=== PATIENT | male | born 1975 | race Two or more races ===

== ENCOUNTER 2017-01-01 12:29 | Inpatient (IN) | payer BC ==
[2017-01-01 13:50] VITALS: BMI 27.2
--- NOTE | 2017-01-01 16:54 | HP ---
COWS - Scale Resting Pulse: 0= [place] 80 or Below Sweatin= Chills/Flushing Restless Observation: 3= Extraneous Movement Pupil Size: 0= Normal to Room Light Bone or Joint Aches: 2= Severe Diffuse Aches Runny Nose/ Eye Tearin= Runny Nose/Eyes GI Upset > 30mins: 2= Nausea/Diarrhea Tremor Observation: 2= Slight Tremor Visible Yawning Observation: 0= None Anxiety or Irritability: 2=Irritable/Anxious Goose Flesh Skin: 0=Smooth Skin COWS Score: 14 CIWA Score - CIWA Score Nausea/Vomitin-Mild Nausea/No Vomiting Muscle Tremors: 3 Anxiety: 4-Mod. Anxious/Guarded Agitation: 4-Moderately Restless Paroxysmal Sweats: 1-Minimal Palms Moist Orientation: 0-Oriented Tacttile Disturbances: 0-None Auditory Disturbances: 0-None Visual Disturbances: 0-None Headache: 1-Very Mild CIWA-Ar Total Score: 14 Admission ROS BHS - HPI Chief Complaint: withdrawal sx Allergies/Adverse Reactions: Allergies Allergy/AdvReac Type Severity Reaction Status Date / Time No Known Allergies Allergy Verified 01/01/17 13:34 History of Present Illness: 41 years old male with long history of opiate cocaine xanax nicotine dependence has hypertension diabetes ii and depression, abscess in both arms treated at [facility] discharged clindamycin 100 mg qid x 10 days + bactrim ds bid x 7 days Exam Limitations: No Limitations - Ebola screening Have you traveled outside of the country in the last 21 days: No Have you had contact with anyone from an Ebola affected area: No Have you been sick,other than usual withdrawal symptoms: No Do you have a fever: No - Review of Systems Constitutional: Changes in sleep, Weight Stable EENT: reports: No Symptoms Reported Respiratory: reports: No Symptoms reported Cardiac: reports: No Symptoms Reported GI: reports: Nausea, Poor Fluid Intake, Abdominal cramping : reports: No Symptoms Reported Musculoskeletal: reports: Back Pain, Joint Pain, Muscle Pain, Neck Pain Integumentary: reports: Change in Color (both arms iv heroin abscess) Neuro: reports: Tremors Endocrine: reports: No Symptoms Reported Hematology: reports: No Symptoms Reported Psychiatric: reports: Judgement Intact, Orientated x3, Anxious, Depressed Other Systems: Reviewed and Negative Patient History - Patient Medical History Hx Anemia: No Hx Asthma: No Hx Chronic Obstructive Pulmonary Disease (COPD): No Hx Cancer: No Hx Cardiac Disorders: No Hx Congestive Heart Failure: No Hx Hypertension: Yes Hx Hypercholesterolemia: No Hx Pacemaker: No HX Cerebrovascular Accident: No Hx Seizures: No Hx Dementia: No Hx Diabetes: Yes (IDDM) Hx Gastrointestinal Disorders: No Hx Liver Disease: No Hx Genitourinary Disorders: No Hx Sexually Transmitted Disorders: No Hx Renal Disease (ESRD): No Hx Thyroid Disease: No Hx Human Immunodeficiency Virus (HIV): No Hx Hepatitis C: No Hx Depression: Yes Hx Suicide Attempt: No Hx Bipolar Disorder: No Hx Schizophrenia: No - Patient Surgical History Past Surgical History: Yes Hx Neurologic Surgery: No Hx Cataract Extraction: No Hx Cardiac Surgery: No Hx Lung Surgery: No Hx Breast Surgery: No Hx Breast Biopsy: No Hx Abdominal Surgery: No Hx Appendectomy: Yes (in 2013) Hx Cholecystectomy: No Hx Genitourinary Surgery: No Hx Orthopedic Surgery: No Anesthesia Reaction: No - PPD History Previous Implant?: Yes Documented Results: Negative w/o proof Implanted On Prior [facility] Admission?: No PPD to be Administered?: Yes - Smoking Cessation Smoking history: Current every day smoker Have you smoked in the past 12 months: Yes Aproximately how many cigarettes per day: 20 Cigars Per Day: 0 Hx Chewing Tobacco Use: No Initiated information on smoking cessation: Yes 'Breaking Loose' booklet given: 01/01/17 - Substance & Tx. History Hx Alcohol Use: No Hx Substance Use: Yes Substance Use Type: Cocaine, Heroin, Opiates, Tranquilizers Hx Substance Use Treatment: No - Substances Abused Heroin Route: Injection Frequency: Daily Amount used: 20 bags Age of first use: 38 Date of Last Use: 12/30/16 Cocaine Route: Injection Frequency: Daily Amount used: $100 Age of first use: 27 Date of Last Use: 12/30/16 Xanax Route: Oral Frequency: Daily Amount used: 10-20 mg. Age of first use: 41 Date of Last Use: 12/30/16 Family Disease History - Family Disease History Family Disease History: Diabetes: Father, Mother, Heart Disease: Father, Mother Admission Physical Exam BHS - Vital Signs Vital Signs: Vital Signs - 24 hr 01/01/17 13:45 Temperature 97.9 F Pulse Rate 67 Respiratory 20 Rate Blood Pressure 134/76 - Physical General Appearance: Yes: Appropriately Dressed, Mild Distress, Tremorous, Irritable, Sweating, Anxious HEENTM: Yes: Hearing grossly Normal, Normal ENT Inspection, Normocephalic, Normal Voice Respiratory: Yes: Chest Non-Tender, Lungs Clear, Normal Breath Sounds, No Respiratory Distress, No Accessory Muscle Use Neck: Yes: Supple, Trachea in good position Breast: Yes: Breasts Symetrical Cardiology: Yes: Regular Rhythm, Regular Rate, S1, S2 Abdominal: Yes: Normal Bowel Sounds, Non Tender, Soft Genitourinary: Yes: Within Normal Limits Back: Yes: Normal Inspection Musculoskeletal: Yes: full range of Motion, Gait Steady, Back pain, Muscle Pain Extremities: Yes: Normal Range of Motion, Non-Tender, Tremors Neurological: Yes: Fully Oriented, Alert, Motor Strength 5/5, Normal Response, Depressed Affect Integumentary: Yes: Warm, Erythema (both arms abscess), Track [place] Lymphatic: Yes: Within Normal Limits - Diagnostic (1) Cocaine dependence, uncomplicated Current Visit: Yes Status: Chronic (2) Opioid dependence with withdrawal Current Visit: Yes Status: Acute (3) Sedative, hypnotic or anxiolytic dependence with withdrawal, uncomplicated Current Visit: Yes Status: Acute (4) Hypertension Current Visit: Yes Status: Chronic Qualifiers: Hypertension type: essential hypertension Qualified Code(s): I10 - Essential (primary) hypertension (5) Diabetes mellitus type II, controlled Current Visit: Yes Status: Chronic Qualifiers: Diabetes mellitus complication status: without complication Diabetes mellitus terminal worker insulin use: with penitentiary use Qualified Code(s): E11.9 - Type 2 diabetes mellitus without complications; Z79.4 - intermediate frame tender (current) use of insulin; Z79.4 - intermediate frame tender (current) use of insulin; Z79.4 - intermediate frame tender ( current) use of insulin; Z79.4 - intermediate frame tender (current) use of insulin (6) Nicotine dependence Current Visit: Yes Status: Acute Qualifiers: Nicotine product type: cigarettes Substance use status: in withdrawal Qualified Code(s): F17.213 - Nicotine dependence, cigarettes, with withdrawal (7) Depression (emotion) Current Visit: Yes Status: Suspected Qualifiers: Depression Type: dysthymia Qualified Code(s): F34.1 - Dysthymic disorder (8) Abscess Current Visit: Yes Status: Acute Comment: both arms Cleared for Admission BHS - Detox or Rehab [facility] Level of Care: Medically Managed Detox Regimen/Protocol: Methadone/Valium [facility] Breath Alcohol Content Breath Alcohol Content: 0 Urine Drug Screen - Results Drug Screen Negative: No Urine Drug Screen Results: EUNICE-Cocaine, OPI-Opiates, BZO-Benzodiazepines, MTD- Methadone
[2017-01-01] MEDS ORDERED: MAGNESIUM CITRATE 300 ML BOTTLE PO PRN (16:57)
[2017-01-01] MEDS ORDERED: ACETAMINOPHEN 325 MG TABLET (FP) PO PRN (16:57)
[2017-01-01] MEDS ORDERED: IBUPROFEN 400 MG TABLET (FP) PO PRN (16:57)
[2017-01-01] MEDS ORDERED: P-EPHED 60MG/TRIPROLIDI 2.5MG TABLET PO PRN (16:57)
[2017-01-01] MEDS ORDERED: MAG HYDROX/AL HYDROX/SIMETH 30 ML UNIT-DOSE CUP PO PRN (16:57)
[2017-01-01] MEDS ORDERED: MAGNESIUM HYDROX 2400MG/30ML ORAL SUSPENSION 30 ML CUP PO PRN (16:57)
[2017-01-01] MEDS ORDERED: guaiFENesin/D-METHORPHAN HB 10 ML UNIT-DOSE CUPS PO PRN (16:57)
[2017-01-01] MEDS ORDERED: MENTHOL/PHENOL 1 EACH UD MM PRN (16:57)
[2017-01-01] MEDS ORDERED: LOPERAMIDE HCL 2 MG CAPSULE PO PRN (16:57)
[2017-01-01] MEDS ORDERED: BACLOFEN 10 MG TABLET (FP) PO PRN (17:04)
[2017-01-01] MEDS ORDERED: diazePAM 5 MG TABLET PO ONE (17:30)
[2017-01-01] MEDS ORDERED: METHADONE HCL 10 MG TABLET (FOR DETOX USE ONLY) PO ONE ×2 (17:45→23:00)
[2017-01-01] MEDS: CLINDAMYCIN HCL 150 MG CAPSULE (FP) PO SCH ×2 (18:59→22:41)
[2017-01-01] MEDS: NICOTINE POLACRILEX 2 MG GUM BC PRN (21:01)
[2017-01-01] MEDS: INSULIN SLIDING SCALE (NOVOLOG) 1 VIAL SQ SCH (22:03)
[2017-01-01] MEDS: THIAMINE HCL 100 MG TABLET (FP) PO SCH (22:41)
[2017-01-01] MEDS: diazePAM 5 MG TABLET PO SCH (22:41)
[2017-01-01] MEDS: SULFAMETHOXAZOLE/TRIMETHOPRIM 800MG/160MG D.S. TABLET PO SCH (22:42)
[2017-01-01 22:55] LABS: URINE APPEARANCE CLEAR; URINE BILIRUBIN NEGATIVE (NEGATIVE); URINE BLOOD NEGATIVE (NEGATIVE); URINE COLOR YELLOW; URINE GLUCOSE (UA) NEGATIVE (NEGATIVE); URINE KETONE NEGATIVE (NEGATIVE); URINE NITRITE NEGATIVE (NEGATIVE); URINE PROTEIN NEGATIVE (NEGATIVE); URINE UROBILINOGEN NEGATIVE mg/dL (0.2-1.0)
[2017-01-02] MEDS: diazePAM 5 MG TABLET PO PRN ×3 (04:05→18:20)
[2017-01-02] MEDS: diazePAM 5 MG TABLET PO SCH ×3 (05:22→22:38)
[2017-01-02] MEDS: INSULIN SLIDING SCALE (NOVOLOG) 1 VIAL SQ SCH ×4 (07:35→22:41)
[2017-01-02 09:09] LABS: HIV 1 & 2 AB NEGATIVE; HIV 1 AGp24 NEGATIVE
[2017-01-02 09:50] LABS: MCH 26.8 pg (25.7-33.7); MCHC 32.2 g/dl (32.0-35.9); MEAN CELL VOLUME 83.3 fl (80-96); MEAN PLT VOLUME 9.3 fl (7.5-11.1); PLATELET COUNT 242 K/MM3 (134-434); RDW 13.4 % (11.9-15.9); WHITE BLOOD COUNT 6.5 K/mm3 (4.0-10.0)
[2017-01-02] MEDS ORDERED: METHADONE HCL 10 MG TABLET (FOR DETOX USE ONLY) PO SCH (10:00)
[2017-01-02 10:14] LABS: ALBUMIN 4.1 g/dl (3.4-5.0); ALK PHOS 62 U/L (45-117); ANION GAP 10 (8-16); BILIRUBIN,TOTAL 0.4 mg/dL (0.2-1.0); CALCIUM 9.4 mg/dL (8.5-10.1); CO2 23 mmol/L (21-32); GLUCOSE,RANDOM 134 mg/dL (74-106); SGOT/AST 8 U/L (15-37); SGPT/ALT 15 U/L (12-78); TOT PROT 8.3 g/dl (6.4-8.2)
--- NOTE | 2017-01-02 10:41 | PN ---
[facility] CIWA - CIWA Score Nausea/Vomitin Muscle Tremors: 3 Anxiety: 3 Agitation: 2 Paroxysmal Sweats: 1-Minimal Palms Moist Orientation: 0-Oriented Tacttile Disturbances: 1-Very Mild Itch/Numbness Auditory Disturbances: 1-Very Mild Visual Disturbances: 0-None Headache: 2-Mild CIWA-Ar Total Score: 16 BHS COWS - Scale Resting Pulse: 0= [place] 80 or Below Sweatin= Chills/Flushing Restless Observation: 3= Extraneous Movement Pupil Size: 1= Pupils >than Normal Bone or Joint Aches: 2= Severe Diffuse Aches Runny Nose/ Eye Tearin= Runny Nose/Eyes GI Upset > 30mins: 2= Nausea/Diarrhea Tremor Observation of Outstretched Hands: 2= Slight Tremor Visible Yawning Observation: 1= 1-2x During Session Anxiety or Irritability: 2=Irritable/Anxious Goose Flesh Skin: 0=Smooth Skin COWS Score: 16 [facility] Progress Note (SOAP) Subjective: alert,irritable,anxious,interrupted sleep,pain in the body and back Objective: 01/02/17 10:39 Vital Signs Temperature 98.0 F 01/02/17 10:17 Pulse Rate 60 01/02/17 10:17 Respiratory Rate 18 01/02/17 10:17 Blood Pressure 134/79 01/02/17 10:17 O2 Sat by Pulse Oximetry (%) ekg sinus bradycardia 59/min no chest pain,no sob,no dizziness Laboratory Last Values WBC 6.5 K/mm3 (4.0-10.0) 01/02/17 06:00 RBC 4.68 M/mm3 (4.00-5.60) 01/02/17 06:00 Hgb 12.5 GM/dL (11.7-16.9) 01/02/17 06:00 Hct 39.0 % (35.4-49) 01/02/17 06:00 MCV 83.3 fl (80-96) 01/02/17 06:00 MCH 26.8 pg (25.7-33.7) 01/02/17 06:00 MCHC 32.2 g/dl (32.0-35.9) 01/02/17 06:00 RDW 13.4 % (11.9-15.9) 01/02/17 06:00 Plt Count 242 K/MM3 (134-434) 01/02/17 06:00 MPV 9.3 fl (7.5-11.1) 01/02/17 06:00 Sodium 142 mmol/L (136-145) 01/02/17 06:00 Potassium 3.9 mmol/L (3.5-5.1) 01/02/17 06:00 Chloride 109 mmol/L (98-107) H 01/02/17 06:00 Carbon Dioxide 23 mmol/L (21-32) 01/02/17 06:00 Anion Gap 10 (8-16) 01/02/17 06:00 BUN 11 mg/dL (7-18) 01/02/17 06:00 Creatinine 1.0 mg/dL (0.7-1.3) 01/02/17 06:00 Creat Clearance w eGFR > 60 (>60) 01/02/17 06:00 POC Glucometer 87 UNITS (80-120) 01/02/17 05:21 Random Glucose 134 mg/dL (74-106) H 01/02/17 06:00 Calcium 9.4 mg/dL (8.5-10.1) 01/02/17 06:00 Total Bilirubin 0.4 mg/dL (0.2-1.0) 01/02/17 06:00 AST 8 U/L (15-37) L 01/02/17 06:00 ALT 15 U/L (12-78) 01/02/17 06:00 Alkaline Phosphatase 62 U/L (45-117) 01/02/17 06:00 Total Protein 8.3 g/dl (6.4-8.2) H 01/02/17 06:00 Albumin 4.1 g/dl (3.4-5.0) 01/02/17 06:00 Urine Color Yellow 01/01/17 22:00 Urine Appearance Clear 01/01/17 22:00 Urine pH 5.0 (5.0-8.0) 01/01/17 22:00 Ur Specific [place] 1.029 (1.001-1.035) 01/01/17 22:00 Urine Protein Negative (NEGATIVE) 01/01/17 22:00 Urine Glucose (UA) Negative (NEGATIVE) 01/01/17 22:00 Urine Ketones Negative (NEGATIVE) 01/01/17 22:00 Urine Blood Negative (NEGATIVE) 01/01/17 22:00 Urine Nitrite Negative (NEGATIVE) 01/01/17 22:00 Urine Bilirubin Negative (NEGATIVE) 01/01/17 22:00 Urine Urobilinogen Negative mg/dL (0.2-1.0) 01/01/17 22:00 HIV 1&2 Antibody Screen Negative 01/01/17 15:00 HIV P24 Antigen Negative 01/01/17 15:00 Assessment: 01/02/17 10:40 withdrawal symptom Plan: continue detox,bgm bid,initial glucose is 134
--- NOTE | 2017-01-02 10:50 | PN ---
BHS Progress Note Note: patient is iddm on coverage ,will do bgm achs with insulin coverage
[2017-01-02] MEDS ORDERED: CYCLOBENZAPRINE HCL 10 MG TABLET (FP) PO PRN (10:54)
[2017-01-02] MEDS: SULFAMETHOXAZOLE/TRIMETHOPRIM 800MG/160MG D.S. TABLET PO SCH ×2 (10:56→22:39)
[2017-01-02] MEDS: PRENATAL VITAMINS W/ FOLIC ACID TABLET (FP) PO SCH (10:56)
[2017-01-02] MEDS: CLINDAMYCIN HCL 150 MG CAPSULE (FP) PO SCH ×4 (10:56→22:38)
[2017-01-02] MEDS: ENALAPRIL MALEATE 10 MG TABLET (FP) PO SCH (10:56)
[2017-01-02] MEDS: NICOTINE 21 MG/24 HOURS TOPICAL PATCH TD SCH (10:57)
[2017-01-02] MEDS: NICOTINE POLACRILEX 2 MG GUM BC PRN ×2 (10:57→18:36)
[2017-01-02] MEDS ORDERED: cloNIDine HCL 0.1 MG TABLET PO ONE (11:13)
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
[2017-01-02 17:49] LABS: URINE LEUK ESTERASE Negative (NEGATIVE)
[2017-01-02] MEDS: THIAMINE HCL 100 MG TABLET (FP) PO SCH (22:38)
[2017-01-02] MEDS: ZOLPIDEM TARTRATE 10 MG TABLET (PARK CARE ONLY) PO PRN (22:40)
[2017-01-02] MEDS: cloNIDine HCL 0.1 MG TABLET PO SCH (22:41)
[2017-01-02] MEDS: busPIRone HCL 10 MG TABLET (FP) PO SCH (22:41)
[2017-01-03] MEDS: diazePAM 5 MG TABLET PO PRN ×3 (03:00→17:18)
[2017-01-03] MEDS: INSULIN SLIDING SCALE (NOVOLOG) 1 VIAL SQ SCH ×4 (06:38→21:58)
[2017-01-03] MEDS: diazePAM 5 MG TABLET PO SCH ×2 (08:59→22:40)
[2017-01-03] MEDS: PRENATAL VITAMINS W/ FOLIC ACID TABLET (FP) PO SCH (10:56)
[2017-01-03] MEDS: METHADONE HCL 5 MG TABLET (FOR DETOX USE ONLY) PO SCH (10:56)
[2017-01-03] MEDS: ENALAPRIL MALEATE 10 MG TABLET (FP) PO SCH (10:57)
[2017-01-03] MEDS: CLINDAMYCIN HCL 150 MG CAPSULE (FP) PO SCH ×4 (10:57→22:39)
[2017-01-03] MEDS: cloNIDine HCL 0.1 MG TABLET PO SCH ×2 (10:58→22:39)
[2017-01-03] MEDS: NICOTINE 21 MG/24 HOURS TOPICAL PATCH TD SCH (10:59)
[2017-01-03] MEDS: NICOTINE POLACRILEX 2 MG GUM BC PRN ×2 (10:59→16:43)
[2017-01-03] MEDS: SULFAMETHOXAZOLE/TRIMETHOPRIM 800MG/160MG D.S. TABLET PO SCH ×2 (10:59→22:40)
[2017-01-03] MEDS: busPIRone HCL 10 MG TABLET (FP) PO SCH ×2 (11:02→22:39)
--- NOTE | 2017-01-03 15:04 | PN ---
[facility] CIWA - CIWA Score Nausea/Vomitin-No Nausea/No Vomiting Muscle Tremors: 4-Moderate,w/Arms Extend Anxiety: 4-Mod. Anxious/Guarded Agitation: 4-Moderately Restless Paroxysmal Sweats: 3 Orientation: 0-Oriented Tacttile Disturbances: 0-None Auditory Disturbances: 0-None Visual Disturbances: 0-None Headache: 0-None Present CIWA-Ar Total Score: 15 BHS COWS - Scale Resting Pulse: 0= [place] 80 or Below Sweatin=Flushed/Facial Moisture Restless Observation: 1= Difficult to Sit Still Pupil Size: 0= Normal to Room Light Bone or Joint Aches: 2= Severe Diffuse Aches Runny Nose/ Eye Tearin= Runny Nose/Eyes GI Upset > 30mins: 2= Nausea/Diarrhea Tremor Observation of Outstretched Hands: 2= Slight Tremor Visible Yawning Observation: 1= 1-2x During Session Anxiety or Irritability: 2=Irritable/Anxious Goose Flesh Skin: 0=Smooth Skin COWS Score: 14 S Progress Note (SOAP) Subjective: anxiety,tremors,sweating,interrupted sleep,restless Objective: 01/03/17 15:02 Vital Signs - 8 hr 01/03/17 01/03/17 10:00 14:08 Temperature 97.9 F 98.1 F Pulse Rate 55 L 67 Respiratory 18 18 Rate Blood Pressure 117/67 112/70 Laboratory Tests 01/01/17 01/01/17 01/01/17 06:00 14:01 15:00 WBC RBC Hgb Hct MCV MCH MCHC RDW Plt Count MPV Sodium Potassium Chloride Carbon Dioxide Anion Gap BUN Creatinine Creat Clearance w eGFR POC Glucometer 101 Random Glucose Calcium Total Bilirubin AST ALT Alkaline Phosphatase Total Protein Albumin Urine Color Urine Appearance Urine pH Ur Specific [place] Urine Protein Urine Glucose (UA) Urine Ketones Urine Blood Urine Nitrite Urine Bilirubin Urine Urobilinogen Ur Leukocyte Esterase RPR Titer Hepatitis C Antibody >11.0 H HIV 1&2 Antibody Screen Negative HIV P24 Antigen Negative 01/01/17 01/01/17 01/02/17 21:55 22:00 05:21 WBC RBC Hgb Hct MCV MCH MCHC RDW Plt Count MPV Sodium Potassium Chloride Carbon Dioxide Anion Gap BUN Creatinine Creat Clearance w eGFR POC Glucometer 102 87 Random Glucose Calcium Total Bilirubin AST ALT Alkaline Phosphatase Total Protein Albumin Urine Color Yellow Urine Appearance Clear Urine pH 5.0 Ur Specific [place] 1.029 Urine Protein Negative Urine Glucose (UA) Negative Urine Ketones Negative Urine Blood Negative Urine Nitrite Negative Urine Bilirubin Negative Urine Urobilinogen Negative Ur Leukocyte Esterase Negative RPR Titer Hepatitis C Antibody HIV 1&2 Antibody Screen HIV P24 Antigen 01/02/17 01/02/17 01/02/17 06:00 06:00 06:00 WBC 6.5 RBC 4.68 Hgb 12.5 Hct 39.0 MCV 83.3 MCH 26.8 MCHC 32.2 RDW 13.4 Plt Count 242 MPV 9.3 Sodium 142 Potassium 3.9 Chloride 109 H Carbon Dioxide 23 Anion Gap 10 BUN 11 Creatinine 1.0 Creat Clearance w eGFR > 60 POC Glucometer Random Glucose 134 H Calcium 9.4 Total Bilirubin 0.4 AST 8 L ALT 15 Alkaline Phosphatase 62 Total Protein 8.3 H Albumin 4.1 Urine Color Urine Appearance Urine pH Ur Specific [place] Urine Protein Urine Glucose (UA) Urine Ketones Urine Blood Urine Nitrite Urine Bilirubin Urine Urobilinogen Ur Leukocyte Esterase RPR Titer Nonreactive Hepatitis C Antibody HIV 1&2 Antibody Screen HIV P24 Antigen 01/02/17 01/02/17 01/02/17 11:19 16:20 22:37 WBC RBC Hgb Hct MCV MCH MCHC RDW Plt Count MPV Sodium Potassium Chloride Carbon Dioxide Anion Gap BUN Creatinine Creat Clearance w eGFR POC Glucometer 119 118 149 Random Glucose Calcium Total Bilirubin AST ALT Alkaline Phosphatase Total Protein Albumin Urine Color Urine Appearance Urine pH Ur Specific [place] Urine Protein Urine Glucose (UA) Urine Ketones Urine Blood Urine Nitrite Urine Bilirubin Urine Urobilinogen Ur Leukocyte Esterase RPR Titer Hepatitis C Antibody HIV 1&2 Antibody Screen HIV P24 Antigen labs noted Assessment: 01/03/17 15:03 Withdrawal sx. Plan: Continue detox
[2017-01-03] MEDS: THIAMINE HCL 100 MG TABLET (FP) PO SCH (22:39)
[2017-01-04] MEDS: diazePAM 5 MG TABLET PO PRN ×2 (04:10→14:10)
[2017-01-04] MEDS: INSULIN SLIDING SCALE (NOVOLOG) 1 VIAL SQ SCH ×4 (06:49→22:23)
[2017-01-04] MEDS: NICOTINE 21 MG/24 HOURS TOPICAL PATCH TD SCH (10:24)
[2017-01-04] MEDS: SULFAMETHOXAZOLE/TRIMETHOPRIM 800MG/160MG D.S. TABLET PO SCH ×2 (10:24→22:22)
[2017-01-04] MEDS: diazePAM 5 MG TABLET PO SCH ×2 (10:24→22:22)
[2017-01-04] MEDS: CLINDAMYCIN HCL 150 MG CAPSULE (FP) PO SCH ×4 (10:24→22:22)
[2017-01-04] MEDS: PRENATAL VITAMINS W/ FOLIC ACID TABLET (FP) PO SCH (10:24)
[2017-01-04] MEDS: cloNIDine HCL 0.1 MG TABLET PO SCH ×2 (10:25→22:26)
[2017-01-04] MEDS: ENALAPRIL MALEATE 10 MG TABLET (FP) PO SCH (10:25)
[2017-01-04] MEDS: METHADONE HCL 5 MG TABLET (FOR DETOX USE ONLY) PO SCH (10:25)
[2017-01-04] MEDS: busPIRone HCL 10 MG TABLET (FP) PO SCH ×2 (10:26→22:22)
[2017-01-04] MEDS: NICOTINE POLACRILEX 2 MG GUM BC PRN (10:28)
[2017-01-04] MEDS ORDERED: ONDANSETRON *ODT* 4 MG TABLET SL PRN (11:02)
[2017-01-04] MEDS ORDERED: ONDANSETRON *ODT* 4 MG TABLET SL ONE (11:02)
[2017-01-04] MEDS ORDERED: IBUPROFEN 400 MG TABLET (FP) PO PRN (11:08)
--- NOTE | 2017-01-04 11:14 | PN ---
[facility]HS Progress Note (SOAP) Subjective: Nausea,sweating,muscle aches,anxiety. Objective: 01/04/17 11:12 Vital Signs - 8 hr 01/04/17 01/04/17 01/04/17 03:30 06:00 09:31 Temperature 97.7 F 97.5 F L Pulse Rate 49 L 55 L Respiratory 18 18 18 Rate Blood Pressure 95/49 98/61 Laboratory Tests 01/01/17 01/01/17 01/01/17 06:00 14:01 15:00 WBC RBC Hgb Hct MCV MCH MCHC RDW Plt Count MPV Sodium Potassium Chloride Carbon Dioxide Anion Gap BUN Creatinine Creat Clearance w eGFR POC Glucometer 101 Random Glucose Calcium Total Bilirubin AST ALT Alkaline Phosphatase Total Protein Albumin Urine Color Urine Appearance Urine pH Ur Specific [place] Urine Protein Urine Glucose (UA) Urine Ketones Urine Blood Urine Nitrite Urine Bilirubin Urine Urobilinogen Ur Leukocyte Esterase RPR Titer Hepatitis C Antibody >11.0 H HIV 1&2 Antibody Screen Negative HIV P24 Antigen Negative 01/01/17 01/01/17 01/02/17 21:55 22:00 05:21 WBC RBC Hgb Hct MCV MCH MCHC RDW Plt Count MPV Sodium Potassium Chloride Carbon Dioxide Anion Gap BUN Creatinine Creat Clearance w eGFR POC Glucometer 102 87 Random Glucose Calcium Total Bilirubin AST ALT Alkaline Phosphatase Total Protein Albumin Urine Color Yellow Urine Appearance Clear Urine pH 5.0 Ur Specific [place] 1.029 Urine Protein Negative Urine Glucose (UA) Negative Urine Ketones Negative Urine Blood Negative Urine Nitrite Negative Urine Bilirubin Negative Urine Urobilinogen Negative Ur Leukocyte Esterase Negative RPR Titer Hepatitis C Antibody HIV 1&2 Antibody Screen HIV P24 Antigen 01/02/17 01/02/17 01/02/17 06:00 06:00 06:00 WBC 6.5 RBC 4.68 Hgb 12.5 Hct 39.0 MCV 83.3 MCH 26.8 MCHC 32.2 RDW 13.4 Plt Count 242 MPV 9.3 Sodium 142 Potassium 3.9 Chloride 109 H Carbon Dioxide 23 Anion Gap 10 BUN 11 Creatinine 1.0 Creat Clearance w eGFR > 60 POC Glucometer Random Glucose 134 H Calcium 9.4 Total Bilirubin 0.4 AST 8 L ALT 15 Alkaline Phosphatase 62 Total Protein 8.3 H Albumin 4.1 Urine Color Urine Appearance Urine pH Ur Specific [place] Urine Protein Urine Glucose (UA) Urine Ketones Urine Blood Urine Nitrite Urine Bilirubin Urine Urobilinogen Ur Leukocyte Esterase RPR Titer Nonreactive Hepatitis C Antibody HIV 1&2 Antibody Screen HIV P24 Antigen 01/02/17 01/02/17 01/02/17 11:19 16:20 22:37 WBC RBC Hgb Hct MCV MCH MCHC RDW Plt Count MPV Sodium Potassium Chloride Carbon Dioxide Anion Gap BUN Creatinine Creat Clearance w eGFR POC Glucometer 119 118 149 Random Glucose Calcium Total Bilirubin AST ALT Alkaline Phosphatase Total Protein Albumin Urine Color Urine Appearance Urine pH Ur Specific [place] Urine Protein Urine Glucose (UA) Urine Ketones Urine Blood Urine Nitrite Urine Bilirubin Urine Urobilinogen Ur Leukocyte Esterase RPR Titer Hepatitis C Antibody HIV 1&2 Antibody Screen HIV P24 Antigen 01/03/17 01/04/17 21:41 06:08 WBC RBC Hgb Hct MCV MCH MCHC RDW Plt Count MPV Sodium Potassium Chloride Carbon Dioxide Anion Gap BUN Creatinine Creat Clearance w eGFR POC Glucometer 106 90 Random Glucose Calcium Total Bilirubin AST ALT Alkaline Phosphatase Total Protein Albumin Urine Color Urine Appearance Urine pH Ur Specific [place] Urine Protein Urine Glucose (UA) Urine Ketones Urine Blood Urine Nitrite Urine Bilirubin Urine Urobilinogen Ur Leukocyte Esterase RPR Titer Hepatitis C Antibody HIV 1&2 Antibody Screen HIV P24 Antigen labs noted Assessment: 01/04/17 11:13 Withdrawal sx. Plan: Continue detox
[2017-01-04] MEDS: CYCLOBENZAPRINE HCL 10 MG TABLET (FP) PO SCH ×2 (14:06→22:22)
[2017-01-04] MEDS: hydrOXYzine PAMOATE 50 MG CAPSULE (FP) PO PRN (18:18)
[2017-01-04] MEDS: THIAMINE HCL 100 MG TABLET (FP) PO SCH (22:22)
[2017-01-04] MEDS: ZOLPIDEM TARTRATE 10 MG TABLET (PARK CARE ONLY) PO PRN (22:22)
[2017-01-05] MEDS: hydrOXYzine PAMOATE 50 MG CAPSULE (FP) PO PRN (06:09)
[2017-01-05] MEDS: CYCLOBENZAPRINE HCL 10 MG TABLET (FP) PO SCH (06:10)
[2017-01-05] MEDS: INSULIN SLIDING SCALE (NOVOLOG) 1 VIAL SQ SCH (06:11)
--- NOTE | 2017-01-05 09:40 | EKG ---
Test Reason : Blood Pressure : / mmHG Vent. Rate : 059 BPM Atrial Rate : 059 BPM P-R Int : 154 ms QRS Dur : 094 ms QT Int : 398 ms P-R-T Axes : 031 026 015 degrees QTc Int : 394 ms SINUS BRADYCARDIA OTHERWISE NORMAL ECG NO PREVIOUS ECGS AVAILABLE Confirmed by OSIRIS RODRIGUEZ, BEN ([id number]) on 01/05/2017 9:39:34 AM Referred By: Confirmed By:BEN NEWELL MD
--- NOTE | 2017-01-05 09:50 | PN ---
S Progress Note (SOAP) Subjective: alert,no complaint Objective: 01/05/17 09:46 Vital Signs Temperature 98.3 F 01/05/17 06:04 Pulse Rate 50 L 01/05/17 06:04 Respiratory Rate 18 01/05/17 06:04 Blood Pressure 114/62 01/05/17 06:04 O2 Sat by Pulse Oximetry (%) 01/05/17 09:47 Laboratory Last Values WBC 6.5 K/mm3 (4.0-10.0) 01/02/17 06:00 RBC 4.68 M/mm3 (4.00-5.60) 01/02/17 06:00 Hgb 12.5 GM/dL (11.7-16.9) 01/02/17 06:00 Hct 39.0 % (35.4-49) 01/02/17 06:00 MCV 83.3 fl (80-96) 01/02/17 06:00 MCH 26.8 pg (25.7-33.7) 01/02/17 06:00 MCHC 32.2 g/dl (32.0-35.9) 01/02/17 06:00 RDW 13.4 % (11.9-15.9) 01/02/17 06:00 Plt Count 242 K/MM3 (134-434) 01/02/17 06:00 MPV 9.3 fl (7.5-11.1) 01/02/17 06:00 Sodium 142 mmol/L (136-145) 01/02/17 06:00 Potassium 3.9 mmol/L (3.5-5.1) 01/02/17 06:00 Chloride 109 mmol/L (98-107) H 01/02/17 06:00 Carbon Dioxide 23 mmol/L (21-32) 01/02/17 06:00 Anion Gap 10 (8-16) 01/02/17 06:00 BUN 11 mg/dL (7-18) 01/02/17 06:00 Creatinine 1.0 mg/dL (0.7-1.3) 01/02/17 06:00 Creat Clearance w eGFR > 60 (>60) 01/02/17 06:00 POC Glucometer 82 UNITS (80-120) 01/05/17 06:08 Random Glucose 134 mg/dL (74-106) H 01/02/17 06:00 Calcium 9.4 mg/dL (8.5-10.1) 01/02/17 06:00 Total Bilirubin 0.4 mg/dL (0.2-1.0) 01/02/17 06:00 AST 8 U/L (15-37) L 01/02/17 06:00 ALT 15 U/L (12-78) 01/02/17 06:00 Alkaline Phosphatase 62 U/L (45-117) 01/02/17 06:00 Total Protein 8.3 g/dl (6.4-8.2) H 01/02/17 06:00 Albumin 4.1 g/dl (3.4-5.0) 01/02/17 06:00 Urine Color Yellow 01/01/17 22:00 Urine Appearance Clear 01/01/17 22:00 Urine pH 5.0 (5.0-8.0) 01/01/17 22:00 Ur Specific [place] 1.029 (1.001-1.035) 01/01/17 22:00 Urine Protein Negative (NEGATIVE) 01/01/17 22:00 Urine Glucose (UA) Negative (NEGATIVE) 01/01/17 22:00 Urine Ketones Negative (NEGATIVE) 01/01/17 22:00 Urine Blood Negative (NEGATIVE) 01/01/17 22:00 Urine Nitrite Negative (NEGATIVE) 01/01/17 22:00 Urine Bilirubin Negative (NEGATIVE) 01/01/17 22:00 Urine Urobilinogen Negative mg/dL (0.2-1.0) 01/01/17 22:00 Ur Leukocyte Esterase Negative (NEGATIVE) 01/01/17 22:00 RPR Titer Nonreactive (NONREACTIVE) 01/02/17 06:00 Hepatitis C Antibody >11.0 s/co ratio (0.0-0.9) H 01/01/17 06:00 HIV 1&2 Antibody Screen Negative 01/01/17 15:00 HIV P24 Antigen Negative 01/01/17 15:00 patient will go to clinic at [facility] for evaluation and treatment of hepatitis c Assessment: 01/05/17 09:49 patient would like to leave,stable for discharge Plan: discharge today
--- NOTE | 2017-01-05 09:57 | DS ---
[facility] Detox Discharge Summary Admission Date: 01/01/17 Discharge Date: 01/05/17 - History Present History: Cocaine Dependence, Opioid Dependence, Sedative Dependence Additional Comments: patient will be followed up with clinic at [facility] for evaluation and treatment of hepatitis c and after care program as arrangement Pertinent Past History: hypertension type 2 dm nicotine dependence depression abscess of right forearm - Physical Exam Results Vital Signs: Vital Signs Temperature 98.3 F 01/05/17 06:04 Pulse Rate 50 L 01/05/17 06:04 Respiratory Rate 18 01/05/17 06:04 Blood Pressure 114/62 01/05/17 06:04 O2 Sat by Pulse Oximetry (%) Pertinent Admission Physical Exam Findings: withdrawal symptom - Treatment Hospital Course: Detox Protocol Followed, Detoxed Safely, Responded well, Discharged Condition Good Patient has Accepted a Rehab Referral to: declined - Medication Discharge Medications: Ambulatory Orders Clindamycin HCl 300 mg PO QID 01/01/17 Enalapril Maleate [Vasotec -] 10 mg PO DAILY 01/01/17 Insulin Regular [NOVOLIN R VIAL *IVPUSH / ER / ICU Only*] 0 units SQ BIDAC PRN 01/01/17 Sulfamethoxazole/Trimethoprim [Bactrim Ds -] 1 tab PO BID 01/01/17 Buspirone HCl [Buspar -] 10 mg PO BID #30 tablet 01/02/17 - Diagnosis (1) Abscess Current Visit: Yes Status: Acute (2) Nicotine dependence Current Visit: Yes Status: Acute Qualifiers: Nicotine product type: cigarettes Substance use status: in withdrawal Qualified Code(s): F17.213 - Nicotine dependence, cigarettes, with withdrawal (3) Opioid dependence with withdrawal Current Visit: Yes Status: Acute (4) Sedative, hypnotic or anxiolytic dependence with withdrawal, uncomplicated Current Visit: Yes Status: Acute (5) Cocaine dependence, uncomplicated Current Visit: Yes Status: Acute (6) Diabetes mellitus type II, controlled Current Visit: Yes Status: Chronic Qualifiers: Diabetes mellitus complication status: without complication Diabetes mellitus long term care social worker insulin use: with residential use Qualified Code(s): E11.9 - Type 2 diabetes mellitus without complications; Z79.4 - prison (current) use of insulin; Z79.4 - long term care social worker (current) use of insulin; Z79.4 - prison ( current) use of insulin; Z79.4 - prison (current) use of insulin (7) Hypertension Current Visit: Yes Status: Chronic Qualifiers: Hypertension type: essential hypertension Qualified Code(s): I10 - Essential (primary) hypertension (8) Depression (emotion) Current Visit: Yes Status: Suspected Qualifiers: Depression Type: dysthymia Qualified Code(s): F34.1 - Dysthymic disorder - AMA Did Patient Leave Against Medical Advice: No
[2017-01-05] MEDS ORDERED: diazePAM 5 MG TABLET PO SCH (10:00)
[2017-01-05] MEDS ORDERED: METHADONE HCL 10 MG TABLET (FOR DETOX USE ONLY) PO SCH (10:00)
[2017-01-05] MEDS: CLINDAMYCIN HCL 150 MG CAPSULE (FP) PO SCH (10:15)
[2017-01-05] MEDS: PRENATAL VITAMINS W/ FOLIC ACID TABLET (FP) PO SCH (10:19)
[2017-01-05] MEDS: SULFAMETHOXAZOLE/TRIMETHOPRIM 800MG/160MG D.S. TABLET PO SCH (10:20)
[2017-01-05] MEDS: cloNIDine HCL 0.1 MG TABLET PO SCH (10:20)
[2017-01-05] MEDS: ENALAPRIL MALEATE 10 MG TABLET (FP) PO SCH (10:20)
[2017-01-05] MEDS: busPIRone HCL 10 MG TABLET (FP) PO SCH (10:23)
[2017-01-05 10:56] VITALS: BP 115/65; PULSE 58; TEMP 97.9
[2017-01-06] MEDS ORDERED: METHADONE HCL 5 MG TABLET (FOR DETOX USE ONLY) PO SCH (06:00)
== END 2017-01-05 10:54 | disposition home or self-care (01) | DRG 773 ==
LOC: YASAS 12:29 → Y6N 14:54
PROVIDERS: ADMIT Internal Medicine; ATTEND Internal Medicine
PROC: HZ2ZZZZ Detoxification Services for Substance Abuse Treatment (ICD-10-PCS; principal; 2017-01-01)
DX: F11.23 Opioid dependence with withdrawal (principal); F13.230 Sedative, hypnotic or anxiolytic dependence with withdrawal, uncomplicated; F14.20 Cocaine dependence, uncomplicated; F17.210 Nicotine dependence, cigarettes, uncomplicated; F34.1 Dysthymic disorder; F19.24 Other psychoactive substance dependence with psychoactive substance-induced mood disorder; I10 Essential (primary) hypertension; G47.00 Insomnia, unspecified; E11.9 Type 2 diabetes mellitus without complications; Z79.4 Long term (current) use of insulin; B18.2 Chronic viral hepatitis C; L02.414 Cutaneous abscess of left upper limb; L02.413 Cutaneous abscess of right upper limb
CPT/HCPCS: 36415; 80053; 81003; 85027; 86593; 86803; 87389; 87522; 93005; 93010

== ENCOUNTER 2017-04-23 09:12 | Inpatient (IN) | payer OTHER ==
[2017-04-23 11:22] VITALS: BMI 24.3
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
[2017-04-23] MEDS ORDERED: ACETAMINOPHEN 325 MG TABLET (FP) PO PRN (14:49)
[2017-04-23] MEDS ORDERED: MAGNESIUM HYDROX 2400MG/30ML ORAL SUSPENSION 30 ML CUP PO PRN (14:49)
[2017-04-23] MEDS ORDERED: guaiFENesin/D-METHORPHAN HB 10 ML UNIT-DOSE CUPS PO PRN (14:49)
[2017-04-23] MEDS ORDERED: MAG HYDROX/AL HYDROX/SIMETH 30 ML UNIT-DOSE CUP PO PRN (14:49)
[2017-04-23] MEDS ORDERED: IBUPROFEN 400 MG TABLET (FP) PO PRN (14:49)
[2017-04-23] MEDS ORDERED: MAGNESIUM CITRATE 300 ML BOTTLE PO PRN (14:49)
[2017-04-23] MEDS ORDERED: MENTHOL/PHENOL 1 EACH UD MM PRN (14:49)
[2017-04-23] MEDS ORDERED: LOPERAMIDE HCL 2 MG CAPSULE PO PRN (14:49)
[2017-04-23] MEDS ORDERED: P-EPHED 60MG/TRIPROLIDI 2.5MG TABLET PO PRN (14:49)
[2017-04-23] MEDS ORDERED: NICOTINE POLACRILEX 2 MG GUM BUC PRN (14:49)
[2017-04-23] MEDS ORDERED: METHADONE HCL 10 MG TABLET (FOR DETOX USE ONLY) PO ONE ×2 (15:00→23:00)
[2017-04-23] MEDS ORDERED: diazePAM 5 MG TABLET PO ONE (15:00)
[2017-04-23] MEDS: NICOTINE 21 MG/24 HOURS TOPICAL PATCH TD SCH (16:00)
[2017-04-23] MEDS: CLINDAMYCIN HCL 150 MG CAPSULE (FP) PO SCH ×2 (16:00→22:30)
[2017-04-23] MEDS: INSULIN SLIDING SCALE (NOVOLOG) 1 VIAL SQ SCH ×2 (16:41→22:00)
[2017-04-23 17:05] LABS: HEMATOCRIT 32.7 % (35.4-49); MCH 27.6 pg (25.7-33.7); MCHC 33.5 g/dl (32.0-35.9); MEAN CELL VOLUME 82.3 fl (80-96); MEAN PLT VOLUME 8.7 fl (7.5-11.1); PLATELET COUNT 155 K/MM3 (134-434); RBC 3.97 M/mm3 (4.00-5.60); WHITE BLOOD COUNT 4.5 K/mm3 (4.0-10.0)
[2017-04-23 17:07] LABS: URINE APPEARANCE CLOUDY; URINE BILIRUBIN NEGATIVE (NEGATIVE); URINE BLOOD NEGATIVE (NEGATIVE); URINE COLOR AMBER; URINE GLUCOSE (UA) NEGATIVE (NEGATIVE); URINE KETONE NEGATIVE (NEGATIVE); URINE LEUK ESTERASE NEGATIVE (NEGATIVE); URINE NITRITE NEGATIVE (NEGATIVE); URINE UROBILINOGEN NEGATIVE mg/dL (0.2-1.0)
[2017-04-23 17:09] LABS: URINE PROTEIN 1+ (NEGATIVE)
[2017-04-23 17:27] LABS: CHLORIDE 104 mmol/L (98-107); POTASSIUM 3.9 mmol/L (3.5-5.1); SODIUM 136 mmol/L (136-145)
[2017-04-23 17:45] LABS: ALBUMIN 3.2 g/dl (3.4-5.0); ALK PHOS 202 U/L (45-117); ANION GAP 10 (8-16); BILIRUBIN,TOTAL 0.7 mg/dL (0.2-1.0); BLOOD UREA NITROGEN 18 mg/dL (7-18); CALCIUM 8.3 mg/dL (8.5-10.1); CO2 22 mmol/L (21-32); GLUCOSE,RANDOM 114 mg/dL (74-106); SGOT/AST 226 U/L (15-37); SGPT/ALT 730 U/L (12-78)
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
[2017-04-23 17:58] LABS: URINE MUCUS RARE
[2017-04-23] MEDS ORDERED: diphenhydrAMINE HCL 50 MG CAPSULE PO PRN (22:00)
[2017-04-23] MEDS: BACITRACIN 0.9 GM PACKET TP SCH (22:30)
[2017-04-23] MEDS: diazePAM 5 MG TABLET PO SCH (22:31)
[2017-04-23] MEDS: THIAMINE HCL 100 MG TABLET (FP) PO SCH (22:32)
[2017-04-24] MEDS: diazePAM 5 MG TABLET PO PRN ×2 (02:56→10:43)
[2017-04-24] MEDS: CYCLOBENZAPRINE HCL 10 MG TABLET (FP) PO PRN (02:56)
[2017-04-24] MEDS: CLINDAMYCIN HCL 150 MG CAPSULE (FP) PO SCH ×3 (05:54→21:43)
[2017-04-24] MEDS: diazePAM 5 MG TABLET PO SCH ×3 (05:54→21:43)
[2017-04-24] MEDS: INSULIN SLIDING SCALE (NOVOLOG) 1 VIAL SQ SCH ×4 (07:06→21:44)
--- NOTE | 2017-04-24 09:48 | EKG ---
Test Reason : Blood Pressure : / mmHG Vent. Rate : 070 BPM Atrial Rate : 070 BPM P-R Int : 148 ms QRS Dur : 096 ms QT Int : 404 ms P-R-T Axes : 052 037 023 degrees QTc Int : 436 ms NORMAL SINUS RHYTHM NORMAL ECG WHEN COMPARED WITH ECG OF 01-JAN-2017 19:05, NO SIGNIFICANT CHANGE WAS FOUND Confirmed by BEN NEWELL MD ([id number]) on 04/24/2017 9:48:02 AM Referred By: Confirmed By:BEN NEWELL MD
[2017-04-24] MEDS ORDERED: METHADONE HCL 10 MG TABLET (FOR DETOX USE ONLY) PO SCH (10:00)
[2017-04-24] MEDS: PRENATAL VITAMINS W/ FOLIC ACID TABLET (FP) PO SCH (10:41)
[2017-04-24] MEDS: NAPROXEN 375 MG TABLET (FP) PO SCH ×2 (10:41→21:44)
[2017-04-24] MEDS: ENALAPRIL MALEATE 10 MG TABLET (FP) PO SCH (10:41)
[2017-04-24] MEDS: BACITRACIN 0.9 GM PACKET TP SCH ×3 (10:41→21:43)
[2017-04-24] MEDS: NICOTINE 21 MG/24 HOURS TOPICAL PATCH TD SCH (10:42)
[2017-04-24] MEDS: POVIDONE-IODINE 10% SOLN 118 ML BOTTLE TP SCH (10:43)
--- NOTE | 2017-04-24 12:06 | PN ---
S CIWA - CIWA Score Nausea/Vomitin Muscle Tremors: 3 Anxiety: 5 Agitation: 3 Paroxysmal Sweats: 3 Orientation: 0-Oriented Tacttile Disturbances: 2-Mild Itch/Numbness/Burn Auditory Disturbances: 0-None Visual Disturbances: 0-None Headache: 0-None Present CIWA-Ar Total Score: 18 BHS COWS - Scale Resting Pulse: 0= [place] 80 or Below Sweatin=Flushed/Facial Moisture Restless Observation: 1= Difficult to Sit Still Pupil Size: 0= Normal to Room Light Bone or Joint Aches: 2= Severe Diffuse Aches Runny Nose/ Eye Tearin= None GI Upset > 30mins: 2= Nausea/Diarrhea Tremor Observation of Outstretched Hands: 2= Slight Tremor Visible Yawning Observation: 1= 1-2x During Session Anxiety or Irritability: 2=Irritable/Anxious Goose Flesh Skin: 3=Piloerection COWS Score: 15 BHS Progress Note (SOAP) Subjective: Nausea, Tremors, Anxious, Body Aches, Interrupted Sleep, Sweating. Patient reporting discomfort in Left foot since earlier this AM. Patient denies any history of recent injury to right foot. Objective: PATIENT A & O X 3, OBSERVED AMBULATING ON UNIT. NO ACUTE DISTRESS. SWELLING NOTED IN BILATERAL FEET. SMALL HEALING WOUND NOTED ON SOLE OF RIGHT FOOT, NEAR BASE OF TOES. SEVERAL PATCHES OF DRY SKIN NOTED ON BILATERAL FEET. 04/24/17 12:03 Vital Signs Temperature 96 F L 04/24/17 10:55 Pulse Rate 60 04/24/17 10:55 Respiratory Rate 18 04/24/17 10:55 Blood Pressure 101/61 04/24/17 10:55 O2 Sat by Pulse Oximetry (%) Laboratory Tests 04/23/17 04/23/17 04/23/17 12:10 12:15 16:00 WBC 4.5 D RBC 3.97 L Hgb 11.0 L D Hct 32.7 L D MCV 82.3 MCH 27.6 MCHC 33.5 RDW 16.0 H D Plt Count 155 D MPV 8.7 Sodium Potassium Chloride Carbon Dioxide Anion Gap BUN Creatinine Creat Clearance w eGFR POC Glucometer 108 Random Glucose Calcium Total Bilirubin AST ALT Alkaline Phosphatase Total Protein Albumin Urine Color Urine Appearance Urine pH Ur Specific [place] Urine Protein Urine Glucose (UA) Urine Ketones Urine Blood Urine Nitrite Urine Bilirubin Urine Urobilinogen Ur Leukocyte Esterase Urine WBC (Auto) Urine RBC (Auto) Urine Mucus RPR Titer HIV 1&2 Antibody Screen Negative HIV P24 Antigen Negative 04/23/17 04/23/17 04/23/17 16:00 16:00 16:00 WBC RBC Hgb Hct MCV MCH MCHC RDW Plt Count MPV Sodium 136 Potassium 3.9 Chloride 104 Carbon Dioxide 22 Anion Gap 10 BUN 18 D Creatinine 1.0 Creat Clearance w eGFR > 60 POC Glucometer Random Glucose 114 H Calcium 8.3 L Total Bilirubin 0.7 D AST 226 H D ALT 730 H D Alkaline Phosphatase 202 H D Total Protein 8.0 Albumin 3.2 L D Urine Color [place] Urine Appearance Cloudy Urine pH 5.0 Ur Specific [place] 1.025 Urine Protein 1+ H Urine Glucose (UA) Negative Urine Ketones Negative Urine Blood Negative Urine Nitrite Negative Urine Bilirubin Negative Urine Urobilinogen Negative Ur Leukocyte Esterase Negative Urine WBC (Auto) <1 Urine RBC (Auto) 1 Urine Mucus Rare RPR Titer Nonreactive HIV 1&2 Antibody Screen HIV P24 Antigen 04/23/17 04/23/17 04/24/17 16:22 21:00 05:57 WBC RBC Hgb Hct MCV MCH MCHC RDW Plt Count MPV Sodium Potassium Chloride Carbon Dioxide Anion Gap BUN Creatinine Creat Clearance w eGFR POC Glucometer 137 144 82 Random Glucose Calcium Total Bilirubin AST ALT Alkaline Phosphatase Total Protein Albumin Urine Color Urine Appearance Urine pH Ur Specific [place] Urine Protein Urine Glucose (UA) Urine Ketones Urine Blood Urine Nitrite Urine Bilirubin Urine Urobilinogen Ur Leukocyte Esterase Urine WBC (Auto) Urine RBC (Auto) Urine Mucus RPR Titer HIV 1&2 Antibody Screen HIV P24 Antigen LABS NOTED. 04/24/17 12:05 04/24/17 12:06 Assessment: 04/24/17 12:05 WITHDRAWAL SYMPTOMS. Plan: CONTINUE DETOX. BACITRACIN TO AFFECTED WOUND ON RIGHT FOOT BID. FOOT SOAK WITH WARM WATER AND BETADINE SOLUTION DAILY. PATIENT ALREADY ON CLINDAMYCIN FOR ABSCESS ON NECK AND LEFT ARM. NAPROXEN, 375 MG BID FOR FOT PAIN AND SWELLING. HEPATIC FUNCTION PANEL WITH PT/INR ON 04/25/2017 FOR ABNORMAL ADMISSION LIVER ENZYME VALUES. INCREASE DAILY PO FLUID INTAKE.
[2017-04-24] MEDS ORDERED: CEPHALEXIN MONOHYDRATE 500 MG CAPSULE (UD) PO SCH (14:00)
[2017-04-24] MEDS ORDERED: ACETAMINOPHEN 325 MG TABLET (FP) PO ONE (16:45)
[2017-04-24] MEDS: THIAMINE HCL 100 MG TABLET (FP) PO SCH (21:42)
[2017-04-24] MEDS: VITAMINS A AND D TOPICAL OINTMENT 60 GM TUBE TP SCH (23:22)
[2017-04-25] MEDS: CYCLOBENZAPRINE HCL 10 MG TABLET (FP) PO PRN ×2 (03:49→23:07)
[2017-04-25] MEDS: diazePAM 5 MG TABLET PO PRN ×2 (03:49→15:22)
[2017-04-25] MEDS: CLINDAMYCIN HCL 150 MG CAPSULE (FP) PO SCH ×3 (06:17→23:07)
[2017-04-25] MEDS: VITAMINS A AND D TOPICAL OINTMENT 60 GM TUBE TP SCH ×3 (06:17→18:30)
[2017-04-25] MEDS: INSULIN SLIDING SCALE (NOVOLOG) 1 VIAL SQ SCH ×4 (06:20→23:10)
[2017-04-25 10:37] LABS: INR 1.05 (0.82-1.09); PROTHROMBIN TIME (PATIENT) 11.9 SEC (9.98-11.88)
[2017-04-25 10:52] LABS: BILIRUBIN,DIRECT 0.2 mg/dL (0.0-0.2); BILIRUBIN,TOTAL 0.7 mg/dL (0.2-1.0); TOT PROT 7.4 g/dl (6.4-8.2)
[2017-04-25] MEDS: diazePAM 5 MG TABLET PO SCH ×2 (11:05→23:07)
[2017-04-25] MEDS: BACITRACIN 0.9 GM PACKET TP SCH ×2 (11:05→23:07)
[2017-04-25] MEDS: METHADONE HCL 5 MG TABLET (FOR DETOX USE ONLY) PO SCH (11:05)
[2017-04-25] MEDS: ENALAPRIL MALEATE 10 MG TABLET (FP) PO SCH (11:05)
[2017-04-25] MEDS: NAPROXEN 375 MG TABLET (FP) PO SCH ×2 (11:06→23:41)
[2017-04-25] MEDS: PRENATAL VITAMINS W/ FOLIC ACID TABLET (FP) PO SCH (11:14)
[2017-04-25] MEDS: NICOTINE 21 MG/24 HOURS TOPICAL PATCH TD SCH (11:15)
[2017-04-25] MEDS: POVIDONE-IODINE 10% SOLN 118 ML BOTTLE TP SCH (15:15)
--- NOTE | 2017-04-25 18:32 | PN ---
S CIWA - CIWA Score Nausea/Vomitin-No Nausea/No Vomiting Muscle Tremors: 3 Anxiety: 5 Agitation: 4-Moderately Restless Paroxysmal Sweats: 3 Orientation: 0-Oriented Tacttile Disturbances: 1-Very Mild Itch/Numbness Auditory Disturbances: 0-None Visual Disturbances: 0-None Headache: 0-None Present CIWA-Ar Total Score: 16 BHS COWS - Scale Resting Pulse: 0= [place] 80 or Below Sweatin= Chills/Flushing Restless Observation: 1= Difficult to Sit Still Pupil Size: 0= Normal to Room Light Bone or Joint Aches: 4=Acute Joint/Muscle Pain Runny Nose/ Eye Tearin= None GI Upset > 30mins: 0= None Tremor Observation of Outstretched Hands: 2= Slight Tremor Visible Yawning Observation: 1= 1-2x During Session Anxiety or Irritability: 4=Extreme Anxiety Goose Flesh Skin: 0=Smooth Skin COWS Score: 13 S Progress Note (SOAP) Subjective: Body Aches, Aches, Anxious, Interrupted Sleep, Sweating. Objective: PATIENT A & O X 3, OBSERVED AMBULATING ON UNIT. NO ACUTE DISTRESS. 04/25/17 18:30 Vital Signs Temperature 98.0 F 04/25/17 18:11 Pulse Rate 67 04/25/17 18:11 Respiratory Rate 19 04/25/17 18:11 Blood Pressure 102/55 04/25/17 18:11 O2 Sat by Pulse Oximetry (%) Laboratory Tests 04/23/17 04/23/17 04/23/17 12:10 12:15 16:00 WBC 4.5 D RBC 3.97 L Hgb 11.0 L D Hct 32.7 L D MCV 82.3 MCH 27.6 MCHC 33.5 RDW 16.0 H D Plt Count 155 D MPV 8.7 PT with INR INR Sodium Potassium Chloride Carbon Dioxide Anion Gap BUN Creatinine Creat Clearance w eGFR POC Glucometer 108 Random Glucose Calcium Total Bilirubin Direct Bilirubin AST ALT Alkaline Phosphatase Total Protein Albumin Urine Color Urine Appearance Urine pH Ur Specific [place] Urine Protein Urine Glucose (UA) Urine Ketones Urine Blood Urine Nitrite Urine Bilirubin Urine Urobilinogen Ur Leukocyte Esterase Urine WBC (Auto) Urine RBC (Auto) Urine Mucus RPR Titer HIV 1&2 Antibody Screen Negative HIV P24 Antigen Negative 04/23/17 04/23/17 04/23/17 16:00 16:00 16:00 WBC RBC Hgb Hct MCV MCH MCHC RDW Plt Count MPV PT with INR INR Sodium 136 Potassium 3.9 Chloride 104 Carbon Dioxide 22 Anion Gap 10 BUN 18 D Creatinine 1.0 Creat Clearance w eGFR > 60 POC Glucometer Random Glucose 114 H Calcium 8.3 L Total Bilirubin 0.7 D Direct Bilirubin AST 226 H D ALT 730 H D Alkaline Phosphatase 202 H D Total Protein 8.0 Albumin 3.2 L D Urine Color [place] Urine Appearance Cloudy Urine pH 5.0 Ur Specific [place] 1.025 Urine Protein 1+ H Urine Glucose (UA) Negative Urine Ketones Negative Urine Blood Negative Urine Nitrite Negative Urine Bilirubin Negative Urine Urobilinogen Negative Ur Leukocyte Esterase Negative Urine WBC (Auto) <1 Urine RBC (Auto) 1 Urine Mucus Rare RPR Titer Nonreactive HIV 1&2 Antibody Screen HIV P24 Antigen 04/23/17 04/23/17 04/24/17 16:22 21:00 05:57 WBC RBC Hgb Hct MCV MCH MCHC RDW Plt Count MPV PT with INR INR Sodium Potassium Chloride Carbon Dioxide Anion Gap BUN Creatinine Creat Clearance w eGFR POC Glucometer 137 144 82 Random Glucose Calcium Total Bilirubin Direct Bilirubin AST ALT Alkaline Phosphatase Total Protein Albumin Urine Color Urine Appearance Urine pH Ur Specific [place] Urine Protein Urine Glucose (UA) Urine Ketones Urine Blood Urine Nitrite Urine Bilirubin Urine Urobilinogen Ur Leukocyte Esterase Urine WBC (Auto) Urine RBC (Auto) Urine Mucus RPR Titer HIV 1&2 Antibody Screen HIV P24 Antigen 04/24/17 04/24/17 04/25/17 16:13 21:06 06:18 WBC RBC Hgb Hct MCV MCH MCHC RDW Plt Count MPV PT with INR INR Sodium Potassium Chloride Carbon Dioxide Anion Gap BUN Creatinine Creat Clearance w eGFR POC Glucometer 88 99 87 Random Glucose Calcium Total Bilirubin Direct Bilirubin AST ALT Alkaline Phosphatase Total Protein Albumin Urine Color Urine Appearance Urine pH Ur Specific [place] Urine Protein Urine Glucose (UA) Urine Ketones Urine Blood Urine Nitrite Urine Bilirubin Urine Urobilinogen Ur Leukocyte Esterase Urine WBC (Auto) Urine RBC (Auto) Urine Mucus RPR Titer HIV 1&2 Antibody Screen HIV P24 Antigen 04/25/17 04/25/17 04/25/17 08:00 08:00 11:43 WBC RBC Hgb Hct MCV MCH MCHC RDW Plt Count MPV PT with INR 11.90 H INR 1.05 Sodium Potassium Chloride Carbon Dioxide Anion Gap BUN Creatinine Creat Clearance w eGFR POC Glucometer 141 Random Glucose Calcium Total Bilirubin 0.7 Direct Bilirubin 0.2 AST 47 H D ALT 310 H D Alkaline Phosphatase 163 H Total Protein 7.4 Albumin 3.0 L Urine Color Urine Appearance Urine pH Ur Specific [place] Urine Protein Urine Glucose (UA) Urine Ketones Urine Blood Urine Nitrite Urine Bilirubin Urine Urobilinogen Ur Leukocyte Esterase Urine WBC (Auto) Urine RBC (Auto) Urine Mucus RPR Titer HIV 1&2 Antibody Screen HIV P24 Antigen 04/25/17 16:44 WBC RBC Hgb Hct MCV MCH MCHC RDW Plt Count MPV PT with INR INR Sodium Potassium Chloride Carbon Dioxide Anion Gap BUN Creatinine Creat Clearance w eGFR POC Glucometer 93 Random Glucose Calcium Total Bilirubin Direct Bilirubin AST ALT Alkaline Phosphatase Total Protein Albumin Urine Color Urine Appearance Urine pH Ur Specific [place] Urine Protein Urine Glucose (UA) Urine Ketones Urine Blood Urine Nitrite Urine Bilirubin Urine Urobilinogen Ur Leukocyte Esterase Urine WBC (Auto) Urine RBC (Auto) Urine Mucus RPR Titer HIV 1&2 Antibody Screen HIV P24 Antigen LABS NOTED. Assessment: 04/25/17 18:30 WITHDRAWAL SYMPTOMS. Plan: CONTINUE DETOX. INCREASE DAILY PO FLUID INTAKE.
--- NOTE | 2017-04-25 22:51 | PN ---
[facility] Progress Note Note: PT SEEN AT [facility] FOR C/O FEVER FOR SEVERAL DAY AND WANTS TO GO TO THE HOSPITAL. CLIENT C/O BODY ACHES, FEVER AND WANTS TO SIGN OUT AMA TO GO TO [facility]. DENIES SOB, C.P., DIZZINESS, COUGH OR SORE THROAT. VS 101.2 ORAL HR 76 R22 B/P 99/53 Vital Signs (72 hours) 04/23/17 04/23/17 04/23/17 11:20 15:58 18:01 Temperature 97 F L 98.3 F 97.8 F Pulse Rate 67 75 83 Respiratory 20 18 18 Rate Blood Pressure 121/69 108/66 117/72 04/23/17 04/24/17 04/24/17 22:13 01:06 06:37 Temperature 98.4 F 96.5 F L Pulse Rate 74 54 L Respiratory 18 18 18 Rate Blood Pressure 114/64 99/67 04/24/17 04/24/17 04/24/17 10:55 15:19 18:43 Temperature 96 F L 99.0 F 100.4 F H Pulse Rate 60 76 72 Respiratory 18 16 16 Rate Blood Pressure 101/61 110/69 114/68 04/24/17 04/25/17 04/25/17 22:34 00:30 06:57 Temperature 97.8 F 97.0 F L Pulse Rate 83 56 L Respiratory 18 17 18 Rate Blood Pressure 109/63 124/72 04/25/17 04/25/17 04/25/17 10:48 14:35 18:11 Temperature 97.3 F L 97.2 F L 98.0 F Pulse Rate 70 77 67 Respiratory 18 16 19 Rate Blood Pressure 113/65 116/72 102/55 Laboratory Last Values WBC 4.5 K/mm3 (4.0-10.0) D 04/23/17 16:00 RBC 3.97 M/mm3 (4.00-5.60) L 04/23/17 16:00 Hgb 11.0 GM/dL (11.7-16.9) L D 04/23/17 16:00 Hct 32.7 % (35.4-49) L D 04/23/17 16:00 MCV 82.3 fl (80-96) 04/23/17 16:00 MCH 27.6 pg (25.7-33.7) 04/23/17 16:00 MCHC 33.5 g/dl (32.0-35.9) 04/23/17 16:00 RDW 16.0 % (11.9-15.9) H D 04/23/17 16:00 Plt Count 155 K/MM3 (134-434) D 04/23/17 16:00 MPV 8.7 fl (7.5-11.1) 04/23/17 16:00 PT with INR 11.90 SEC (9.98-11.88) H 04/25/17 08:00 INR 1.05 (0.82-1.09) 04/25/17 08:00 Sodium 136 mmol/L (136-145) 04/23/17 16:00 Potassium 3.9 mmol/L (3.5-5.1) 04/23/17 16:00 Chloride 104 mmol/L (98-107) 04/23/17 16:00 Carbon Dioxide 22 mmol/L (21-32) 04/23/17 16:00 Anion Gap 10 (8-16) 04/23/17 16:00 BUN 18 mg/dL (7-18) D 04/23/17 16:00 Creatinine 1.0 mg/dL (0.7-1.3) 04/23/17 16:00 Creat Clearance w eGFR > 60 (>60) 04/23/17 16:00 POC Glucometer 81 UNITS (80-120) 04/25/17 21:39 Random Glucose 114 mg/dL (74-106) H 04/23/17 16:00 Calcium 8.3 mg/dL (8.5-10.1) L 04/23/17 16:00 Total Bilirubin 0.7 mg/dL (0.2-1.0) 04/25/17 08:00 Direct Bilirubin 0.2 mg/dL (0.0-0.2) 04/25/17 08:00 AST 47 U/L (15-37) H D 04/25/17 08:00 ALT 310 U/L (12-78) H D 04/25/17 08:00 Alkaline Phosphatase 163 U/L (45-117) H 04/25/17 08:00 Total Protein 7.4 g/dl (6.4-8.2) 04/25/17 08:00 Albumin 3.0 g/dl (3.4-5.0) L 04/25/17 08:00 Urine Color [place] 04/23/17 16:00 Urine Appearance Cloudy 04/23/17 16:00 Urine pH 5.0 (5.0-8.0) 04/23/17 16:00 Ur Specific [place] 1.025 (1.001-1.035) 04/23/17 16:00 Urine Protein 1+ (NEGATIVE) H 04/23/17 16:00 Urine Glucose (UA) Negative (NEGATIVE) 04/23/17 16:00 Urine Ketones Negative (NEGATIVE) 04/23/17 16:00 Urine Blood Negative (NEGATIVE) 04/23/17 16:00 Urine Nitrite Negative (NEGATIVE) 04/23/17 16:00 Urine Bilirubin Negative (NEGATIVE) 04/23/17 16:00 Urine Urobilinogen Negative mg/dL (0.2-1.0) 04/23/17 16:00 Ur Leukocyte Esterase Negative (NEGATIVE) 04/23/17 16:00 Urine WBC (Auto) <1 /hpf (3-5) 04/23/17 16:00 Urine RBC (Auto) 1 /hpf (0-3) 04/23/17 16:00 Urine Mucus Rare 04/23/17 16:00 RPR Titer Nonreactive (NONREACTIVE) 04/23/17 16:00 HIV 1&2 Antibody Screen Negative 04/23/17 12:15 HIV P24 Antigen Negative 04/23/17 12:15 LYING IN BED AWAKE ALERT MILD DISTRESS' SKIN HOT TO TOUCH, MOIST, FLUSHED, R WRIST WITH WHAT LOOKS LIKE A RESOLVING ABCESS FROM IVDA R FOOT WITH OPEN WOUND ON PLANTAR SIDE NO INFLAMMATION NOTED NECK- TRACK MUNOZ FROM IVDA NO REDNESS OR TENDERNESS CV RRR LUNGS CTAB ABD ACTIVE COLOSTOMY A- 41 Y.O. IVDA WITH DM NOW WITH FEVER X 48 HOURS, R/O DM WOUND INFECTION, R/O ENDOCARDITIS, SEPSIS P- WILL TRANSFER CLIENT TO [facility] FOR EVAL PLAN D/W CLIENT WHO NOW IS REFUSING TRANSFER FOR EVAL. HE NOW WANTS TO CONTINUE TYLENOL/ MOTRIN AND STATES WILL SIGN OUT AMA IN MORNING IF HE IS NOT FEELING BETTER. CLIENT INFORMED OF THE RISK DELAYING EMERGENCY EVAL/TXMENT TO INCLUDE . CLIENT VERBALIZED UNDERSTANDING . REFUSAL OF TXMENT SIGNED. CONT MOTRIN/ TYLENOL MONITOR VS Q 6 HOURS PITCHER FOR PO HYDRATION C/W ABT TXMENT
[2017-04-25] MEDS: THIAMINE HCL 100 MG TABLET (FP) PO SCH (23:09)
[2017-04-25] MEDS: IBUPROFEN 600 MG TABLET (FP) PO SCH (23:10)
[2017-04-26] MEDS: VITAMINS A AND D TOPICAL OINTMENT 60 GM TUBE TP SCH ×4 (00:27→20:20)
[2017-04-26] MEDS: CLINDAMYCIN HCL 150 MG CAPSULE (FP) PO SCH ×3 (06:50→22:33)
[2017-04-26] MEDS: IBUPROFEN 600 MG TABLET (FP) PO SCH ×3 (06:51→23:12)
[2017-04-26] MEDS: diazePAM 5 MG TABLET PO PRN ×2 (06:52→13:07)
[2017-04-26] MEDS: INSULIN SLIDING SCALE (NOVOLOG) 1 VIAL SQ SCH ×4 (07:32→23:06)
[2017-04-26] MEDS: BACITRACIN 0.9 GM PACKET TP SCH ×2 (10:42→22:33)
[2017-04-26] MEDS: NICOTINE 21 MG/24 HOURS TOPICAL PATCH TD SCH (10:42)
[2017-04-26] MEDS: METHADONE HCL 5 MG TABLET (FOR DETOX USE ONLY) PO SCH (10:42)
[2017-04-26] MEDS: PRENATAL VITAMINS W/ FOLIC ACID TABLET (FP) PO SCH (10:42)
[2017-04-26] MEDS: ENALAPRIL MALEATE 10 MG TABLET (FP) PO SCH (10:43)
[2017-04-26] MEDS: diazePAM 5 MG TABLET PO SCH ×2 (10:43→22:33)
[2017-04-26] MEDS: POVIDONE-IODINE 10% SOLN 118 ML BOTTLE TP SCH (10:43)
--- NOTE | 2017-04-26 17:22 | PN ---
[facility] Progress Note (SOAP) Subjective: Agitated, irritable, nausea, sweating; patient stated that he's planning to leave [place] and go to [facility] because it is closer to his family. Patient told staff he had toothache and was in the shower so he pulled out the tooth and green stuff came out of it. Patient is already on PO antibiotic. Patient encouraged to stay and complete his treatment. Patient was seen yesterday by medical provider regarding fever but he refused to go to the ER. Objective: 04/26/17 17:20 Last Vital Signs Temp Pulse Resp BP Pulse Ox 98 F 68 20 109/62 04/26/17 14:28 04/26/17 14:28 04/26/17 14:28 04/26/17 14:28 Laboratory Tests 04/23/17 04/23/17 04/23/17 12:10 12:15 16:00 WBC 4.5 D RBC 3.97 L Hgb 11.0 L D Hct 32.7 L D MCV 82.3 MCH 27.6 MCHC 33.5 RDW 16.0 H D Plt Count 155 D MPV 8.7 PT with INR INR Sodium Potassium Chloride Carbon Dioxide Anion Gap BUN Creatinine Creat Clearance w eGFR POC Glucometer 108 Random Glucose Calcium Total Bilirubin Direct Bilirubin AST ALT Alkaline Phosphatase Total Protein Albumin Urine Color Urine Appearance Urine pH Ur Specific [place] Urine Protein Urine Glucose (UA) Urine Ketones Urine Blood Urine Nitrite Urine Bilirubin Urine Urobilinogen Ur Leukocyte Esterase Urine WBC (Auto) Urine RBC (Auto) Urine Mucus RPR Titer HIV 1&2 Antibody Screen Negative HIV P24 Antigen Negative 04/23/17 04/23/17 04/23/17 16:00 16:00 16:00 WBC RBC Hgb Hct MCV MCH MCHC RDW Plt Count MPV PT with INR INR Sodium 136 Potassium 3.9 Chloride 104 Carbon Dioxide 22 Anion Gap 10 BUN 18 D Creatinine 1.0 Creat Clearance w eGFR > 60 POC Glucometer Random Glucose 114 H Calcium 8.3 L Total Bilirubin 0.7 D Direct Bilirubin AST 226 H D ALT 730 H D Alkaline Phosphatase 202 H D Total Protein 8.0 Albumin 3.2 L D Urine Color [place] Urine Appearance Cloudy Urine pH 5.0 Ur Specific [place] 1.025 Urine Protein 1+ H Urine Glucose (UA) Negative Urine Ketones Negative Urine Blood Negative Urine Nitrite Negative Urine Bilirubin Negative Urine Urobilinogen Negative Ur Leukocyte Esterase Negative Urine WBC (Auto) <1 Urine RBC (Auto) 1 Urine Mucus Rare RPR Titer Nonreactive HIV 1&2 Antibody Screen HIV P24 Antigen 04/23/17 04/23/17 04/24/17 16:22 21:00 05:57 WBC RBC Hgb Hct MCV MCH MCHC RDW Plt Count MPV PT with INR INR Sodium Potassium Chloride Carbon Dioxide Anion Gap BUN Creatinine Creat Clearance w eGFR POC Glucometer 137 144 82 Random Glucose Calcium Total Bilirubin Direct Bilirubin AST ALT Alkaline Phosphatase Total Protein Albumin Urine Color Urine Appearance Urine pH Ur Specific [place] Urine Protein Urine Glucose (UA) Urine Ketones Urine Blood Urine Nitrite Urine Bilirubin Urine Urobilinogen Ur Leukocyte Esterase Urine WBC (Auto) Urine RBC (Auto) Urine Mucus RPR Titer HIV 1&2 Antibody Screen HIV P24 Antigen 04/24/17 04/24/17 04/25/17 16:13 21:06 06:18 WBC RBC Hgb Hct MCV MCH MCHC RDW Plt Count MPV PT with INR INR Sodium Potassium Chloride Carbon Dioxide Anion Gap BUN Creatinine Creat Clearance w eGFR POC Glucometer 88 99 87 Random Glucose Calcium Total Bilirubin Direct Bilirubin AST ALT Alkaline Phosphatase Total Protein Albumin Urine Color Urine Appearance Urine pH Ur Specific [place] Urine Protein Urine Glucose (UA) Urine Ketones Urine Blood Urine Nitrite Urine Bilirubin Urine Urobilinogen Ur Leukocyte Esterase Urine WBC (Auto) Urine RBC (Auto) Urine Mucus RPR Titer HIV 1&2 Antibody Screen HIV P24 Antigen 04/25/17 04/25/17 04/25/17 08:00 08:00 11:43 WBC RBC Hgb Hct MCV MCH MCHC RDW Plt Count MPV PT with INR 11.90 H INR 1.05 Sodium Potassium Chloride Carbon Dioxide Anion Gap BUN Creatinine Creat Clearance w eGFR POC Glucometer 141 Random Glucose Calcium Total Bilirubin 0.7 Direct Bilirubin 0.2 AST 47 H D ALT 310 H D Alkaline Phosphatase 163 H Total Protein 7.4 Albumin 3.0 L Urine Color Urine Appearance Urine pH Ur Specific [place] Urine Protein Urine Glucose (UA) Urine Ketones Urine Blood Urine Nitrite Urine Bilirubin Urine Urobilinogen Ur Leukocyte Esterase Urine WBC (Auto) Urine RBC (Auto) Urine Mucus RPR Titer HIV 1&2 Antibody Screen HIV P24 Antigen 04/25/17 04/25/17 04/26/17 16:44 21:39 07:24 WBC RBC Hgb Hct MCV MCH MCHC RDW Plt Count MPV PT with INR INR Sodium Potassium Chloride Carbon Dioxide Anion Gap BUN Creatinine Creat Clearance w eGFR POC Glucometer 93 81 104 Random Glucose Calcium Total Bilirubin Direct Bilirubin AST ALT Alkaline Phosphatase Total Protein Albumin Urine Color Urine Appearance Urine pH Ur Specific [place] Urine Protein Urine Glucose (UA) Urine Ketones Urine Blood Urine Nitrite Urine Bilirubin Urine Urobilinogen Ur Leukocyte Esterase Urine WBC (Auto) Urine RBC (Auto) Urine Mucus RPR Titer HIV 1&2 Antibody Screen HIV P24 Antigen 04/26/17 04/26/17 10:45 16:56 WBC RBC Hgb Hct MCV MCH MCHC RDW Plt Count MPV PT with INR INR Sodium Potassium Chloride Carbon Dioxide Anion Gap BUN Creatinine Creat Clearance w eGFR POC Glucometer 118 99 Random Glucose Calcium Total Bilirubin Direct Bilirubin AST ALT Alkaline Phosphatase Total Protein Albumin Urine Color Urine Appearance Urine pH Ur Specific [place] Urine Protein Urine Glucose (UA) Urine Ketones Urine Blood Urine Nitrite Urine Bilirubin Urine Urobilinogen Ur Leukocyte Esterase Urine WBC (Auto) Urine RBC (Auto) Urine Mucus RPR Titer HIV 1&2 Antibody Screen HIV P24 Antigen Labs noted Assessment: 04/26/17 17:21 Withdrawal symptoms Plan: Continue detox Encouraged PO fluid (water) for hydration
[2017-04-26] MEDS: CYCLOBENZAPRINE HCL 10 MG TABLET (FP) PO PRN (22:34)
[2017-04-26] MEDS: THIAMINE HCL 100 MG TABLET (FP) PO SCH (23:06)
[2017-04-27] MEDS: VITAMINS A AND D TOPICAL OINTMENT 60 GM TUBE TP SCH ×2 (00:30→06:58)
[2017-04-27] MEDS: CYCLOBENZAPRINE HCL 10 MG TABLET (FP) PO PRN (05:24)
[2017-04-27] MEDS: CLINDAMYCIN HCL 150 MG CAPSULE (FP) PO SCH (05:24)
[2017-04-27 06:50] VITALS: BP 121/69; PULSE 65; TEMP 96.1
[2017-04-27] MEDS: IBUPROFEN 600 MG TABLET (FP) PO SCH (06:55)
[2017-04-27] MEDS: INSULIN SLIDING SCALE (NOVOLOG) 1 VIAL SQ SCH (06:57)
[2017-04-27] MEDS ORDERED: diazePAM 5 MG TABLET PO SCH (10:00)
[2017-04-27] MEDS ORDERED: METHADONE HCL 10 MG TABLET (FOR DETOX USE ONLY) PO SCH (10:00)
--- NOTE | 2017-04-27 10:26 | PN ---
[facility] Progress Note (SOAP) Subjective: PT DECLINED TO CONTINUE WITH DETOX STATING HE IS NOT ABLE TO MAKE A CALL TO P.R. PT WAS ENCOURAGED TO FOLLOW UP WITH COUNSELOR FOR SOLUTIONS BUT DECLINED.ALERT O X 3. PT UNABLE TO FURNISH INFORMATION ABOUT HIS PRIMARY CARE UPON LEAVING HERE AND STATED "MY FATHER IS A DOCTOR AND HE SENTS MY MEDICATION FROM [facility]". ALERT O X 3. NAD. Objective: 04/27/17 10:25 Vital Signs Temperature 96.1 F L 04/27/17 06:49 Pulse Rate 65 04/27/17 06:49 Respiratory Rate 18 04/27/17 06:49 Blood Pressure 121/69 04/27/17 06:49 O2 Sat by Pulse Oximetry (%) Laboratory Last Values WBC 4.5 K/mm3 (4.0-10.0) D 04/23/17 16:00 RBC 3.97 M/mm3 (4.00-5.60) L 04/23/17 16:00 Hgb 11.0 GM/dL (11.7-16.9) L D 04/23/17 16:00 Hct 32.7 % (35.4-49) L D 04/23/17 16:00 MCV 82.3 fl (80-96) 04/23/17 16:00 MCH 27.6 pg (25.7-33.7) 04/23/17 16:00 MCHC 33.5 g/dl (32.0-35.9) 04/23/17 16:00 RDW 16.0 % (11.9-15.9) H D 04/23/17 16:00 Plt Count 155 K/MM3 (134-434) D 04/23/17 16:00 MPV 8.7 fl (7.5-11.1) 04/23/17 16:00 PT with INR 11.90 SEC (9.98-11.88) H 04/25/17 08:00 INR 1.05 (0.82-1.09) 04/25/17 08:00 Sodium 136 mmol/L (136-145) 04/23/17 16:00 Potassium 3.9 mmol/L (3.5-5.1) 04/23/17 16:00 Chloride 104 mmol/L (98-107) 04/23/17 16:00 Carbon Dioxide 22 mmol/L (21-32) 04/23/17 16:00 Anion Gap 10 (8-16) 04/23/17 16:00 BUN 18 mg/dL (7-18) D 04/23/17 16:00 Creatinine 1.0 mg/dL (0.7-1.3) 04/23/17 16:00 Creat Clearance w eGFR > 60 (>60) 04/23/17 16:00 POC Glucometer 82 UNITS (80-120) 04/27/17 05:28 Random Glucose 114 mg/dL (74-106) H 04/23/17 16:00 Calcium 8.3 mg/dL (8.5-10.1) L 04/23/17 16:00 Total Bilirubin 0.7 mg/dL (0.2-1.0) 04/25/17 08:00 Direct Bilirubin 0.2 mg/dL (0.0-0.2) 04/25/17 08:00 AST 47 U/L (15-37) H D 04/25/17 08:00 ALT 310 U/L (12-78) H D 04/25/17 08:00 Alkaline Phosphatase 163 U/L (45-117) H 04/25/17 08:00 Total Protein 7.4 g/dl (6.4-8.2) 04/25/17 08:00 Albumin 3.0 g/dl (3.4-5.0) L 04/25/17 08:00 Urine Color [place] 04/23/17 16:00 Urine Appearance Cloudy 04/23/17 16:00 Urine pH 5.0 (5.0-8.0) 04/23/17 16:00 Ur Specific [place] 1.025 (1.001-1.035) 04/23/17 16:00 Urine Protein 1+ (NEGATIVE) H 04/23/17 16:00 Urine Glucose (UA) Negative (NEGATIVE) 04/23/17 16:00 Urine Ketones Negative (NEGATIVE) 04/23/17 16:00 Urine Blood Negative (NEGATIVE) 04/23/17 16:00 Urine Nitrite Negative (NEGATIVE) 04/23/17 16:00 Urine Bilirubin Negative (NEGATIVE) 04/23/17 16:00 Urine Urobilinogen Negative mg/dL (0.2-1.0) 04/23/17 16:00 Ur Leukocyte Esterase Negative (NEGATIVE) 04/23/17 16:00 Urine WBC (Auto) <1 /hpf (3-5) 04/23/17 16:00 Urine RBC (Auto) 1 /hpf (0-3) 04/23/17 16:00 Urine Mucus Rare 04/23/17 16:00 RPR Titer Nonreactive (NONREACTIVE) 04/23/17 16:00 HIV 1&2 Antibody Screen Negative 04/23/17 12:15 HIV P24 Antigen Negative 04/23/17 12:15 Assessment: 04/27/17 10:26 NAD Plan: PT SIGNED OUT AMA
--- NOTE | 2017-04-27 10:38 | DS ---
[facility] Detox Discharge Summary Admission Date: 04/23/17 Discharge Date: 04/27/17 - History Present History: Cocaine Dependence, Opioid Dependence, Sedative Dependence Additional Comments: PT DECLINED TO COMPLETE DETOX. SIGNED OUT AMA. ALERT O X 3. NAD. UNABLE TO FURNISH INFORMATION ABOUT HIS PRIMARY CARE PT REPORTS HE HAS OWN MEDS. Pertinent Past History: SEE DX NAD. - Physical Exam Results Vital Signs: Vital Signs Temperature 96.1 F L 04/27/17 06:49 Pulse Rate 65 04/27/17 06:49 Respiratory Rate 18 04/27/17 06:49 Blood Pressure 121/69 04/27/17 06:49 O2 Sat by Pulse Oximetry (%) Pertinent Admission Physical Exam Findings: WITHDRAWAL SX Laboratory Last Values WBC 4.5 K/mm3 (4.0-10.0) D 04/23/17 16:00 RBC 3.97 M/mm3 (4.00-5.60) L 04/23/17 16:00 Hgb 11.0 GM/dL (11.7-16.9) L D 04/23/17 16:00 Hct 32.7 % (35.4-49) L D 04/23/17 16:00 MCV 82.3 fl (80-96) 04/23/17 16:00 MCH 27.6 pg (25.7-33.7) 04/23/17 16:00 MCHC 33.5 g/dl (32.0-35.9) 04/23/17 16:00 RDW 16.0 % (11.9-15.9) H D 04/23/17 16:00 Plt Count 155 K/MM3 (134-434) D 04/23/17 16:00 MPV 8.7 fl (7.5-11.1) 04/23/17 16:00 PT with INR 11.90 SEC (9.98-11.88) H 04/25/17 08:00 INR 1.05 (0.82-1.09) 04/25/17 08:00 Sodium 136 mmol/L (136-145) 04/23/17 16:00 Potassium 3.9 mmol/L (3.5-5.1) 04/23/17 16:00 Chloride 104 mmol/L (98-107) 04/23/17 16:00 Carbon Dioxide 22 mmol/L (21-32) 04/23/17 16:00 Anion Gap 10 (8-16) 04/23/17 16:00 BUN 18 mg/dL (7-18) D 04/23/17 16:00 Creatinine 1.0 mg/dL (0.7-1.3) 04/23/17 16:00 Creat Clearance w eGFR > 60 (>60) 04/23/17 16:00 POC Glucometer 82 UNITS (80-120) 04/27/17 05:28 Random Glucose 114 mg/dL (74-106) H 04/23/17 16:00 Calcium 8.3 mg/dL (8.5-10.1) L 04/23/17 16:00 Total Bilirubin 0.7 mg/dL (0.2-1.0) 04/25/17 08:00 Direct Bilirubin 0.2 mg/dL (0.0-0.2) 04/25/17 08:00 AST 47 U/L (15-37) H D 04/25/17 08:00 ALT 310 U/L (12-78) H D 04/25/17 08:00 Alkaline Phosphatase 163 U/L (45-117) H 04/25/17 08:00 Total Protein 7.4 g/dl (6.4-8.2) 04/25/17 08:00 Albumin 3.0 g/dl (3.4-5.0) L 04/25/17 08:00 Urine Color [place] 04/23/17 16:00 Urine Appearance Cloudy 04/23/17 16:00 Urine pH 5.0 (5.0-8.0) 04/23/17 16:00 Ur Specific [place] 1.025 (1.001-1.035) 04/23/17 16:00 Urine Protein 1+ (NEGATIVE) H 04/23/17 16:00 Urine Glucose (UA) Negative (NEGATIVE) 04/23/17 16:00 Urine Ketones Negative (NEGATIVE) 04/23/17 16:00 Urine Blood Negative (NEGATIVE) 04/23/17 16:00 Urine Nitrite Negative (NEGATIVE) 04/23/17 16:00 Urine Bilirubin Negative (NEGATIVE) 04/23/17 16:00 Urine Urobilinogen Negative mg/dL (0.2-1.0) 04/23/17 16:00 Ur Leukocyte Esterase Negative (NEGATIVE) 04/23/17 16:00 Urine WBC (Auto) <1 /hpf (3-5) 04/23/17 16:00 Urine RBC (Auto) 1 /hpf (0-3) 04/23/17 16:00 Urine Mucus Rare 04/23/17 16:00 RPR Titer Nonreactive (NONREACTIVE) 04/23/17 16:00 HIV 1&2 Antibody Screen Negative 04/23/17 12:15 HIV P24 Antigen Negative 04/23/17 12:15 - Treatment Hospital Course: Discharged Condition Good - Medication Discharge Medications: Ambulatory Orders Insulin Regular [NOVOLIN R VIAL *IVPUSH / ER / ICU Only*] 0 units SQ BIDAC PRN 01/01/17 Buspirone HCl [Buspar -] 10 mg PO BID #30 tablet 01/02/17 Enalapril Maleate [Vasotec -] 10 mg PO DAILY #30 tablet 01/05/17 - Diagnosis (1) Opioid dependence with withdrawal Status: Acute (2) Sedative, hypnotic or anxiolytic dependence with withdrawal, uncomplicated Status: Acute (3) Cocaine dependence, uncomplicated Status: Acute (4) Diabetes mellitus type II, controlled Status: Chronic Qualifiers: Diabetes mellitus penitentiary insulin use: with penitentiary use Diabetes mellitus complication status: without complication Qualified Code(s): E11.9 - Type 2 diabetes mellitus without complications; Z79.4 - senior living (current) use of insulin; Z79.4 - senior living (current) use of insulin; 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; Z79.4 - senior living (current) use of insulin (5) Hepatitis C Status: Chronic Qualifiers: Viral hepatitis chronicity: chronic Hepatic coma status: without hepatic coma Qualified Code(s): B18.2 - Chronic viral hepatitis C (6) Hypertension Status: Chronic Qualifiers: Hypertension type: essential hypertension Qualified Code(s): I10 - Essential (primary) hypertension (7) Nicotine dependence Status: Acute Qualifiers: Nicotine product type: cigarettes Substance use status: in withdrawal Qualified Code(s): F17.213 - Nicotine dependence, cigarettes, with withdrawal (8) History of appendectomy Status: Resolved - AMA Did Patient Leave Against Medical Advice: Yes (AMA)
[2017-04-28] MEDS ORDERED: METHADONE HCL 5 MG TABLET (FOR DETOX USE ONLY) PO SCH (06:00)
== END 2017-04-27 10:21 | disposition left against medical advice (07) | DRG 770 ==
LOC: YASAS 09:12 → Y3N 12:21
PROVIDERS: ADMIT Internal Medicine; ATTEND Internal Medicine
PROC: HZ2ZZZZ Detoxification Services for Substance Abuse Treatment (ICD-10-PCS; principal; 2017-04-23)
DX: F11.23 Opioid dependence with withdrawal (principal); F13.230 Sedative, hypnotic or anxiolytic dependence with withdrawal, uncomplicated; F14.20 Cocaine dependence, uncomplicated; F17.213 Nicotine dependence, cigarettes, with withdrawal; F32.9 Major depressive disorder, single episode, unspecified; F19.24 Other psychoactive substance dependence with psychoactive substance-induced mood disorder; F19.282 Other psychoactive substance dependence with psychoactive substance-induced sleep disorder; I10 Essential (primary) hypertension; E10.9 Type 1 diabetes mellitus without complications; B18.2 Chronic viral hepatitis C; L02.413 Cutaneous abscess of right upper limb; R50.9 Fever, unspecified; D50.9 Iron deficiency anemia, unspecified; S91.301D Unspecified open wound, right foot, subsequent encounter; X58.XXXD Exposure to other specified factors, subsequent encounter; Z93.3 Colostomy status; Z98.890 Other specified postprocedural states; Z90.89 Acquired absence of other organs; Z91.5 Personal history of self-harm
CPT/HCPCS: 36415; 80053; 80076; 81003; 81015; 82962; 85027; 85610; 86593; 87389; 93005; 93010

== ENCOUNTER 2017-06-28 14:45 | Inpatient (IN) | payer OTHER ==
[2017-06-28 15:11] VITALS: BMI 24.5
--- NOTE | 2017-06-28 15:36 | HP ---
COWS - Scale Resting Pulse: 0= [place] 80 or Below Sweatin=Flushed/Facial Moisture Restless Observation: 3= Extraneous Movement Pupil Size: 1= Pupils >than Normal Bone or Joint Aches: 2= Severe Diffuse Aches Runny Nose/ Eye Tearin= Runny Nose/Eyes GI Upset > 30mins: 3= Vomiting/Diarrhea Tremor Observation: 2= Slight Tremor Visible Yawning Observation: 2= >3x During Session Anxiety or Irritability: 2=Irritable/Anxious Goose Flesh Skin: 0=Smooth Skin COWS Score: 19 CIWA Score - CIWA Score Nausea/Vomitin Muscle Tremors: 3 Anxiety: 3 Agitation: 3 Paroxysmal Sweats: 1-Minimal Palms Moist Orientation: 0-Oriented Tacttile Disturbances: 2-Mild Itch/Numbness/Burn Auditory Disturbances: 2-Mild Harshness/Frighten Visual Disturbances: 1-Very Mild Sensitivity Headache: 2-Mild CIWA-Ar Total Score: 20 Admission ROS BHS - HPI Chief Complaint: i need help to stop using heroin,cocaine,xanax Allergies/Adverse Reactions: Allergies Allergy/AdvReac Type Severity Reaction Status Date / Time No Known Allergies Allergy Verified 06/28/17 15:25 History of Present Illness: this 42 years old male with heroin,cocaine and xanax dependence,seeking detox, withdrawal symptom,last detox [facility] -04/23/17 to 04/27/17 history of hypertension, colostomy s/p perforated appendicitis in 2014,follow up at [facility] anxiety,depression longest period of sobriety 15 years nicotine dependence weight loss Exam Limitations: No Limitations - Ebola screening Have you traveled outside of the country in the last 21 days: No (N) Have you had contact with anyone from an Ebola affected area: No Have you been sick,other than usual withdrawal symptoms: No Do you have a fever: No - Review of Systems Constitutional: Chills, Loss of Appetite, Malaise, Night Sweats, Changes in sleep, Weakness, Unintentional Wgt. Loss EENT: reports: Tearing, Nose Congestion Respiratory: reports: No Symptoms reported Cardiac: reports: No Symptoms Reported GI: reports: Diarrhea, Nausea, Vomiting, Abdominal cramping : reports: No Symptoms Reported Musculoskeletal: reports: Joint Pain, Muscle Pain, Joint Stiffness Integumentary: reports: Dryness Neuro: reports: Headache, Tremors Endocrine: reports: No Symptoms Reported Hematology: reports: No Symptoms Reported Psychiatric: reports: No Sypmtoms Reported, Mood/Affect Appropiate, Anxious, Depressed Other Systems: Reviewed and Negative Patient History - Patient Medical History Hx Anemia: Yes (Iron-deficiency tpye. No current meds.) Hx Asthma: No Hx Chronic Obstructive Pulmonary Disease (COPD): No Hx Cancer: No Hx Cardiac Disorders: No Hx Congestive Heart Failure: No Hx Hypertension: Yes (On med.) Hx Hypercholesterolemia: No Hx Pacemaker: No HX Cerebrovascular Accident: No Hx Seizures: No Hx Dementia: No Hx Diabetes: No Hx Gastrointestinal Disorders: No Hx Liver Disease: No Hx Genitourinary Disorders: No Hx Sexually Transmitted Disorders: No Hx Renal Disease (ESRD): No Hx Thyroid Disease: No Hx Human Immunodeficiency Virus (HIV): No (Last tested: approx. 3 months ago: NEGATIVE.) Hx Hepatitis C: Yes (Diagnosed in 2013.) Hx Depression: Yes (Meds. in past; none currently.) Hx Suicide Attempt: Yes (pill overdose at age 21; PATIENT DENIES CURRENT SI / HI.) Hx Bipolar Disorder: No Hx Schizophrenia: No Other Medical History: no suicidal,no homicidal - Patient Surgical History Past Surgical History: Yes Hx Neurologic Surgery: No Hx Cataract Extraction: No Hx Cardiac Surgery: No Hx Lung Surgery: No Hx Breast Surgery: No Hx Breast Biopsy: No Hx Abdominal Surgery: Yes (colostomy bag in place since 2013 (6 surgeries)) Hx Appendectomy: Yes (in 2013) Hx Cholecystectomy: No Hx Genitourinary Surgery: No Hx Section: No Hx Orthopedic Surgery: No Other Surgical History: DENIES. Anesthesia Reaction: No - PPD History Previous Implant?: Yes Documented Results: Negative w/o proof Implanted On Prior [facility] Admission?: Yes Date: 01/03/17 Results: 0 mm PPD to be Administered?: No - Smoking Cessation Smoking history: Current every day smoker Have you smoked in the past 12 months: Yes Aproximately how many cigarettes per day: 20 Cigars Per Day: 1 (Occasional.) Hx Chewing Tobacco Use: Yes (1 Time / Week.) Initiated information on smoking cessation: Yes 'Breaking Loose' booklet given: 06/28/17 - Substance & Tx. History Hx Alcohol Use: No Hx Substance Use: Yes Substance Use Type: Cocaine, Heroin, Tranquilizers Hx Substance Use Treatment: Yes ([facility] 04/23/17 to 04/27/17) - Substances Abused Heroin Route: Injection Frequency: Daily Amount used: 20-25 BAGS DAILY Age of first use: 41 Date of Last Use: 06/27/17 Cocaine Route: Injection Frequency: Daily Amount used: 15-20 BAGS DAILY ($150) Age of first use: 27 Date of Last Use: 06/27/17 Alprazolam (Xanax) Route: Oral Frequency: Daily Amount used: 6 MG DAILY Age of first use: 18 Date of Last Use: 06/25/17 Family Disease History - Family Disease History Family Disease History: Diabetes: Father, Mother, Heart Disease: Father, Mother , Other: Grandparent (Alzheimer's Disease.) Admission Physical Exam S - Vital Signs Vital Signs: Vital Signs - 24 hr 06/28/17 15:09 Temperature 99.1 F Pulse Rate 76 Respiratory 17 Rate Blood Pressure 118/58 - Physical General Appearance: Yes: Moderate Distress, Tremorous, Irritable, Sweating, Anxious HEENTM: Yes: Normal ENT Inspection, RICARDO, Pharynx Normal Respiratory: Yes: Lungs Clear, Normal Breath Sounds, No Respiratory Distress Neck: Yes: Within Normal Limits, Supple, Trachea in good position Breast: Yes: Within Normal Limits Cardiology: Yes: Within Normal Limits, Regular Rhythm, Regular Rate, S1, S2 Abdominal: Yes: Normal Bowel Sounds, Non Tender, Soft, Other (colostomy left) Genitourinary: Yes: Within Normal Limits Back: Yes: Normal Inspection, Decreased Range of Motion, Muscle Spasm Musculoskeletal: Yes: full range of Motion, Back pain, Muscle Pain Extremities: Yes: Within Normal Limits, Normal Range of Motion, Tremors Neurological: Yes: alcohol law enforcement agent II-XII NML intact, Alert, Motor Strength 5/5 Integumentary: Yes: Dry, Track Santacruz Lymphatic: Yes: Within Normal Limits - Diagnostic (1) Opioid dependence with withdrawal Current Visit: No Status: Acute (2) Cocaine dependence, uncomplicated Current Visit: No Status: Acute (3) Insomnia Current Visit: No Status: Acute (4) Nicotine dependence Current Visit: No Status: Acute Qualifiers: Nicotine product type: cigarettes Substance use status: in withdrawal Qualified Code(s): F17.213 - Nicotine dependence, cigarettes, with withdrawal (5) Sedative, hypnotic or anxiolytic dependence with withdrawal, uncomplicated Current Visit: No Status: Acute (6) Colostomy in place Current Visit: No Status: Chronic (7) Diabetes mellitus type II, controlled Current Visit: No Status: Chronic Qualifiers: Diabetes mellitus termite exterminator helper insulin use: with termite exterminator helper use Diabetes mellitus complication status: without complication Qualified Code(s): E11.9 - Type 2 diabetes mellitus without complications; Z79.4 - [facility] (current) use of insulin; Z79.4 - intermediate school teacher (current) use of insulin; Z79.4 - intermediate school teacher ( current) use of insulin; Z79.4 - [facility] (current) use of insulin (8) Hepatitis C Current Visit: No Status: Chronic Qualifiers: Viral hepatitis chronicity: chronic Hepatic coma status: without hepatic coma Qualified Code(s): B18.2 - Chronic viral hepatitis C (9) Hypertension Current Visit: No Status: Chronic Qualifiers: Hypertension type: essential hypertension Qualified Code(s): I10 - Essential (primary) hypertension (10) History of abdominal surgery Current Visit: No Status: Resolved (11) History of appendectomy Current Visit: No Status: Resolved (12) Intravenous drug user Current Visit: Yes Status: Acute (13) S/P colostomy Current Visit: Yes Status: Acute Cleared for Admission S - Detox or Rehab [facility] Level of Care: Medically Managed Detox Regimen/Protocol: Methadone/Valium S Breath Alcohol Content Breath Alcohol Content: 0 Urine Drug Screen - Results Drug Screen Negative: No Urine Drug Screen Results: EUNICE-Cocaine, OPI-Opiates, BZO-Benzodiazepines, MTD- Methadone
[2017-06-28] MEDS ORDERED: MENTHOL/PHENOL 1 EACH UD MM PRN (16:27)
[2017-06-28] MEDS ORDERED: ACETAMINOPHEN 325 MG TABLET (FP) PO PRN (16:27)
[2017-06-28] MEDS ORDERED: hydrOXYzine PAMOATE 25 MG CAPSULE (FP) PO PRN (16:27)
[2017-06-28] MEDS ORDERED: guaiFENesin/D-METHORPHAN HB 10 ML UNIT-DOSE CUPS PO PRN (16:27)
[2017-06-28] MEDS ORDERED: MAGNESIUM HYDROX 2400MG/30ML ORAL SUSPENSION 30 ML CUP PO PRN (16:27)
[2017-06-28] MEDS ORDERED: NICOTINE POLACRILEX 2 MG GUM BC PRN (16:27)
[2017-06-28] MEDS ORDERED: diazePAM 5 MG TABLET PO ONE (16:27)
[2017-06-28] MEDS ORDERED: LOPERAMIDE HCL 2 MG CAPSULE PO PRN (16:27)
[2017-06-28] MEDS ORDERED: METHADONE HCL 10 MG TABLET (FOR DETOX USE ONLY) PO ONE ×2 (16:27→23:00)
[2017-06-28] MEDS ORDERED: P-EPHED 60MG/TRIPROLIDI 2.5MG TABLET PO PRN (16:27)
[2017-06-28] MEDS ORDERED: MAG HYDROX/AL HYDROX/SIMETH 30 ML UNIT-DOSE CUP PO PRN (16:27)
[2017-06-28] MEDS ORDERED: MAGNESIUM CITRATE 300 ML BOTTLE PO PRN (16:27)
[2017-06-28] MEDS ORDERED: IBUPROFEN 400 MG TABLET (FP) PO PRN (16:27)
[2017-06-28] MEDS: NICOTINE 21 MG/24 HOURS TOPICAL PATCH TD SCH (17:08)
[2017-06-28 18:19] LABS: URINE APPEARANCE SLCLOUDY; URINE BILIRUBIN NEGATIVE (<2.0 mg/dL); URINE COLOR YELLOW; URINE GLUCOSE (UA) NEGATIVE (NEGATIVE); URINE KETONE NEGATIVE (NEGATIVE); URINE NITRITE NEGATIVE (NEGATIVE); URINE PROTEIN NEGATIVE (NEGATIVE); URINE UROBILINOGEN NEGATIVE mg/dL (0.2-1.0)
[2017-06-28 18:30] LABS: URINE LEUK ESTERASE 1+ (NEGATIVE)
[2017-06-28 18:32] LABS: EPI CELLS RARE /HPF (FEW); URINE HYALINE CAST 1 /lpf; URINE MUCUS RARE
[2017-06-28] MEDS ORDERED: MELATONIN 5 MG TABLETS PO PRN (22:00)
[2017-06-28] MEDS: THIAMINE HCL 100 MG TABLET (FP) PO SCH (22:22)
[2017-06-28] MEDS: diazePAM 5 MG TABLET PO SCH (22:22)
[2017-06-29] MEDS: diazePAM 5 MG TABLET PO SCH ×3 (05:33→22:11)
[2017-06-29] MEDS ORDERED: METHADONE HCL 10 MG TABLET (FOR DETOX USE ONLY) PO SCH (10:00)
[2017-06-29 10:01] LABS: HEMATOCRIT 29.3 % (35.4-49); HEMOGLOBIN 9.8 GM/dL (11.7-16.9); MCH 27.8 pg (25.7-33.7); MCHC 33.6 g/dl (32.0-35.9); MEAN CELL VOLUME 82.7 fl (80-96); MEAN PLT VOLUME 7.6 fl (7.5-11.1); PLATELET COUNT 198 K/MM3 (134-434); RBC 3.54 M/mm3 (4.00-5.60); RDW 15.6 % (11.9-15.9)
[2017-06-29 10:10] LABS: ANION GAP 6 (8-16); BLOOD UREA NITROGEN 13 mg/dL (7-18); CALCIUM 8.3 mg/dL (8.5-10.1); CHLORIDE 106 mmol/L (98-107); CO2 26 mmol/L (21-32); GLUCOSE,RANDOM 94 mg/dL (74-106); POTASSIUM 4.2 mmol/L (3.5-5.1); SGOT/AST 222 U/L (15-37); SGPT/ALT 136 U/L (12-78); SODIUM 138 mmol/L (136-145)
[2017-06-29 10:12] LABS: ALK PHOS 94 U/L (45-117); BILIRUBIN,TOTAL 0.2 mg/dL (0.2-1.0); CREATININE 0.9 mg/dL (0.7-1.3); TOT PROT 7.1 g/dl (6.4-8.2)
[2017-06-29] MEDS: ENALAPRIL MALEATE 10 MG TABLET (FP) PO SCH (10:16)
[2017-06-29] MEDS: PRENATAL VITAMINS W/ FOLIC ACID TABLET (FP) PO SCH (10:16)
[2017-06-29] MEDS: diazePAM 5 MG TABLET PO PRN ×2 (10:17→17:43)
--- NOTE | 2017-06-29 11:10 | EKG ---
Test Reason : Blood Pressure : / mmHG Vent. Rate : 073 BPM Atrial Rate : 073 BPM P-R Int : 152 ms QRS Dur : 084 ms QT Int : 374 ms P-R-T Axes : 050 037 -01 degrees QTc Int : 412 ms NORMAL SINUS RHYTHM NORMAL ECG WHEN COMPARED WITH ECG OF 23-APR-2017 17:45, NO SIGNIFICANT CHANGE WAS FOUND Confirmed by BRITTANY NEUMANN MD ([id number]) on 06/29/2017 11:09:50 AM Referred By: Confirmed By:BRITTANY NEUMANN MD
[2017-06-29] MEDS: NICOTINE 21 MG/24 HOURS TOPICAL PATCH TD SCH (11:46)
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
--- NOTE | 2017-06-29 14:42 | PN ---
[facility] CIWA - CIWA Score Nausea/Vomitin Muscle Tremors: 3 Anxiety: 4-Mod. Anxious/Guarded Agitation: 4-Moderately Restless Paroxysmal Sweats: 2 Orientation: 0-Oriented Tacttile Disturbances: 0-None Auditory Disturbances: 0-None Visual Disturbances: 0-None Headache: 0-None Present CIWA-Ar Total Score: 16 S COWS - Scale Resting Pulse: 0= [place] 80 or Below Sweatin=Flushed/Facial Moisture Restless Observation: 1= Difficult to Sit Still Pupil Size: 0= Normal to Room Light Bone or Joint Aches: 1= Mild Discomfort Runny Nose/ Eye Tearin= Nasal Congestion GI Upset > 30mins: 2= Nausea/Diarrhea Tremor Observation of Outstretched Hands: 2= Slight Tremor Visible Yawning Observation: 0= None Anxiety or Irritability: 2=Irritable/Anxious Goose Flesh Skin: 0=Smooth Skin COWS Score: 11 S Progress Note (SOAP) Subjective: Sweats shakes sleep disturbance Objective: 06/29/17 14:38 A & O x 3 Irritable Vital Signs Temperature 97.1 F L 06/29/17 14:28 Pulse Rate 76 06/29/17 14:28 Respiratory Rate 18 06/29/17 14:28 Blood Pressure 120/72 06/29/17 14:28 O2 Sat by Pulse Oximetry (%) Laboratory Last Values WBC 3.0 K/mm3 (4.0-10.0) L D 06/29/17 07:00 RBC 3.54 M/mm3 (4.00-5.60) L 06/29/17 07:00 Hgb 9.8 GM/dL (11.7-16.9) L D 06/29/17 07:00 Hct 29.3 % (35.4-49) L 06/29/17 07:00 MCV 82.7 fl (80-96) 06/29/17 07:00 MCH 27.8 pg (25.7-33.7) 06/29/17 07:00 MCHC 33.6 g/dl (32.0-35.9) 06/29/17 07:00 RDW 15.6 % (11.9-15.9) 06/29/17 07:00 Plt Count 198 K/MM3 (134-434) D 06/29/17 07:00 MPV 7.6 fl (7.5-11.1) D 06/29/17 07:00 Sodium 138 mmol/L (136-145) 06/29/17 07:00 Potassium 4.2 mmol/L (3.5-5.1) 06/29/17 07:00 Chloride 106 mmol/L (98-107) 06/29/17 07:00 Carbon Dioxide 26 mmol/L (21-32) 06/29/17 07:00 Anion Gap 6 (8-16) L 06/29/17 07:00 BUN 13 mg/dL (7-18) D 06/29/17 07:00 Creatinine 0.9 mg/dL (0.7-1.3) 06/29/17 07:00 Creat Clearance w eGFR > 60 (>60) 06/29/17 07:00 POC Glucometer 134 UNITS (80-120) 06/29/17 05:33 Random Glucose 94 mg/dL (74-106) 06/29/17 07:00 Calcium 8.3 mg/dL (8.5-10.1) L 06/29/17 07:00 Total Bilirubin 0.2 mg/dL (0.2-1.0) D 06/29/17 07:00 AST 222 U/L (15-37) H D 06/29/17 07:00 ALT 136 U/L (12-78) H D 06/29/17 07:00 Alkaline Phosphatase 94 U/L (45-117) D 06/29/17 07:00 Total Protein 7.1 g/dl (6.4-8.2) 06/29/17 07:00 Albumin 3.0 g/dl (3.4-5.0) L 06/29/17 07:00 Urine Color Yellow 06/28/17 14:00 Urine Appearance Slcloudy 06/28/17 14:00 Urine pH 5.0 (5.0-8.0) 06/28/17 14:00 Ur Specific [place] 1.019 (1.001-1.035) 06/28/17 14:00 Urine Protein Negative (NEGATIVE) 06/28/17 14:00 Urine Glucose (UA) Negative (NEGATIVE) 06/28/17 14:00 Urine Ketones Negative (NEGATIVE) 06/28/17 14:00 Urine Blood Negative (NEGATIVE) 06/28/17 14:00 Urine Nitrite Negative (NEGATIVE) 06/28/17 14:00 Urine Bilirubin Negative (<2.0 mg/dL) 06/28/17 14:00 Urine Urobilinogen Negative mg/dL (0.2-1.0) 06/28/17 14:00 Ur Leukocyte Esterase 1+ (NEGATIVE) H 06/28/17 14:00 Urine WBC (Auto) 18 /hpf (3-5) 06/28/17 14:00 Urine RBC (Auto) 5 /hpf (0-3) 06/28/17 14:00 Ur Epithelial Cells Rare /HPF (FEW) 06/28/17 14:00 Hyaline Casts 1 /lpf 06/28/17 14:00 Urine Mucus Rare 06/28/17 14:00 labs noted, +urine leukocyte esterase Assessment: 06/29/17 14:42 Withdrawal sx UTI Plan: Continue detox Urine culture Increase hydration
[2017-06-29] MEDS ORDERED: ZOLPIDEM TARTRATE 5 MG TABLET PO PRN (22:00)
[2017-06-29] MEDS: OLANZapine 5 MG TABLET PO SCH (22:11)
[2017-06-29] MEDS: THIAMINE HCL 100 MG TABLET (FP) PO SCH (22:11)
[2017-06-29] MEDS: busPIRone HCL 10 MG TABLET (FP) PO SCH (22:11)
[2017-06-30] MEDS: diazePAM 5 MG TABLET PO PRN ×2 (06:10→14:00)
[2017-06-30] MEDS: METHADONE HCL 5 MG TABLET (FOR DETOX USE ONLY) PO SCH (10:18)
[2017-06-30] MEDS: busPIRone HCL 10 MG TABLET (FP) PO SCH ×2 (10:18→22:31)
[2017-06-30] MEDS: ENALAPRIL MALEATE 10 MG TABLET (FP) PO SCH (10:18)
[2017-06-30] MEDS: diazePAM 5 MG TABLET PO SCH ×2 (10:18→22:35)
[2017-06-30] MEDS: NICOTINE 21 MG/24 HOURS TOPICAL PATCH TD SCH (10:19)
[2017-06-30] MEDS: PRENATAL VITAMINS W/ FOLIC ACID TABLET (FP) PO SCH (10:19)
[2017-06-30] MEDS: OLANZapine 5 MG TABLET PO SCH ×2 (10:20→22:31)
--- NOTE | 2017-06-30 13:09 | PN ---
S CIWA - CIWA Score Nausea/Vomitin Muscle Tremors: None Anxiety: 5 Agitation: 3 Paroxysmal Sweats: No Perspiration Orientation: 0-Oriented Tacttile Disturbances: 3-Moderate Itch/Numb/Burn Auditory Disturbances: 2-Mild Harshness/Frighten Visual Disturbances: 2-Mild Sensitivity Headache: 0-None Present CIWA-Ar Total Score: 17 BHS COWS - Scale Resting Pulse: 0= [place] 80 or Below Sweatin= Chills/Flushing Restless Observation: 0= Sits Still Pupil Size: 0= Normal to Room Light Bone or Joint Aches: 4=Acute Joint/Muscle Pain Runny Nose/ Eye Tearin= None GI Upset > 30mins: 1= Stomach Cramp Tremor Observation of Outstretched Hands: 0= None Yawning Observation: 2= >3x During Session Anxiety or Irritability: 4=Extreme Anxiety Goose Flesh Skin: 3=[place] COWS Score: 15 BHS Progress Note (SOAP) Subjective: Body Aches, Diarrhea, Anxious, Fatigue, Stomach Cramping. Objective: PATIENT A & O X 3. NO ACUTE DISTRESS. 06/30/17 13:07 Vital Signs Temperature 97.4 F L 06/30/17 09:16 Pulse Rate 71 06/30/17 09:16 Respiratory Rate 16 06/30/17 09:16 Blood Pressure 114/74 06/30/17 09:16 O2 Sat by Pulse Oximetry (%) Laboratory Tests 06/28/17 06/28/17 06/29/17 14:00 16:03 05:33 WBC RBC Hgb Hct MCV MCH MCHC RDW Plt Count MPV Sodium Potassium Chloride Carbon Dioxide Anion Gap BUN Creatinine Creat Clearance w eGFR POC Glucometer 106 134 Random Glucose Calcium Total Bilirubin AST ALT Alkaline Phosphatase Total Protein Albumin Urine Color Yellow Urine Appearance Slcloudy Urine pH 5.0 Ur Specific [place] 1.019 Urine Protein Negative Urine Glucose (UA) Negative Urine Ketones Negative Urine Blood Negative Urine Nitrite Negative Urine Bilirubin Negative Urine Urobilinogen Negative Ur Leukocyte Esterase 1+ H Urine WBC (Auto) 18 Urine RBC (Auto) 5 Ur Epithelial Cells Rare Hyaline Casts 1 Urine Mucus Rare RPR Titer HIV 1&2 Antibody Screen HIV P24 Antigen 06/29/17 06/29/17 06/29/17 07:00 07:00 07:00 WBC 3.0 L D RBC 3.54 L Hgb 9.8 L D Hct 29.3 L MCV 82.7 MCH 27.8 MCHC 33.6 RDW 15.6 Plt Count 198 D MPV 7.6 D Sodium 138 Potassium 4.2 Chloride 106 Carbon Dioxide 26 Anion Gap 6 L BUN 13 D Creatinine 0.9 Creat Clearance w eGFR > 60 POC Glucometer Random Glucose 94 Calcium 8.3 L Total Bilirubin 0.2 D AST 222 H D ALT 136 H D Alkaline Phosphatase 94 D Total Protein 7.1 Albumin 3.0 L Urine Color Urine Appearance Urine pH Ur Specific [place] Urine Protein Urine Glucose (UA) Urine Ketones Urine Blood Urine Nitrite Urine Bilirubin Urine Urobilinogen Ur Leukocyte Esterase Urine WBC (Auto) Urine RBC (Auto) Ur Epithelial Cells Hyaline Casts Urine Mucus RPR Titer HIV 1&2 Antibody Screen Negative HIV P24 Antigen Negative 06/29/17 06/29/17 06/30/17 07:00 16:19 05:57 WBC RBC Hgb Hct MCV MCH MCHC RDW Plt Count MPV Sodium Potassium Chloride Carbon Dioxide Anion Gap BUN Creatinine Creat Clearance w eGFR POC Glucometer 154 92 Random Glucose Calcium Total Bilirubin AST ALT Alkaline Phosphatase Total Protein Albumin Urine Color Urine Appearance Urine pH Ur Specific [place] Urine Protein Urine Glucose (UA) Urine Ketones Urine Blood Urine Nitrite Urine Bilirubin Urine Urobilinogen Ur Leukocyte Esterase Urine WBC (Auto) Urine RBC (Auto) Ur Epithelial Cells Hyaline Casts Urine Mucus RPR Titer Nonreactive HIV 1&2 Antibody Screen HIV P24 Antigen LABS NOTED. 06/30/17 13:09 Assessment: 06/30/17 13:07 WITHDRAWAL SYMPTOMS. ANEMIA. 06/30/17 13:08 Plan: CONTINUE DETOX. INCREASE DAILY PO FLUID INTAKE. ENCOURAGE AMBULATION. REPEAT AST, ALT TOMORROW AM FOR ELEVATED ADMISSION LEVELS.
--- NOTE | 2017-06-30 18:22 | PN ---
[facility] Progress Note Note: NURSE KAY CALLED TO SEE PT C/O WEAKNESS, DIARRHEA,STOMACH CRAMPS, LOW BP 80/ 42 PT IS S/P COLOSTOMY ON SEEING PT WHO WAS COMING OUT OF THE BATHROOM PT C/O MID ABDOMINAL CRAMPS AROUND COLOSTOMY SITE. PT WAS OFFERED TO BE TAKEN TO [facility] ER FOR FURTHER EVALUATION BUT PT REFUSED STATING HE WILL SIGN OUT FROM HERE IF WE MAKE HIM GO TO THE ER. PT SIGNED REFUSAL PAPER. PT IS ALERT O X 3. AMBULATING WITH STEADY GAIT CARDIAC: S1 S1, NO MURMUR ABDOMEN: SOFT. BS+ . LUNGS: CLEAR TO AUSCULTATE PULSE OX 95% BP 88/57 PULSE 75 RR 18 TEMP 97.0 BGM 157 AT 6:30 PM. (88MG/DL EARLIER READING) INCREASE PO FLUIDS ENCOURAGED AND PROVIDED AT BEDSIDE. MONITOR PT STATUS PT WILL BE TRANSFERED TO [facility] ER IF NECESSARY.
[2017-06-30] MEDS: THIAMINE HCL 100 MG TABLET (FP) PO SCH (22:30)
[2017-07-01] MEDS ORDERED: TRIMETHOBENZAMIDE HCL 200MG/2ML INJ IM PRN (02:30)
--- NOTE | 2017-07-01 02:32 | PN ---
[facility] Progress Note Note: ASKED TO SEE CLIENT FOR C/O N/V ABD PAIN. CLIENT C/O N/V, WEAKNESS, ABD PAIN. "THEY DONT GIVE ME ANYTHING FOR THE FUCKING NAUSEA". DENIES C.P., SOB CLIENT NOTED LYING IN BED AWAKE, ALERT, LETHARGIC, LABORED, TACHYPNEIC, ARGUMENTIVE CV RRR ABD NL BS WITH ACTIVE COLOSTOMY SKIN- MOIST, SWEATS Vital Signs Temperature 95.3 F L 07/01/17 02:18 Pulse Rate 66 07/01/17 02:18 Respiratory Rate 36 H 07/01/17 02:18 Blood Pressure 79/53 07/01/17 02:18 O2 Sat by Pulse Oximetry (%) Laboratory Last Values WBC 3.0 K/mm3 (4.0-10.0) L D 06/29/17 07:00 RBC 3.54 M/mm3 (4.00-5.60) L 06/29/17 07:00 Hgb 9.8 GM/dL (11.7-16.9) L D 06/29/17 07:00 Hct 29.3 % (35.4-49) L 06/29/17 07:00 MCV 82.7 fl (80-96) 06/29/17 07:00 MCH 27.8 pg (25.7-33.7) 06/29/17 07:00 MCHC 33.6 g/dl (32.0-35.9) 06/29/17 07:00 RDW 15.6 % (11.9-15.9) 06/29/17 07:00 Plt Count 198 K/MM3 (134-434) D 06/29/17 07:00 MPV 7.6 fl (7.5-11.1) D 06/29/17 07:00 Sodium 138 mmol/L (136-145) 06/29/17 07:00 Potassium 4.2 mmol/L (3.5-5.1) 06/29/17 07:00 Chloride 106 mmol/L (98-107) 06/29/17 07:00 Carbon Dioxide 26 mmol/L (21-32) 06/29/17 07:00 Anion Gap 6 (8-16) L 06/29/17 07:00 BUN 13 mg/dL (7-18) D 06/29/17 07:00 Creatinine 0.9 mg/dL (0.7-1.3) 06/29/17 07:00 Creat Clearance w eGFR > 60 (>60) 06/29/17 07:00 POC Glucometer 152 UNITS (80-120) 06/30/17 18:24 Random Glucose 94 mg/dL (74-106) 06/29/17 07:00 Calcium 8.3 mg/dL (8.5-10.1) L 06/29/17 07:00 Total Bilirubin 0.2 mg/dL (0.2-1.0) D 06/29/17 07:00 AST 222 U/L (15-37) H D 06/29/17 07:00 ALT 136 U/L (12-78) H D 06/29/17 07:00 Alkaline Phosphatase 94 U/L (45-117) D 06/29/17 07:00 Total Protein 7.1 g/dl (6.4-8.2) 06/29/17 07:00 Albumin 3.0 g/dl (3.4-5.0) L 06/29/17 07:00 Urine Color Yellow 06/28/17 14:00 Urine Appearance Slcloudy 06/28/17 14:00 Urine pH 5.0 (5.0-8.0) 06/28/17 14:00 Ur Specific [place] 1.019 (1.001-1.035) 06/28/17 14:00 Urine Protein Negative (NEGATIVE) 06/28/17 14:00 Urine Glucose (UA) Negative (NEGATIVE) 06/28/17 14:00 Urine Ketones Negative (NEGATIVE) 06/28/17 14:00 Urine Blood Negative (NEGATIVE) 06/28/17 14:00 Urine Nitrite Negative (NEGATIVE) 06/28/17 14:00 Urine Bilirubin Negative (<2.0 mg/dL) 06/28/17 14:00 Urine Urobilinogen Negative mg/dL (0.2-1.0) 06/28/17 14:00 Ur Leukocyte Esterase 1+ (NEGATIVE) H 06/28/17 14:00 Urine WBC (Auto) 18 /hpf (3-5) 06/28/17 14:00 Urine RBC (Auto) 5 /hpf (0-3) 06/28/17 14:00 Ur Epithelial Cells Rare /HPF (FEW) 06/28/17 14:00 Hyaline Casts 1 /lpf 06/28/17 14:00 Urine Mucus Rare 06/28/17 14:00 RPR Titer Nonreactive (NONREACTIVE) 06/29/17 07:00 HIV 1&2 Antibody Screen Negative 06/29/17 07:00 HIV P24 Antigen Negative 06/29/17 07:00 BGM 106 WITHDRAWAL SX'S, HYPOTENSION OFFERED TO TRANSFER CLIENT TO [facility] REPORTS GIVEN TO DR. CEE CLIENT REFUSING TO GO TO ER STATES "THEY ARE NOT GIVING ME THE MEDICATION I NEED " MEDICATIONS REVIEWED TIGAN 200MG IM Q 6 H PRN BOLUS 1 L IV NS. CONT TO MONITOR FOR WORSENING SX'S BMP IN AM
[2017-07-01] MEDS ORDERED: SODIUM CHLORIDE 0.9% 500 ML INFUS.BAG IV ONE (04:13)
[2017-07-01] MEDS: diazePAM 5 MG TABLET PO PRN (06:46)
[2017-07-01] MEDS ORDERED: RANITIDINE HCL 150 MG TABLET (FP) PO ONE (07:05)
[2017-07-01] MEDS ORDERED: BACLOFEN 10 MG TABLET (FP) PO ONE (07:09)
--- NOTE | 2017-07-01 07:37 | PN ---
[facility] Progress Note Note: PT REEVAL THIS MORNING REPORTS FEELING BETTER C/O ON GOING ABD CRAMPS. DENIES SOB, C.P., N/V Vital Signs 07/01/17 07/01/17 07/01/17 00:30 01:59 02:18 Temperature 96.6 F L 95.3 F L Pulse Rate 76 66 Respiratory 18 22 36 H Rate Blood Pressure 86/62 79/53 07/01/17 07/01/17 07/01/17 03:11 03:30 05:00 Temperature 96.5 F L 97.5 F L Pulse Rate 67 63 Respiratory 27 H 18 24 Rate Blood Pressure 89/59 99/61 ZANTAC 150 MG PO NOW THEN START BID BACLOFEN 10 MG PO NOW CONT PO HYDRATION F/U REPEAT BMP
[2017-07-01 09:30] VITALS: BP 124/78; PULSE 55; TEMP 95.6
--- NOTE | 2017-07-01 10:16 | PN ---
[facility] Progress Note (SOAP) Subjective: Stomach Cramping, Vomiting, Diarrhea, Anxious, Body Aches. Objective: 07/01/17 10:32 PATIENT A & O X 3. PATIENT REPORTING ABDOMINAL PAIN (PRIMARILY LOWER ABDOMINAL) SINCE LAST NIGHT. SEE FOLLOWING PROGRESS NOTE. Vital Signs Temperature 95.6 F L 07/01/17 09:28 Pulse Rate 55 L 07/01/17 09:28 Respiratory Rate 16 07/01/17 09:28 Blood Pressure 124/78 07/01/17 09:28 O2 Sat by Pulse Oximetry (%) Laboratory Tests 06/28/17 06/28/17 06/29/17 14:00 16:03 05:33 WBC RBC Hgb Hct MCV MCH MCHC RDW Plt Count MPV Sodium Potassium Chloride Carbon Dioxide Anion Gap BUN Creatinine Creat Clearance w eGFR POC Glucometer 106 134 Random Glucose Calcium Total Bilirubin AST ALT Alkaline Phosphatase Total Protein Albumin Urine Color Yellow Urine Appearance Slcloudy Urine pH 5.0 Ur Specific Blodgett 1.019 Urine Protein Negative Urine Glucose (UA) Negative Urine Ketones Negative Urine Blood Negative Urine Nitrite Negative Urine Bilirubin Negative Urine Urobilinogen Negative Ur Leukocyte Esterase 1+ H Urine WBC (Auto) 18 Urine RBC (Auto) 5 Ur Epithelial Cells Rare Hyaline Casts 1 Urine Mucus Rare RPR Titer HIV 1&2 Antibody Screen HIV P24 Antigen 06/29/17 06/29/17 06/29/17 07:00 07:00 07:00 WBC 3.0 L D RBC 3.54 L Hgb 9.8 L D Hct 29.3 L MCV 82.7 MCH 27.8 MCHC 33.6 RDW 15.6 Plt Count 198 D MPV 7.6 D Sodium 138 Potassium 4.2 Chloride 106 Carbon Dioxide 26 Anion Gap 6 L BUN 13 D Creatinine 0.9 Creat Clearance w eGFR > 60 POC Glucometer Random Glucose 94 Calcium 8.3 L Total Bilirubin 0.2 D AST 222 H D ALT 136 H D Alkaline Phosphatase 94 D Total Protein 7.1 Albumin 3.0 L Urine Color Urine Appearance Urine pH Ur Specific Blodgett Urine Protein Urine Glucose (UA) Urine Ketones Urine Blood Urine Nitrite Urine Bilirubin Urine Urobilinogen Ur Leukocyte Esterase Urine WBC (Auto) Urine RBC (Auto) Ur Epithelial Cells Hyaline Casts Urine Mucus RPR Titer HIV 1&2 Antibody Screen Negative HIV P24 Antigen Negative 06/29/17 06/29/17 06/30/17 07:00 16:19 05:57 WBC RBC Hgb Hct MCV MCH MCHC RDW Plt Count MPV Sodium Potassium Chloride Carbon Dioxide Anion Gap BUN Creatinine Creat Clearance w eGFR POC Glucometer 154 92 Random Glucose Calcium Total Bilirubin AST ALT Alkaline Phosphatase Total Protein Albumin Urine Color Urine Appearance Urine pH Ur Specific Blodgett Urine Protein Urine Glucose (UA) Urine Ketones Urine Blood Urine Nitrite Urine Bilirubin Urine Urobilinogen Ur Leukocyte Esterase Urine WBC (Auto) Urine RBC (Auto) Ur Epithelial Cells Hyaline Casts Urine Mucus RPR Titer Nonreactive HIV 1&2 Antibody Screen HIV P24 Antigen 06/30/17 06/30/17 07/01/17 16:36 18:24 02:20 WBC RBC Hgb Hct MCV MCH MCHC RDW Plt Count MPV Sodium Potassium Chloride Carbon Dioxide Anion Gap BUN Creatinine Creat Clearance w eGFR POC Glucometer 88 152 106 Random Glucose Calcium Total Bilirubin AST ALT Alkaline Phosphatase Total Protein Albumin Urine Color Urine Appearance Urine pH Ur Specific Bl[place]gett Urine Protein Urine Glucose (UA) Urine Ketones Urine Blood Urine Nitrite Urine Bilirubin Urine Urobilinogen Ur Leukocyte Esterase Urine WBC (Auto) Urine RBC (Auto) Ur Epithelial Cells Hyaline Casts Urine Mucus RPR Titer HIV 1&2 Antibody Screen HIV P24 Antigen 07/01/17 06:11 WBC RBC Hgb Hct MCV MCH MCHC RDW Plt Count MPV Sodium Potassium Chloride Carbon Dioxide Anion Gap BUN Creatinine Creat Clearance w eGFR POC Glucometer 110 Random Glucose Calcium Total Bilirubin AST ALT Alkaline Phosphatase Total Protein Albumin Urine Color Urine Appearance Urine pH Ur Specific Blodgett Urine Protein Urine Glucose (UA) Urine Ketones Urine Blood Urine Nitrite Urine Bilirubin Urine Urobilinogen Ur Leukocyte Esterase Urine WBC (Auto) Urine RBC (Auto) Ur Epithelial Cells Hyaline Casts Urine Mucus RPR Titer HIV 1&2 Antibody Screen HIV P24 Antigen LABS NOTED. 07/01/17 10:34 Assessment: 07/01/17 10:32 WITHDRAWAL SYMPTOMS. ABDOMINAL PAIN. Plan: CONTINUE DETOX. PATIENT TO BE SENT TO [facility] [place] [facility] VIA AMBULANCE FOR FURTHER MEDICAL EVALUATION. SEE FOLLOWING PROGRESS NOTE.
--- NOTE | 2017-07-01 10:43 | PN ---
[facility] Progress Note Note: PATIENT REPORTING ABDOMINAL PAIN (SHARP, CONSTANT, PRIMARILY LOWER ABDOMINAL) SINCE LAST NIGHT. PATIENT ALSO REPORTING VOMITING, POOR APPETITE, AND "LOOSE LIQUID" DRAINAGE IN COLOSTOMY. NO ERYTHEMA, DISTENSION, BLEEDING, OR UNUSUAL DISCHARGE NOTED IN ABDOMINAL AREA OR AROUND SITE OF COLOSTOMY. VS STABLE AT THIS TIME, PATIENT AFEBRILE. HOWEVER, PATIENT HAD LOW BP ON SEVERAL PREVIOUS BP READINGS BEFORE THIS AM. PATIENT APPEARS GUARDED AND IN CONSIDERABLE DISCOMFORT. PATIENT ALSO HAVING DIFFICULTY GETTING OUT OF BED TO AMBULATE. 1L NS IV GIVEN TO PATIENT LAST NIGHT. PATIENT NOTED TO HAVE ANEMIA AND LEUKOPENIA PER [facility] ADMISSION CBC. PATIENT HAS HISTORY OF MULTIPLE ABDOMINAL SURGERIES AND COLOSTOMY PLACEMENT SECONDARY TO RUPTURED APPENDIX. REPORT GIVEN TO DR. DOUGIE PENALOZA AT [facility] ER. PATIENT TO BE TAKEN VIA AMBULANCE TO [facility] FOR FURTHER MEDICAL EVALUATION. Benito BACK NP
[2017-07-01] MEDS: diazePAM 5 MG TABLET PO SCH ×2 (10:59→23:15)
[2017-07-01] MEDS: NICOTINE 21 MG/24 HOURS TOPICAL PATCH TD SCH (10:59)
[2017-07-01] MEDS: busPIRone HCL 10 MG TABLET (FP) PO SCH ×2 (10:59→23:15)
[2017-07-01] MEDS: METHADONE HCL 5 MG TABLET (FOR DETOX USE ONLY) PO SCH (10:59)
[2017-07-01] MEDS: PRENATAL VITAMINS W/ FOLIC ACID TABLET (FP) PO SCH (10:59)
[2017-07-01 16:34] LABS: CHLORIDE 101 mmol/L (98-107); SODIUM 129 mmol/L (136-145)
[2017-07-01 16:50] LABS: ANION GAP 12 (8-16); BLOOD UREA NITROGEN 41 mg/dL (7-18); CALCIUM 9.4 mg/dL (8.5-10.1); CO2 16 mmol/L (21-32); CREATININE 2.8 mg/dL (0.7-1.3); GLUCOSE,RANDOM 107 mg/dL (74-106); SGOT/AST 24 U/L (15-37); SGPT/ALT 72 U/L (12-78)
[2017-07-01 16:57] LABS: POTASSIUM 7.8 mmol/L (3.5-5.1)
--- NOTE | 2017-07-01 17:46 | PN ---
[facility] Progress Note Note: Notified by Emily LEGGETT that lab called with K+ result of 7.4. Patient was transferred to [facility] ER earlier today by XIOMARA Hebert for abdominal pain and is currently being evaluated in emergency room.
[2017-07-01] MEDS ORDERED: OLANZapine 5 MG TABLET PO SCH (22:00)
[2017-07-01] MEDS ORDERED: RANITIDINE HCL 150 MG TABLET (FP) PO SCH (22:00)
[2017-07-01] MEDS: THIAMINE HCL 100 MG TABLET (FP) PO SCH (23:16)
[2017-07-02] MEDS ORDERED: diazePAM 5 MG TABLET PO SCH (10:00)
[2017-07-02] MEDS ORDERED: METHADONE HCL 10 MG TABLET (FOR DETOX USE ONLY) PO SCH (10:00)
[2017-07-03] MEDS ORDERED: METHADONE HCL 5 MG TABLET (FOR DETOX USE ONLY) PO SCH (06:00)
== END 2017-07-01 23:24 | disposition short-term general hospital (02) | DRG 773 ==
LOC: YASAS 14:45 → Y3N 15:42
PROVIDERS: ADMIT Internal Medicine; ATTEND Internal Medicine
PROC: HZ2ZZZZ Detoxification Services for Substance Abuse Treatment (ICD-10-PCS; principal; 2017-06-28)
DX: F11.23 Opioid dependence with withdrawal (principal); F13.230 Sedative, hypnotic or anxiolytic dependence with withdrawal, uncomplicated; F14.20 Cocaine dependence, uncomplicated; F17.213 Nicotine dependence, cigarettes, with withdrawal; F19.24 Other psychoactive substance dependence with psychoactive substance-induced mood disorder; D50.9 Iron deficiency anemia, unspecified; I10 Essential (primary) hypertension; I95.9 Hypotension, unspecified; G47.00 Insomnia, unspecified; E11.9 Type 2 diabetes mellitus without complications; N39.0 Urinary tract infection, site not specified; B18.2 Chronic viral hepatitis C; R10.9 Unspecified abdominal pain; R11.0 Nausea; Z93.3 Colostomy status; Z79.4 Long term (current) use of insulin; Z91.5 Personal history of self-harm
CPT/HCPCS: 36415; 80048; 80053; 81003; 81015; 82962; 84450; 84460; 85027; 86593; 87389; 93005; 93010; J0475

== ENCOUNTER 2017-07-01 11:41 | Inpatient (IN) | payer OTHER ==
--- NOTE | 2017-07-01 12:08 | PDOC ---
Attending Attestation - Resident Resident Name: Ernesto Ramirez - ED Attending Attestation I have performed the following: I have examined & evaluated the patient, The case was reviewed & discussed with the resident, I agree w/resident's findings & plan, Exceptions are as noted - HPI HPI: 07/01/17 13:53 Mr Hernandez is a 42 yo M with a h/o HTN, anemia, IVDA, opioid dependence on methadone maintenance, cocaine dependence, xanax dependence, nicotine dependence , Hep C, h/o perforated appendix rupture s/p multiple abdominal procedures colostomy (2014) who presents from [facility] due to diffuse abdominal pain, nausea and vomiting Pt noted to be hypotensive at [facility] since yesterday afternoon In the ER, normotensive No fevers or chills - Physicial Exam PE: 07/01/17 13:54 GENERAL: The patient is in no acute distress. LUNGS: Breath sounds equal, clear to auscultation bilaterally. No wheezes, and no crackles. HEART:Regular rate and rhythm, normal S1 and S2 without murmur, rub or gallop. ABDOMEN: Soft, non distended, ostomy pink and patent EXTREMITIES: Normal range of motion NEUROLOGICAL: Cranial nerves II through XII grossly intact. Normal speech. No focal neurological deficits. MUSCULOSKELETAL: Back non-tender to palpation, no CVA tenderness SKIN: Warm, Dry, normal turgor, no rashes or lesions noted. 07/01/17 13:58 - Medical Decision Making 07/01/17 13:59 42 yo M with a complaint of abdominal pain, complicated abdominal surgery history DD broad and includes SBO, colitis, intra-abdominal abscess Will do : Labs CT with oral contrast (pt is very difficult access) 07/01/17 15:03 Difficult to obtain labs Laboratory Tests 06/29/17 06/29/17 07/01/17 07:00 07:00 13:05 WBC 3.0 L D 9.7 D Hgb 9.8 L D 12.9 D Hct 29.3 L 38.1 D Plt Count 198 D 345 D Sodium 138 Potassium 4.2 Chloride 106 Carbon Dioxide 26 BUN 13 D Creatinine 0.9 Random Glucose 94 Troponin I Total Protein 07/01/17 13:40 WBC Hgb Hct Plt Count Sodium 127 L Potassium 7.7 H* D Chloride 103 Carbon Dioxide 15 L D BUN 44 H D Creatinine 2.3 H D Random Glucose 110 H Troponin I < 0.02 Total Protein 9.5 H D Will aggressively hydrate given new renal insufficiency and hyponatremia Pt also given Insulin, Dextrose, Calcium Continued IV hydration CT with oral contrast only, no IV CT very limited examination No obstruction Will plan to admit Repeat BMP prior to transfer to the floor Potassium is now 5.6 Clinical impression: Acute renal insufficiency, initial presentation Hyperkalemia, initial presentation Abdominal pain, initial presentation
--- NOTE | 2017-07-01 12:26 | PDOC ---
History of Present Illness - General Chief Complaint: Pain Stated Complaint: PAIN Time Seen by Provider: 07/01/17 11:43 - History of Present Illness Initial Comments: 07/01/17 12:21 42 yo M with h/o HTN, anemia, leukopenia, IVDA, opioid dependence on methadone maintenance, cocaine dependence, xanax dependence, nicotine dependence, Hep C, h /o perforated appendix rupture s/p multiple abdominal procedures colostomy (2014 ) BIBA from [facility] for abdominal pain. Patient with 1 day of unremitting, sharp, lower-mid predominant abdominal pain and hypotension with multiple low BP readings. No identifable triggers or alleviators. Beginning yesterday evening. Also endorses vomiting with bilious, non bloody emesis ( unknown amount of times), decreased appetite and loose liquid drainage per colostomy. No blood visualized. Last detox ( 04/23-04/27/17) Denies F/C, CP, SOB, abdominal pain, diarrhea, constipation, urinary complaints , weakness, lightheadedness, sensory changes PMHx: as noted above. Denies recent travel/hiking/camping. ROS: as noted above SHx: as noted above. Past History - Past Medical History Allergies/Adverse Reactions: Allergies Allergy/AdvReac Type Severity Reaction Status Date / Time No Known Allergies Allergy Verified 06/28/17 15:25 Home Medications: Ambulatory Orders Buspirone HCl [Buspar -] 10 mg PO BID #30 tablet 01/02/17 Enalapril Maleate [Vasotec -] 10 mg PO DAILY #30 tablet 01/05/17 Olanzapine [Zyprexa -] 5 mg PO BID 06/28/17 Anemia: Yes (Iron-deficiency tpye. No current meds.) Asthma: No Cancer: No Cardiac Disorders: No CVA: No COPD: No CHF: No Dementia: No Diabetes: No GI Disorders: No Disorders: No HTN: Yes (On med.) Hypercholesterolemia: No Kidney Stones: No Liver Disease: No Seizures: No Thyroid Disease: No - Surgical History Abdominal Surgery: Yes (colostomy bag in place since 2013 (6 surgeries)) Appendectomy: Yes (in 2013) Cardiac Surgery: No Cholecystectomy: No Lung Surgery: No Neurologic Surgery: No Orthopedic Surgery: No - Reproductive History Testicular Surgery: No - Suicide/Smoking/Psychosocial Hx Smoking History: Current every day smoker Have you smoked in the past 12 months: Yes Number of Cigarettes Smoked Daily: 20 Cigars Per Day: 1 Information on smoking cessation initiated: No 'Breaking Loose' booklet given: 06/28/17 Hx Alcohol Use: No Drug/Substance Use Hx: No Substance Use Type: Cocaine, Heroin, Tranquilizers Hx Substance Use Treatment: Yes ([facility] 04/23/17 to 04/27/17) Review of Systems - Review of Systems Comments:: 07/01/17 12:21 GENERAL/CONSTITUTIONAL: No fever or chills. No weakness. HEAD, EYES, EARS, NOSE AND THROAT: No change in vision. No ear pain or discharge. No sore throat. CARDIOVASCULAR: No chest pain or shortness of breath RESPIRATORY: No cough, wheezing, or hemoptysis. GASTROINTESTINAL: + Abdominal pain, nausea, and vomiting. No diarrhea or constipation. GENITOURINARY: No dysuria, frequency, or change in urination. MUSCULOSKELETAL: No joint or muscle swelling or pain. No neck or back pain. SKIN: No rash NEUROLOGIC: No headache, vertigo, loss of consciousness, or change in strength/ sensation. ENDOCRINE: No increased thirst. No abnormal weight change HEMATOLOGIC/LYMPHATIC: No anemia, easy bleeding, or history of blood clots. ALLERGIC/IMMUNOLOGIC: No hives or skin allergy. *Physical Exam - Vital Signs Last Vital Signs Temp Pulse Resp BP Pulse Ox 98.0 F 73 16 136/85 98 07/01/17 11:41 07/01/17 11:41 07/01/17 11:41 07/01/17 11:41 07/01/17 11:41 - Physical Exam Comments: 07/01/17 12:21 GENERAL: Awake, alert, and fully oriented, in no acute distress HEAD: No signs of trauma, normocephalic, atraumatic EYES: PERRLA, EOMI, sclera anicteric, conjunctiva clear ENT: Hearing grossly normal, nares patent, oropharynx clear without exudates. Moist mucosa NECK: Normal ROM, supple, no lymphadenopathy, JVD, or masses LUNGS: No distress, speaks full sentences, clear to auscultation bilaterally HEART: Regular rate and rhythm, normal S1 and S2, no murmurs, rubs or gallops, peripheral pulses normal and equal bilaterally. ABDOMEN:Midabodminal ttp.Old surgical scarring present left sided abdomen. nontender, normoactive bowel sounds. No guarding, no rebound. No masses EXTREMITIES : Normal inspection, Normal range of motion, no edema. No clubbing or cyanosis. SKIN: Warm, Dry, normal turgor, no rashes or lesions noted ED Treatment Course - LABORATORY CBC & Chemistry Diagram: 07/02/17 06:15 07/02/17 06:15 Medical Decision Making - Medical Decision Making 07/01/17 12:51 42 yo M with h/o HTN, anemia, leukopenia, IVDA, opioid dependence on methadone maintenance, cocaine dependence, xanax dependence, nicotine dependence, Hep C, h /o perforated appendix rupture s/p multiple abdominal procedures colostomy (2014 ) BIBA from [facility] for abdominal pain, N/V, and hypotension ( SBP 70's-90's). VSS, A&Ox3. In setting of hypotension and abdominal pain will assess for colitis, mesenteric ischemia, AAA, Ao dissection, Aortoenteric fistula ( multiple abdominal procedures) C-dif. ED Course: CBC,CMP, Cardiac, C-dif Ag.,Cardiac Pr NS 1 L, Zofran UA EKG 07/01/17 13:57 EKG: Sinus bradycardia with nml MD interval. Nml axis. Absent JENNIFER, STD, or abnml TWI. 07/01/17 14:46 BUN/Cr: 44/2.3 K+ 7.7 Na 127 10 U insulin, 25 gm D50 D5 1/2 NS, 10 ml 10 % Calcium gluconate Patient admitted to inpatient medicine. *DC/Admit/Observation/Transfer Diagnosis at time of Disposition: Abdominal pain, Hyperkalemia - Discharge Dispostion Decision to Admit order: Yes - Referrals - Patient Instructions - Post Discharge Activity - Attestations Physician Attestion: 07/01/17 12:22 I attest to the information provided in this note.
[2017-07-01] MEDS ORDERED: SODIUM CHLORIDE 1,000 ML IV STA ×2 (12:47→15:03)
[2017-07-01] MEDS ORDERED: ONDANSETRON 4 MG/2 ML VIAL IVPUSH ONE (12:47)
[2017-07-01] MEDS ORDERED: ONDANSETRON 4 MG/2 ML VIAL ONE (13:01)
[2017-07-01 13:46] LABS: BASO % 0.4 % (0-2.0); EOS % 0.2 % (0-4.5); HEMATOCRIT 38.1 % (35.4-49); HEMOGLOBIN 12.9 GM/dL (11.7-16.9); MCH 27.5 pg (25.7-33.7); MCHC 33.7 g/dl (32.0-35.9); MEAN CELL VOLUME 81.7 fl (80-96); MEAN PLT VOLUME 7.7 fl (7.5-11.1); MONO % 4.3 % (3.8-10.2); NEUT % 82.1 % (42.8-82.8); PLATELET COUNT 345 K/MM3 (134-434); RBC 4.67 M/mm3 (4.00-5.60); RDW 16.4 % (11.9-15.9); WHITE BLOOD COUNT 9.7 K/mm3 (4.0-10.0)
[2017-07-01 14:12] LABS: ALBUMIN 4.1 g/dl (3.4-5.0); ANION GAP 9 (8-16); BILIRUBIN,TOTAL 0.3 mg/dL (0.2-1.0); BLOOD UREA NITROGEN 44 mg/dL (7-18); CALCIUM 9.2 mg/dL (8.5-10.1); CHLORIDE 103 mmol/L (98-107); CO2 15 mmol/L (21-32); CREATININE 2.3 mg/dL (0.7-1.3); GLUCOSE,RANDOM 110 mg/dL (74-106); SGOT/AST 22 U/L (15-37); SGPT/ALT 66 U/L (12-78); SODIUM 127 mmol/L (136-145)
[2017-07-01 14:17] LABS: ALK PHOS 103 U/L (45-117); TOT PROT 9.5 g/dl (6.4-8.2)
[2017-07-01] MEDS ORDERED: ACETAMINOPHEN 1000 MG/100 ML VIAL (NON FORMULARY) IVPB ONE (14:18)
[2017-07-01 14:36] LABS: POTASSIUM 7.7 mmol/L (3.5-5.1)
[2017-07-01] MEDS ORDERED: INSULIN REGULAR HUMAN 100 UNITS/ML *VIAL IVPUSH ONE (14:42)
[2017-07-01] MEDS ORDERED: ACETAMINOPHEN INJECTION 100 ML IVPB ONE (14:43)
[2017-07-01] MEDS ORDERED: DEXTROSE 50%-WATER - 25 GM/50 ML VIAL IVPUSH ONE (14:44)
[2017-07-01] MEDS ORDERED: DEXTROSE 5%-0.45% SALINE 1,000 ML IV SCH (14:45)
--- NOTE | 2017-07-01 15:04 | EKG ---
Test Reason : Blood Pressure : / mmHG Vent. Rate : 055 BPM Atrial Rate : 055 BPM P-R Int : 186 ms QRS Dur : 106 ms QT Int : 414 ms P-R-T Axes : 063 054 044 degrees QTc Int : 396 ms SINUS BRADYCARDIA WITH SINUS ARRHYTHMIA OTHERWISE NORMAL ECG WHEN COMPARED WITH ECG OF 28-JUN-2017 17:34, T WAVE INVERSION NO LONGER EVIDENT IN INFERIOR LEADS Confirmed by OSIRIS RODRIGUEZ, BEN ([id number]) on 07/01/2017 3:03:55 PM Referred By: Confirmed By:BEN NEWELL MD
[2017-07-01] MEDS ORDERED: CALCIUM GLUCONATE 10% - 1,000 MG/10 ML VIAL IVPUSH ONE (15:16)
[2017-07-01] MEDS ORDERED: CALCIUM GLUCONATE 10% - 1,000 MG/10 ML VIAL ONE (17:07)
[2017-07-01] MEDS ORDERED: INSULIN REGULAR HUMAN 100 UNITS/ML *VIAL ONE (17:08)
[2017-07-01] MEDS ORDERED: DEXTROSE 50%-WATER 25 GM/50 ML DISP.SYRIN ONE (17:08)
[2017-07-01 19:04] LABS: ANION GAP 12 (8-16); BLOOD UREA NITROGEN 47 mg/dL (7-18); CALCIUM 9.7 mg/dL (8.5-10.1); CHLORIDE 104 mmol/L (98-107); CO2 16 mmol/L (21-32); CREATININE 2.1 mg/dL (0.7-1.3); GLUCOSE,RANDOM 80 mg/dL (74-106); POTASSIUM 5.6 mmol/L (3.5-5.1); SODIUM 132 mmol/L (136-145)
--- NOTE | 2017-07-01 19:16 | HP ---
Admitting History and Physical - Primary Care Physician PCP: Akila Garcia - Admission Chief Complaint: abdominal pain History of Present Illness: 42 yo M with h/o HTN, anemia, leukopenia, IVDA, opioid dependence on methadone maintenance, cocaine dependence, xanax dependence, nicotine dependence, Hep C, h /o perforated appendix rupture s/p multiple abdominal procedures colostomy (2014 ) BIBA from [facility] for abdominal pain. Patient with 1 day of unremitting, sharp, lower-mid predominant abdominal pain and hypotension with multiple low BP readings. No identifable triggers or alleviators. Beginning yesterday evening. Also endorses vomiting with bilious, non bloody emesis ( unknown amount of times), decreased appetite and loose liquid drainage per colostomy. No blood visualized. Last detox ( 04/23-04/27/17) - Past Medical History Cardiovascular: Yes: HTN - Smoking History Smoking history: Current every day smoker Have you smoked in the past 12 months: Yes Aproximately how many cigarettes per day: 20 - Alcohol/Substance Use Hx Alcohol Use: No Home Medications - Allergies Allergies/Adverse Reactions: Allergies Allergy/AdvReac Type Severity Reaction Status Date / Time No Known Allergies Allergy Verified 06/28/17 15:25 - Home Medications Home Medications: Ambulatory Orders Buspirone HCl [Buspar -] 10 mg PO BID #30 tablet 01/02/17 Enalapril Maleate [Vasotec -] 10 mg PO DAILY #30 tablet 01/05/17 Olanzapine [Zyprexa -] 5 mg PO BID 06/28/17 Vitamins (Sjr) - 1 tab PO DAILY #30 tablet 07/03/17 Thiamine HCl [Vitamin B1 -] 100 mg PO HS #30 tablet 07/03/17 Family Disease History - Family Disease History Family Disease History: Diabetes: Father, Mother, Heart Disease: Father, Mother , Other: Grandparent (Alzheimer's Disease.) Physical Examination Vital Signs: Vital Signs Temperature 98.0 F 07/01/17 11:41 Pulse Rate 59 L 07/01/17 17:48 Respiratory Rate 18 07/01/17 17:48 Blood Pressure 107/60 07/01/17 17:48 O2 Sat by Pulse Oximetry (%) 100 07/01/17 17:48 Constitutional: Yes: No Distress HENT: Yes: Atraumatic Neck: Yes: Supple Cardiovascular: Yes: Regular Rate and Rhythm Respiratory: Yes: CTA Bilaterally Gastrointestinal: Yes: Other (colostomy in place) Extremities: Yes: WNL Neurological: Yes: Alert, Oriented Labs: CBC, BMP 07/01/17 13:05 07/01/17 18:20 Problem List - Problems (1) Hyperkalemia Assessment/Plan: ivf renal consult Code(s): E87.5 - HYPERKALEMIA (2) Cocaine dependence, uncomplicated Code(s): F14.20 - COCAINE DEPENDENCE, UNCOMPLICATED (3) Dehydration Assessment/Plan: on ivf...cr improving Code(s): E86.0 - DEHYDRATION (4) Hypotension Assessment/Plan: bp stable Code(s): I95.9 - HYPOTENSION, UNSPECIFIED (5) Intravenous drug user Assessment/Plan: on methadone Code(s): F19.90 - OTHER PSYCHOACTIVE SUBSTANCE USE, UNSPECIFIED, UNCOMPLICATED (6) Nicotine dependence Code(s): F17.200 - NICOTINE DEPENDENCE, UNSPECIFIED, UNCOMPLICATED Qualifiers: (7) Substance induced mood disorder Code(s): F19.94 - OTH PSYCHOACTIVE SUBSTANCE USE, UNSP W MOOD DISORDER (8) Colostomy in place Assessment/Plan: functioning well Code(s): Z93.3 - COLOSTOMY STATUS (9) Diabetes mellitus type II, controlled Assessment/Plan: will check bgms Code(s): E11.9 - TYPE 2 DIABETES MELLITUS WITHOUT COMPLICATIONS Qualifiers: (10) Hepatitis C Code(s): B19.20 - UNSPECIFIED VIRAL HEPATITIS C WITHOUT HEPATIC COMA Qualifiers: Viral hepatitis chronicity: chronic (11) YARELI (acute kidney injury) Assessment/Plan: iv hydration Code(s): N17.9 - ACUTE KIDNEY FAILURE, UNSPECIFIED Assessment/Plan Laboratory Tests 07/01/17 07/01/17 07/01/17 13:05 13:05 13:40 WBC 9.7 D RBC 4.67 D Hgb 12.9 D Hct 38.1 D MCV 81.7 MCH 27.5 MCHC 33.7 RDW 16.4 H Plt Count 345 D MPV 7.7 Neutrophils % 82.1 Lymphocytes % 13.0 Monocytes % 4.3 Eosinophils % 0.2 Basophils % 0.4 PT with INR Cancelled INR Cancelled Sodium Potassium Chloride Carbon Dioxide Anion Gap BUN Creatinine Creat Clearance w eGFR Random Glucose Lactic Acid 1.8 Calcium Total Bilirubin AST ALT Alkaline Phosphatase Creatine Kinase Troponin I Total Protein Albumin 07/01/17 07/01/17 13:40 18:20 WBC RBC Hgb Hct MCV MCH MCHC RDW Plt Count MPV Neutrophils % Lymphocytes % Monocytes % Eosinophils % Basophils % PT with INR INR Sodium 127 L 132 L Potassium 7.7 H* 5.6 H D Chloride 103 104 Carbon Dioxide 15 L 16 L Anion Gap 9 12 BUN 44 H 47 H Creatinine 2.3 H 2.1 H Creat Clearance w eGFR 31.65 Random Glucose 110 H 80 D Lactic Acid Calcium 9.2 9.7 Total Bilirubin 0.3 D AST 22 ALT 66 Alkaline Phosphatase 103 Creatine Kinase 46 Troponin I < 0.02 Total Protein 9.5 H D Albumin 4.1 D Active Medications Generic Name Dose Route Start Last Admin Trade Name Freq PRN Reason Stop Dose Admin Dextrose/Sodium Chloride 1,000 mls @ 100 mls/hr 07/01/17 14:45 D5-1/2ns - IV ASDIR ANTOINETTE
[2017-07-01] MEDS ORDERED: HYDROmorphone HCL CARPU-JECT 1 MG/1 ML DISP.SYRIN IVPB PRN (19:19)
[2017-07-01] MEDS: SODIUM CHLORIDE 1,000 ML IV SCH (19:32)
--- NOTE | 2017-07-01 19:34 | CONSULT ---
Consult Consult Specialty:: Surgery Referred by:: Reason for Consultation:: Abdominal pain, - History of Present Illness History of Present Illness: 07/01/17 13:53 Mr Hernandez is a 42 yo M with a h/o HTN, anemia, IVDA, opioid dependence on methadone maintenance, cocaine dependence, xanax dependence, nicotine dependence , Hep C, h/o perforated appendix rupture s/p multiple abdominal procedures, s/p colostomy (2014) . Sent from [facility] due to diffuse abdominal pain, nausea and vomiting Pt was hypotensive at [facility] since yesterday afternoon In the ER, normotensive No fevers or chills - History Source History Provided By: Patient Limitations to Obtaining History: No Limitations - Past Medical History Cardio/Vascular: Yes: HTN Gastrointestinal: Yes: Other (Colitis, s/p Colostomy, Vague midabdominal pain, s /p appendectomy with multiple complications , operated a few years ago in [place]..) Hepatobiliary: Yes: Hepatitis C - Past Surgical History Past Surgical History: Yes: Colostomy - Alcohol/Substance Use Hx Alcohol Use: No - Smoking History Smoking history: Current every day smoker Have you smoked in the past 12 months: Yes Aproximately how many cigarettes per day: 20 Home Medications - Allergies Allergies/Adverse Reactions: Allergies Allergy/AdvReac Type Severity Reaction Status Date / Time No Known Allergies Allergy Verified 06/28/17 15:25 - Home Medications Home Medications: Ambulatory Orders Buspirone HCl [Buspar -] 10 mg PO BID #30 tablet 01/02/17 Enalapril Maleate [Vasotec -] 10 mg PO DAILY #30 tablet 01/05/17 Olanzapine [Zyprexa -] 5 mg PO BID 06/28/17 Family Disease History - Family Disease History Family Disease History: Diabetes: Father, Mother, Heart Disease: Father, Mother , Other: Grandparent (Alzheimer's Disease.) Physical Exam Vital Signs: Vital Signs Temperature 98.0 F 07/01/17 11:41 Pulse Rate 59 L 07/01/17 17:48 Respiratory Rate 18 07/01/17 17:48 Blood Pressure 107/60 07/01/17 17:48 O2 Sat by Pulse Oximetry (%) 100 07/01/17 17:48 Gastrointestinal: Yes: Hernia (Very large reducible abdominal hernia, with multiple abdominal scars, and acolostomy with stoold in left side of abdomen.) Labs: CBC, BMP 07/01/17 13:05 07/01/17 18:20 Imaging - Results Cat Scan: Report Reviewed, Image Reviewed Problem List - Problems (1) Nausea & vomiting Code(s): R11.2 - NAUSEA WITH VOMITING, UNSPECIFIED Qualifiers: Vomiting Intractability: unspecified (2) S/P colostomy Code(s): Z93.3 - COLOSTOMY STATUS (3) Hyperkalemia Code(s): E87.5 - HYPERKALEMIA (4) Cocaine dependence, uncomplicated Code(s): F14.20 - COCAINE DEPENDENCE, UNCOMPLICATED (5) Hepatitis C Code(s): B19.20 - UNSPECIFIED VIRAL HEPATITIS C WITHOUT HEPATIC COMA Qualifiers: Viral hepatitis chronicity: chronic (6) Abdominal hernia with obstruction and without gangrene Code(s): K46.0 - UNSP ABDOMINAL HERNIA WITH OBSTRUCTION, WITHOUT GANGRENE Assessment/Plan No acute abdominal condition at this time. Functioning colostomy. No abdominal distention. Continue oral feeding with liquids. Stool culture is pending. Renal dysfunction , ? prerenal, Hydrate , IV in progress. hyperkalemia.
[2017-07-01] MEDS ORDERED: ONDANSETRON 4 MG/2 ML VIAL IVPB PRN (19:51)
[2017-07-01 20:39] VITALS: BMI 20.5
[2017-07-01] MEDS: HEPARIN NA (PORCINE) 5,000 UNITS/ML 1ML VIAL SQ SCH (22:00)
[2017-07-02] MEDS: SODIUM CHLORIDE 1,000 ML IV SCH (00:39)
[2017-07-02] MEDS: morphine SULFATE 4 MG/ML VIAL IVPB PRN ×2 (00:40→11:07)
[2017-07-02] MEDS ORDERED: morphine SULFATE 4 MG/ML VIAL IVPUSH ONE (02:38)
[2017-07-02 07:51] LABS: BASO % 0.6 % (0-2.0); EOS % 1.8 % (0-4.5); LYMPH % 31.7 % (8-40); MCH 27.4 pg (25.7-33.7); MCHC 33.2 g/dl (32.0-35.9); MEAN CELL VOLUME 82.5 fl (80-96); MEAN PLT VOLUME 7.8 fl (7.5-11.1); NEUT % 57.9 % (42.8-82.8); PLATELET COUNT 273 K/MM3 (134-434); RBC 4.37 M/mm3 (4.00-5.60); RDW 16.3 % (11.9-15.9); WHITE BLOOD COUNT 5.4 K/mm3 (4.0-10.0)
[2017-07-02 08:01] LABS: CHLORIDE 104 mmol/L (98-107); POTASSIUM 5.2 mmol/L (3.5-5.1); SODIUM 132 mmol/L (136-145)
[2017-07-02 08:19] LABS: ALBUMIN 3.7 g/dl (3.4-5.0); ALK PHOS 88 U/L (45-117); ANION GAP 10 (8-16); BILIRUBIN,TOTAL 0.6 mg/dL (0.2-1.0); BLOOD UREA NITROGEN 42 mg/dL (7-18); CALCIUM 9.5 mg/dL (8.5-10.1); CO2 18 mmol/L (21-32); CREATININE 1.4 mg/dL (0.7-1.3); GLUCOSE,RANDOM 89 mg/dL (74-106); SGOT/AST 12 U/L (15-37); SGPT/ALT 48 U/L (12-78); TOT PROT 8.6 g/dl (6.4-8.2)
--- NOTE | 2017-07-02 09:03 | PN ---
Progress Note, Physician - Current Medication List Current Medications: Active Medications Heparin Sodium (Porcine) (Heparin -) 5,000 unit SQ BID [facility] Last Admin: 07/01/17 22:00 Dose: Not Given Sodium Chloride (Normal Saline -) 1,000 mls @ 100 mls/hr IV ASDIR [facility] Last Admin: 07/02/17 00:39 Dose: 100 mls/hr Morphine Sulfate (Morphine Sulfate) 2 mg IVPB Q4H PRN PRN Reason: PAIN SCALE 4-6 Last Admin: 07/02/17 00:40 Dose: 2 mg Ondansetron HCl (Zofran Injection) 4 mg IVPB Q4H PRN PRN Reason: NAUSEA AND/OR VOMITING - Objective Vital Signs: Vital Signs Temperature 97.6 F 07/01/17 20:18 Pulse Rate 63 07/01/17 20:18 Respiratory Rate 20 07/01/17 20:18 Blood Pressure 106/65 07/01/17 20:18 O2 Sat by Pulse Oximetry (%) 100 07/01/17 20:18 Labs: CBC, BMP 07/02/17 06:15 07/02/17 06:15 INR, PTT INR Cancelled 07/01/17 13:05 Problem List - Problems (1) Nausea & vomiting Code(s): R11.2 - NAUSEA WITH VOMITING, UNSPECIFIED Qualifiers: Vomiting Intractability: unspecified (2) S/P colostomy Code(s): Z93.3 - COLOSTOMY STATUS (3) Hyperkalemia Code(s): E87.5 - HYPERKALEMIA (4) Cocaine dependence, uncomplicated Code(s): F14.20 - COCAINE DEPENDENCE, UNCOMPLICATED (5) Hepatitis C Code(s): B19.20 - UNSPECIFIED VIRAL HEPATITIS C WITHOUT HEPATIC COMA Qualifiers: Viral hepatitis chronicity: chronic (6) Abdominal hernia with obstruction and without gangrene Code(s): K46.0 - UNSP ABDOMINAL HERNIA WITH OBSTRUCTION, WITHOUT GANGRENE Assessment/Plan Patient has no abdominal pain, colostomy is functioning. He has no nausea, no vomiting. He is tolerating oral feeding. Has no acute surgical condition. Large abdominal ventral hernia , with multiple, surgical scars. Will sign off.
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
[2017-07-02] MEDS: HEPARIN NA (PORCINE) 5,000 UNITS/ML 1ML VIAL SQ SCH ×2 (11:08→22:51)
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
--- NOTE | 2017-07-02 13:39 | CONSULT ---
Consult Detox [facility] Reason for Current Admission/Consult: substance use Referred by:: andrey calzada - History History of Present Illness: 42 yo m with h/o OUD and benzodiazepine dependence on Day 3 of detox transferred to [facility] for evaluation because of increasing abdo pain and k.6.2, h/o colostomy, and kim. - Alcohol/Substance Use Hx Alcohol Use: No - Past Medical History Cardio/Vascular: Yes: HTN Gastrointestinal: Yes: Other (Colitis, s/p Colostomy, Vague midabdominal pain, s /p appendectomy with multiple complications , operated a few years ago in [place]..) Hepatobiliary: Yes: Hepatitis C - Past Surgical History Past Surgical History: Yes: Colostomy Assessment Plan - Diagnosis (1) Hyperkalemia Status: Acute (2) Cocaine dependence, uncomplicated Status: Acute (3) Intravenous drug user Status: Acute (4) Nicotine dependence Status: Acute Qualifiers: (5) Opioid dependence with withdrawal Status: Acute (6) S/P colostomy Status: Acute (7) Sedative, hypnotic or anxiolytic dependence with withdrawal, uncomplicated Status: Acute (8) Substance induced mood disorder Status: Acute (9) Substance-induced sleep disorder Status: Acute (10) Diabetes mellitus type II, controlled Status: Chronic Qualifiers: (11) Hepatitis C Status: Chronic Qualifiers: Viral hepatitis chronicity: chronic (12) Hypertension Status: Chronic Qualifiers: Hypertension type: essential hypertension Qualified Code(s): I10 - Essential (primary) hypertension (13) History of appendectomy Status: Resolved - Plan Plan: chart imagain, labs reviewed. Will slow down detox as patient is medically unstable, would not use morphine in a [atient with renal failure for pain management as active methabolites may accumulate and cuase oversdeation. fluids , vitamins ordered. [facility] to [facility] detox when medically cleared, consider rehab if he completes detox while at [facility]. - Medication Detox Regimen/Protocol: Methadone/Valium
[2017-07-02] MEDS ORDERED: diazePAM 5 MG TABLET PO PRN (13:43)
[2017-07-02] MEDS ORDERED: diazePAM 5 MG TABLET PO ONE (13:43)
[2017-07-02] MEDS ORDERED: METHADONE HCL 10 MG TABLET PO ONE ×2 (13:43→23:00)
[2017-07-02] MEDS ORDERED: ONDANSETRON *ODT* 4 MG TABLET SL PRN (13:51)
[2017-07-02] MEDS: diazePAM 5 MG TABLET PO SCH ×2 (14:35→22:51)
[2017-07-02 14:44] LABS: URINE APPEARANCE CLOUDY; URINE BILIRUBIN NEGATIVE (<2.0 mg/dL); URINE COLOR LTYELLOW; URINE GLUCOSE (UA) NEGATIVE (NEGATIVE); URINE KETONE NEGATIVE (NEGATIVE); URINE NITRITE NEGATIVE (NEGATIVE); URINE PROTEIN NEGATIVE (NEGATIVE); URINE UROBILINOGEN NEGATIVE mg/dL (0.2-1.0)
[2017-07-02 15:00] LABS: URINE LEUK ESTERASE 2+ (NEGATIVE)
[2017-07-02 15:15] LABS: URINE CREATININE 64.5 mg/dL (20-370)
[2017-07-02 15:32] LABS: EPI CELLS RARE /HPF (FEW); URIC ACID CRYSTALS FEW /hpf (NONE SEEN); URINE HYALINE CAST 1 /lpf
[2017-07-02 15:39] LABS: RATIO URIN PROTEIN/URIN CREAT 0.38 MG/DL
--- NOTE | 2017-07-02 19:23 | PN ---
Progress Note, Physician History of Present Illness: feeling good - Current Medication List Current Medications: Active Medications Diazepam (Valium -) 5 mg PO BID [facility] Stop: 07/05/17 22:01 Diazepam (Valium -) 5 mg PO TID [facility] Stop: 07/03/17 22:01 Last Admin: 07/02/17 14:35 Dose: Not Given Diazepam (Valium -) 5 mg PO DAILY [facility] Stop: 07/06/17 10:01 Diazepam (Valium -) 10 mg PO Q4H PRN PRN Reason: WITHDRAWAL(CONT SUBST) Stop: 07/05/17 13:43 Heparin Sodium (Porcine) (Heparin -) 5,000 unit SQ BID [facility] Last Admin: 07/02/17 11:08 Dose: 5,000 unit Sodium Chloride (Normal Saline -) 1,000 mls @ 100 mls/hr IV ASDIR [facility] Last Admin: 07/02/17 00:39 Dose: 100 mls/hr Methadone HCl (Dolophine -) 10 mg PO ONCE@2300 ONE Stop: 07/02/17 23:01 Methadone HCl (Dolophine -) 10 mg PO DAILY [facility] Stop: 07/06/17 10:01 Methadone HCl (Dolophine -) 15 mg PO DAILY [facility] Stop: 07/05/17 10:01 Methadone HCl (Dolophine -) 20 mg PO DAILY [facility] Stop: 07/03/17 10:01 Methadone HCl (Dolophine -) 5 mg PO DAILY@0600 [facility] Stop: 07/07/17 06:01 Ondansetron HCl (Zofran Odt -) 8 mg SL Q6H PRN PRN Reason: NAUSEA AND/OR VOMITING Multivit/Folic Acid/Iron ( Vitamins (Sjr) -) 1 tab PO DAILY [facility] Thiamine HCl (Vitamin B1 -) 100 mg PO [facility] - Objective Vital Signs: Vital Signs Temperature 97.4 F L 07/02/17 17:25 Pulse Rate 64 07/02/17 17:25 Respiratory Rate 20 07/02/17 17:25 Blood Pressure 111/62 07/02/17 17:25 O2 Sat by Pulse Oximetry (%) 100 07/02/17 09:00 Constitutional: Yes: No Distress HENT: Yes: Atraumatic Neck: Yes: Supple Cardiovascular: Yes: Regular Rate and Rhythm Respiratory: Yes: CTA Bilaterally Gastrointestinal: Yes: Other (colostomy in place) Extremities: Yes: WNL Neurological: Yes: Alert, Oriented Labs: CBC, BMP 07/02/17 06:15 07/02/17 06:15 INR, PTT INR Cancelled 07/01/17 13:05 Problem List - Problems (1) Hyperkalemia Assessment/Plan: resolving Code(s): E87.5 - HYPERKALEMIA (2) Cocaine dependence, uncomplicated Code(s): F14.20 - COCAINE DEPENDENCE, UNCOMPLICATED (3) Dehydration Assessment/Plan: on ivf...cr improving Code(s): E86.0 - DEHYDRATION (4) Hypotension Assessment/Plan: bp stable Code(s): I95.9 - HYPOTENSION, UNSPECIFIED (5) Intravenous drug user Assessment/Plan: on methadone Code(s): F19.90 - OTHER PSYCHOACTIVE SUBSTANCE USE, UNSPECIFIED, UNCOMPLICATED (6) Nicotine dependence Code(s): F17.200 - NICOTINE DEPENDENCE, UNSPECIFIED, UNCOMPLICATED Qualifiers: (7) Substance induced mood disorder Code(s): F19.94 - OTH PSYCHOACTIVE SUBSTANCE USE, UNSP W MOOD DISORDER (8) Colostomy in place Code(s): Z93.3 - COLOSTOMY STATUS (9) Diabetes mellitus type II, controlled Code(s): E11.9 - TYPE 2 DIABETES MELLITUS WITHOUT COMPLICATIONS Qualifiers: (10) Hepatitis C Code(s): B19.20 - UNSPECIFIED VIRAL HEPATITIS C WITHOUT HEPATIC COMA Qualifiers: Viral hepatitis chronicity: chronic
--- NOTE | 2017-07-02 19:29 | PN ---
Teaching Attending Note Name of Resident: Pablo Barros (Nephrology) ATTENDING PHYSICIAN STATEMENT I saw and evaluated the patient. I reviewed the resident's note and discussed the case with the resident. I agree with the resident's findings and plan as documented. Nephrology Pt seen and examined at bedside earlier today. I was asked to see him for YARELI and hyperkalemia. He presented to the ER with abdominal pain, vomiting and increased output from his ostomy. He denies history of CKD. pmhx ivda hep c pshx ruptured appendix and colostomy nkda social hx ivda ros abd pain improved Current Medications Generic Name Dose Route Start Last Admin Trade Name Freq PRN Reason Stop Dose Admin Diazepam 5 mg 07/04/17 10:00 Valium - PO 07/05/17 22:01 BID ANTOINETTE Diazepam 5 mg 07/02/17 14:00 07/02/17 14:35 Valium - PO 07/03/17 22:01 Not Given TID ANTOINETTE Diazepam 5 mg 07/06/17 10:00 Valium - PO 07/06/17 10:01 DAILY ANTOINETTE Diazepam 10 mg 07/02/17 13:43 Valium - PO 07/05/17 13:43 Q4H PRN WITHDRAWAL(CONT SUBST) Heparin Sodium (Porcine) 5,000 unit 07/01/17 22:00 07/02/17 11:08 Heparin - SQ 5,000 unit BID ANTOINETTE Administration Sodium Chloride 1,000 mls @ 100 mls/hr 07/01/17 19:30 07/02/17 00:39 Normal Saline - IV 100 mls/hr ASDIR ANTOINETTE Administration Methadone HCl 10 mg 07/02/17 23:00 Dolophine - PO 07/02/17 23:01 ONCE@2300 ONE Methadone HCl 10 mg 07/06/17 10:00 Dolophine - PO 07/06/17 10:01 DAILY ANTOINETTE Methadone HCl 15 mg 07/04/17 10:00 Dolophine - PO 07/05/17 10:01 DAILY ANTOINETTE Methadone HCl 20 mg 07/03/17 10:00 Dolophine - PO 07/03/17 10:01 DAILY ANTOINETTE Methadone HCl 5 mg 07/07/17 06:00 Dolophine - PO 07/07/17 06:01 DAILY@0600 ANTOINETTE Ondansetron HCl 8 mg 07/02/17 13:51 Zofran Odt - SL Q6H PRN NAUSEA AND/OR VOMITING Multivit/Folic Acid/Iron 1 tab 07/03/17 10:00 Vitamins (Sjr) - PO DAILY [facility] Thiamine HCl 100 mg 07/02/17 22:00 Vitamin B1 - PO HS [facility] Laboratory Tests 07/01/17 07/01/17 07/02/17 13:40 18:20 06:15 Potassium 7.7 H* 5.6 H D 5.2 H Creatinine 2.3 H 2.1 H 1.4 H D cardio s1s2 pulm clear GI colostomy, surgical scars, pos bowel sounds ext neg edema skin tatoos neuro awake and alert Impression 1. YARELI 2. hyperkalemia 3. hep c 4. IVDA 5. hyponatremia 6. vomiting 7. abdominal pain Plan - likely yareli from prerenal disease, this can lead to ATN when severe which is what he may have - cont with fluids - renal function is improving - sodium is stabilizing - potassium has improved - will follow Dr Downey
[2017-07-02] MEDS ORDERED: THIAMINE HCL 100 MG TABLET (FP) PO SCH (22:00)
[2017-07-03] MEDS: diazePAM 5 MG TABLET PO SCH ×2 (05:48→13:48)
[2017-07-03] MEDS: SODIUM CHLORIDE 1,000 ML IV SCH (07:25)
[2017-07-03 08:03] LABS: BASO % 0.7 % (0-2.0); EOS % 3.2 % (0-4.5); HEMATOCRIT 31.9 % (35.4-49); HEMOGLOBIN 10.7 GM/dL (11.7-16.9); LYMPH % 50.9 % (8-40); MCH 27.4 pg (25.7-33.7); MCHC 33.4 g/dl (32.0-35.9); MEAN CELL VOLUME 82.1 fl (80-96); MEAN PLT VOLUME 7.5 fl (7.5-11.1); MONO % 9.5 % (3.8-10.2); NEUT % 35.7 % (42.8-82.8); PLATELET COUNT 221 K/MM3 (134-434); RBC 3.89 M/mm3 (4.00-5.60); RDW 16.1 % (11.9-15.9); WHITE BLOOD COUNT 3.7 K/mm3 (4.0-10.0)
[2017-07-03 08:46] LABS: CHLORIDE 107 mmol/L (98-107); POTASSIUM 4.8 mmol/L (3.5-5.1); SODIUM 135 mmol/L (136-145)
[2017-07-03 08:53] LABS: ALBUMIN 3.5 g/dl (3.4-5.0); ALK PHOS 75 U/L (45-117); ANION GAP 7 (8-16); BILIRUBIN,TOTAL 0.4 mg/dL (0.2-1.0); BLOOD UREA NITROGEN 37 mg/dL (7-18); CALCIUM 8.9 mg/dL (8.5-10.1); CO2 21 mmol/L (21-32); CREATININE 0.9 mg/dL (0.7-1.3); GLUCOSE,RANDOM 71 mg/dL (74-106); SGOT/AST 11 U/L (15-37); SGPT/ALT 33 U/L (12-78); TOT PROT 8.1 g/dl (6.4-8.2)
[2017-07-03] MEDS ORDERED: METHADONE HCL 10 MG TABLET PO SCH (10:00)
[2017-07-03] MEDS ORDERED: PRENATAL VITAMINS W/ FOLIC ACID TABLET (FP) PO SCH (10:00)
[2017-07-03] MEDS ORDERED: PT OWN MED DRAWER 7, Y5N ONE (10:17)
[2017-07-03] MEDS: HEPARIN NA (PORCINE) 5,000 UNITS/ML 1ML VIAL SQ SCH (10:20)
--- NOTE | 2017-07-03 11:58 | PN ---
Progress Note, Physician History of Present Illness: patient doing well no issues comfortable - Current Medication List Current Medications: Active Medications Diazepam (Valium -) 5 mg PO BID [facility] Stop: 07/05/17 22:01 Diazepam (Valium -) 5 mg PO TID [facility] Stop: 07/03/17 22:01 Last Admin: 07/03/17 05:48 Dose: 5 mg Diazepam (Valium -) 5 mg PO DAILY [facility] Stop: 07/06/17 10:01 Diazepam (Valium -) 10 mg PO Q4H PRN PRN Reason: WITHDRAWAL(CONT SUBST) Stop: 07/05/17 13:43 Heparin Sodium (Porcine) (Heparin -) 5,000 unit SQ BID [facility] Last Admin: 07/03/17 10:20 Dose: 5,000 unit Sodium Chloride (Normal Saline -) 1,000 mls @ 100 mls/hr IV ASDIR [facility] Last Admin: 07/03/17 07:25 Dose: Not Given Methadone HCl (Dolophine -) 10 mg PO DAILY [facility] Stop: 07/06/17 10:01 Methadone HCl (Dolophine -) 15 mg PO DAILY [facility] Stop: 07/05/17 10:01 Methadone HCl (Dolophine -) 5 mg PO DAILY@0600 [facility] Stop: 07/07/17 06:01 Ondansetron HCl (Zofran Odt -) 8 mg SL Q6H PRN PRN Reason: NAUSEA AND/OR VOMITING Multivit/Folic Acid/Iron ( Vitamins (Sjr) -) 1 tab PO DAILY [facility] Last Admin: 07/03/17 10:21 Dose: 1 tab Thiamine HCl (Vitamin B1 -) 100 mg PO HS [facility] Last Admin: 07/02/17 22:51 Dose: 100 mg - Objective Vital Signs: Vital Signs Temperature 98.8 F 07/03/17 10:11 Pulse Rate 60 07/03/17 10:11 Respiratory Rate 20 07/03/17 10:11 Blood Pressure 107/58 07/03/17 10:11 O2 Sat by Pulse Oximetry (%) 100 07/02/17 21:00 Constitutional: Yes: No Distress, Calm Cardiovascular: Yes: Regular Rate and Rhythm Respiratory: Yes: Regular, CTA Bilaterally Gastrointestinal: Yes: Normal Bowel Sounds, Soft, Other (multiple hernia) Musculoskeletal: Yes: WNL Extremities: Yes: WNL Neurological: Yes: Alert, Oriented Psychiatric: Yes: Alert, Oriented Labs: CBC, BMP 07/03/17 07:30 07/03/17 07:20 INR, PTT INR Cancelled 07/01/17 13:05 Assessment/Plan 42 yo M admitted to the hospital for intractable n/v, abd pain and hypotension. nausea and vomiting Abdominal pain IVGU with multiple drug dependence s/p Colostomy Hep C Hyperkalemia Hyponatremia YARELI plan await for cx results and cdiff results if all results are negative patient can be discharged
[2017-07-03 12:18] LABS: OSMOLALITY,SERUM 293 mosm/kg (278-305)
[2017-07-03] MEDS ORDERED: SODIUM CHLORIDE 1,000 ML IV SCH (14:48)
--- NOTE | 2017-07-03 14:48 | PN ---
Progress Note, Physician History of Present Illness: Pt seen and examined at bedside. He is tolerating diet. He denies shortness of breath. - Current Medication List Current Medications: Active Medications Diazepam (Valium -) 5 mg PO BID [facility] Stop: 07/05/17 22:01 Diazepam (Valium -) 5 mg PO TID [facility] Stop: 07/03/17 22:01 Last Admin: 07/03/17 13:48 Dose: 5 mg Diazepam (Valium -) 5 mg PO DAILY [facility] Stop: 07/06/17 10:01 Heparin Sodium (Porcine) (Heparin -) 5,000 unit SQ BID [facility] Last Admin: 07/03/17 10:20 Dose: 5,000 unit Sodium Chloride (Normal Saline -) 1,000 mls @ 100 mls/hr IV ASDIR [facility] Last Admin: 07/03/17 07:25 Dose: Not Given Methadone HCl (Dolophine -) 10 mg PO DAILY [facility] Stop: 07/06/17 10:01 Methadone HCl (Dolophine -) 15 mg PO DAILY [facility] Stop: 07/05/17 10:01 Methadone HCl (Dolophine -) 5 mg PO DAILY@0600 [facility] Stop: 07/07/17 06:01 Ondansetron HCl (Zofran Odt -) 8 mg SL Q6H PRN PRN Reason: NAUSEA AND/OR VOMITING Multivit/Folic Acid/Iron ( Vitamins (Sjr) -) 1 tab PO DAILY [facility] Last Admin: 07/03/17 10:21 Dose: 1 tab Thiamine HCl (Vitamin B1 -) 100 mg PO HS [facility] Last Admin: 07/02/17 22:51 Dose: 100 mg - Objective Vital Signs: Vital Signs Temperature 98.8 F 07/03/17 10:11 Pulse Rate 60 07/03/17 10:11 Respiratory Rate 20 07/03/17 10:11 Blood Pressure 107/58 07/03/17 10:11 O2 Sat by Pulse Oximetry (%) 100 07/03/17 09:00 Constitutional: Yes: Calm Eyes: Yes: Conjunctiva Clear HENT: Yes: Atraumatic Neck: Yes: Supple Cardiovascular: Yes: S1, S2 Respiratory: Yes: CTA Bilaterally Gastrointestinal: Yes: Soft, Hernia, Other (colostomy) Genitourinary: Yes: WNL Musculoskeletal: Yes: WNL Integumentary: Yes: Tattoos Neurological: Yes: Oriented Psychiatric: Yes: Oriented Labs: CBC, BMP 07/03/17 07:30 07/03/17 07:20 INR, PTT INR Cancelled 07/01/17 13:05 Problem List - Problems (1) YARELI (acute kidney injury) Code(s): N17.9 - ACUTE KIDNEY FAILURE, UNSPECIFIED (2) Hyperkalemia Code(s): E87.5 - HYPERKALEMIA Assessment/Plan Current Medications Generic Name Dose Route Start Last Admin Trade Name Freq PRN Reason Stop Dose Admin Diazepam 5 mg 07/04/17 10:00 Valium - PO 07/05/17 22:01 BID ANTOINETTE Diazepam 5 mg 07/02/17 14:00 07/03/17 13:48 Valium - PO 07/03/17 22:01 5 mg TID ANTOINETTE Administration Diazepam 5 mg 07/06/17 10:00 Valium - PO 07/06/17 10:01 DAILY [facility] Heparin Sodium (Porcine) 5,000 unit 07/01/17 22:00 07/03/17 10:20 Heparin - SQ 5,000 unit BID ANTOINETTE Administration Sodium Chloride 1,000 mls @ 100 mls/hr 07/01/17 19:30 07/03/17 07:25 Normal Saline - IV Not Given ASDIR [facility] Methadone HCl 10 mg 07/06/17 10:00 Dolophine - PO 07/06/17 10:01 DAILY [facility] Methadone HCl 15 mg 07/04/17 10:00 Dolophine - PO 07/05/17 10:01 DAILY [facility] Methadone HCl 5 mg 07/07/17 06:00 Dolophine - PO 07/07/17 06:01 DAILY@0600 [facility] Ondansetron HCl 8 mg 07/02/17 13:51 Zofran Odt - SL Q6H PRN NAUSEA AND/OR VOMITING Multivit/Folic Acid/Iron 1 tab 07/03/17 10:00 07/03/17 10:21 Vitamins (Sjr) - PO 1 tab DAILY ANTOINETTE Administration Thiamine HCl 100 mg 07/02/17 22:00 07/02/17 22:51 Vitamin B1 - PO 100 mg HS ANTOINETTE Administration Impression 1. YARELI 2. hyperkalemia 3. hep c 4. IVDA 5. hyponatremia 6. vomiting 7. abdominal pain Impression - cont fluids - can decrease rate - renal function is improving - potassium stable - repeat labs in am - surgery follow up Dr Downey
[2017-07-03 15:00] VITALS: TEMP 98.1
[2017-07-03 17:28] VITALS: BP 111/52; PULSE 67
--- NOTE | 2017-07-03 17:36 | PN ---
Progress Note, Physician History of Present Illness: doing well - Current Medication List Current Medications: Active Medications Diazepam (Valium -) 5 mg PO BID [facility] Stop: 07/05/17 22:01 Diazepam (Valium -) 5 mg PO TID [facility] Stop: 07/03/17 22:01 Last Admin: 07/03/17 13:48 Dose: 5 mg Diazepam (Valium -) 5 mg PO DAILY [facility] Stop: 07/06/17 10:01 Heparin Sodium (Porcine) (Heparin -) 5,000 unit SQ BID [facility] Last Admin: 07/03/17 10:20 Dose: 5,000 unit Sodium Chloride (Normal Saline -) 1,000 mls @ 75 mls/hr IV ASDIR [facility] Last Admin: 07/03/17 15:06 Dose: 75 mls/hr Methadone HCl (Dolophine -) 10 mg PO DAILY [facility] Stop: 07/06/17 10:01 Methadone HCl (Dolophine -) 15 mg PO DAILY [facility] Stop: 07/05/17 10:01 Methadone HCl (Dolophine -) 5 mg PO DAILY@0600 [facility] Stop: 07/07/17 06:01 Ondansetron HCl (Zofran Odt -) 8 mg SL Q6H PRN PRN Reason: NAUSEA AND/OR VOMITING Multivit/Folic Acid/Iron ( Vitamins (Sjr) -) 1 tab PO DAILY [facility] Last Admin: 07/03/17 10:21 Dose: 1 tab Thiamine HCl (Vitamin B1 -) 100 mg PO HS [facility] Last Admin: 07/02/17 22:51 Dose: 100 mg - Objective Vital Signs: Vital Signs Temperature 98.1 F 07/03/17 17:28 Pulse Rate 67 07/03/17 17:28 Respiratory Rate 18 07/03/17 17:28 Blood Pressure 111/52 07/03/17 17:28 O2 Sat by Pulse Oximetry (%) 100 07/03/17 09:00 Constitutional: Yes: No Distress HENT: Yes: Atraumatic Neck: Yes: Supple Cardiovascular: Yes: Regular Rate and Rhythm Respiratory: Yes: CTA Bilaterally Gastrointestinal: Yes: Normal Bowel Sounds Extremities: Yes: WNL Neurological: Yes: Alert, Oriented Labs: CBC, BMP 07/03/17 07:30 07/03/17 07:20 INR, PTT INR Cancelled 07/01/17 13:05 Problem List - Problems (1) Hyperkalemia Assessment/Plan: resolved Code(s): E87.5 - HYPERKALEMIA (2) Cocaine dependence, uncomplicated Code(s): F14.20 - COCAINE DEPENDENCE, UNCOMPLICATED (3) Dehydration Assessment/Plan: on ivf...cr improving Code(s): E86.0 - DEHYDRATION (4) Hypotension Assessment/Plan: bp stable Code(s): I95.9 - HYPOTENSION, UNSPECIFIED (5) Intravenous drug user Code(s): F19.90 - OTHER PSYCHOACTIVE SUBSTANCE USE, UNSPECIFIED, UNCOMPLICATED (6) Nicotine dependence Code(s): F17.200 - NICOTINE DEPENDENCE, UNSPECIFIED, UNCOMPLICATED Qualifiers: (7) Substance induced mood disorder Code(s): F19.94 - OTH PSYCHOACTIVE SUBSTANCE USE, UNSP W MOOD DISORDER (8) Colostomy in place Assessment/Plan: functioning well Code(s): Z93.3 - COLOSTOMY STATUS (9) Diabetes mellitus type II, controlled Code(s): E11.9 - TYPE 2 DIABETES MELLITUS WITHOUT COMPLICATIONS Qualifiers: (10) Hepatitis C Code(s): B19.20 - UNSPECIFIED VIRAL HEPATITIS C WITHOUT HEPATIC COMA Qualifiers: Viral hepatitis chronicity: chronic (11) YARELI (acute kidney injury) Assessment/Plan: cr wnl Code(s): N17.9 - ACUTE KIDNEY FAILURE, UNSPECIFIED Assessment/Plan dr moran to give methadone prescription
[2017-07-04] MEDS ORDERED: diazePAM 5 MG TABLET PO SCH (10:00)
[2017-07-04] MEDS ORDERED: METHADONE HCL 5 MG TABLET PO SCH (10:00)
[2017-07-06] MEDS ORDERED: METHADONE HCL 10 MG TABLET PO SCH (10:00)
[2017-07-06] MEDS ORDERED: diazePAM 5 MG TABLET PO SCH (10:00)
[2017-07-07] MEDS ORDERED: METHADONE HCL 5 MG TABLET PO SCH (06:00)
== END 2017-07-03 18:49 | disposition left against medical advice (07) | DRG 460 ==
LOC: JER 11:41 → JERBED 15:42 → J8W 19:45
PROVIDERS: ADMIT Internal Medicine; ATTEND Internal Medicine
PROC: HZ2ZZZZ Detoxification Services for Substance Abuse Treatment (ICD-10-PCS; principal; 2017-07-02)
DX: N17.9 Acute kidney failure, unspecified (principal); F11.23 Opioid dependence with withdrawal; E87.1 Hypo-osmolality and hyponatremia; F14.20 Cocaine dependence, uncomplicated; F13.20 Sedative, hypnotic or anxiolytic dependence, uncomplicated; F19.94 Other psychoactive substance use, unspecified with psychoactive substance-induced mood disorder; E87.6 Hypokalemia; E86.0 Dehydration; I10 Essential (primary) hypertension; D72.819 Decreased white blood cell count, unspecified; D50.9 Iron deficiency anemia, unspecified; Z93.3 Colostomy status; R00.1 Bradycardia, unspecified; F17.210 Nicotine dependence, cigarettes, uncomplicated; E11.9 Type 2 diabetes mellitus without complications; B19.20 Unspecified viral hepatitis C without hepatic coma; K46.9 Unspecified abdominal hernia without obstruction or gangrene
CPT/HCPCS: 36415; 71045-TC-FY; 74176-TC; 76775-TC; 80048; 80053; 81003; 81015; 82436; 82550; 82570; 83605; 83930; 83935; 84133; 84156; 84300; 84484; 85025; 87040; 87324; 87449; 93005; 93010; 99283-25; J0131; J1644; J7030

== ENCOUNTER 2018-07-06 13:02 | Inpatient (IN) | payer OTHER | END 2018-07-10 14:43 | disposition home or self-care (01) | LOC: YASAS 13:02 → Y3N 15:27 ==

== ENCOUNTER 2018-10-05 09:45 | Inpatient (IN) | payer BC ==
[2018-10-05 11:56] VITALS: BMI 22.6
--- NOTE | 2018-10-05 12:51 | HP ---
COWS - Scale Resting Pulse: 0= [place] 80 or Below Sweatin=Flushed/Facial Moisture Restless Observation: 1= Difficult to Sit Still Pupil Size: 1= Pupils >than Normal Bone or Joint Aches: 2= Severe Diffuse Aches Runny Nose/ Eye Tearin= Runny Nose/Eyes GI Upset > 30mins: 1= Stomach Cramp Tremor Observation: 2= Slight Tremor Visible Yawning Observation: 1= 1-2x During Session Anxiety or Irritability: 2=Irritable/Anxious Goose Flesh Skin: 0=Smooth Skin COWS Score: 14 CIWA Score Nausea/Vomitin-Mild Nausea/No Vomiting Muscle Tremors: 3 Anxiety: 2 Agitation: 3 Paroxysmal Sweats: 2 Orientation: 0-Oriented Tacttile Disturbances: 0-None Auditory Disturbances: 0-None Visual Disturbances: 0-None Headache: 1-Very Mild CIWA-Ar Total Score: 12 - Admission Criteria [facility] Guidelines: Admission for Medically Managed Detox: Requires at least one of the followin. CIWA greater than 12 2. Seizures within the past 24 hours 3. Delirium tremens within the past 24 hours 4. Hallucinations within the past 24 hours 5. Acute intervention needed for co occurring medical disorder 6. Acute intervention needed for co occurring psychiatric disorder 7. Severe withdrawal that cannot be handled at a lower level of care (continued vomiting, continued diarrhea, abnormal vital signs) requiring intravenous medication and/or fluids 8. Patient presents the following: CIWA greater than 12, Acute intervention needed for co-occurring med or psych disorder Admission Criteria Met: Admission criteria met Admission ROS [facility] - [facility] Chief Complaint: I NEED HELP AND MY MOM MADE ME COME Allergies/Adverse Reactions: Allergies Allergy/AdvReac Type Severity Reaction Status Date / Time No Known Allergies Allergy Verified 10/05/18 11:43 - Ebola screening Have you traveled outside of the country in the last 21 days: No (N) Have you had contact with anyone from an Ebola affected area: No Have you been sick,other than usual withdrawal symptoms: No Do you have a fever: No - Review of Systems Constitutional: Loss of Appetite, Malaise EENT: reports: Nose Congestion Respiratory: reports: No Symptoms reported Cardiac: reports: No Symptoms Reported GI: reports: Nausea, Poor Appetite, Abdominal cramping : reports: No Symptoms Reported Musculoskeletal: reports: Muscle Pain Integumentary: reports: No Symptoms Reported Neuro: reports: Headache Endocrine: reports: No Symptoms Reported Hematology: reports: No Symptoms Reported Psychiatric: reports: Anxious Patient History - Patient Medical History Hx Anemia: Yes (Iron-deficiency tpye. No current meds.) Hx Asthma: No Hx Chronic Obstructive Pulmonary Disease (COPD): No Hx Cancer: No Hx Cardiac Disorders: No Hx Congestive Heart Failure: No Hx Hypertension: Yes (On med.) Hx Hypercholesterolemia: No Hx Pacemaker: No HX Cerebrovascular Accident: No Hx Seizures: No Hx Dementia: No Hx Diabetes: No Hx Gastrointestinal Disorders: No Hx Liver Disease: No Hx Genitourinary Disorders: No Hx Sexually Transmitted Disorders: No Hx Renal Disease (ESRD): No Hx Thyroid Disease: No Hx Human Immunodeficiency Virus (HIV): No (Last tested: approx. 3 months ago: NEGATIVE.) Hx Hepatitis C: Yes (Diagnosed in 2013.) Hx Depression: Yes Hx Suicide Attempt: Yes (pill overdose at age 21; PATIENT DENIES CURRENT SI / HI.) Hx Bipolar Disorder: No Hx Schizophrenia: No - Patient Surgical History Past Surgical History: Yes Hx Neurologic Surgery: No Hx Cataract Extraction: No Hx Cardiac Surgery: No Hx Lung Surgery: No Hx Breast Surgery: No Hx Breast Biopsy: No Hx Abdominal Surgery: Yes (colostomy bag in place since 2013 (6 surgeries)) Hx Appendectomy: Yes (in 2013) Hx Cholecystectomy: No Hx Genitourinary Surgery: No Hx Section: No Hx Orthopedic Surgery: No Other Surgical History: DENIES. Anesthesia Reaction: No - PPD History Date: 07/08/18 Results: 0 mm - Smoking Cessation Smoking history: Current every day smoker Have you smoked in the past 12 months: Yes Aproximately how many cigarettes per day: 30 Cigars Per Day: 1 Hx Chewing Tobacco Use: No Initiated information on smoking cessation: Yes 'Breaking Loose' booklet given: 10/05/18 - Substances abused Heroin Substance route: Injection Frequency: Daily Amount used: 2GRAMS Age of first use: 41 Date of last use: 07/05/18 Alprazolam (Xanax) Substance route: Oral Frequency: Daily Amount used: 6-8 pills of 2 mg Age of first use: 18 Date of last use: 10/02/18 Alcohol Substance route: Oral Frequency: Daily Amount used: 4 -6 40 ounce/beer Age of first use: 18 Date of last use: 10/04/18 Cocaine Substance route: Injection Frequency: Daily Amount used: 2 grams Age of first use: 18 Date of last use: 07/05/18 Family Disease History - Family Disease History Family Disease History: Diabetes: Father, Mother, Heart Disease: Father, Mother , Other: Grandparent (Alzheimer's Disease.) Admission Physical Exam [facility] - Vital Signs Vital Signs: Vital Signs - 24 hr 10/05/18 10/05/18 11:48 12:27 Temperature 97.9 F 97.9 F Pulse Rate 55 L 55 L Respiratory 16 16 Rate Blood Pressure 101/63 101/63 - Physical General Appearance: Yes: Disheveled, Irritable, Anxious HEENTM: Yes: Within Normal Limits Respiratory: Yes: Within Normal Limits Neck: Yes: Within Normal Limits Breast: Yes: Breast Exam Deferred Cardiology: Yes: Regular Rhythm, Regular Rate, S1, S2 Abdominal: Yes: Other (COLOSTOMY BAG ALMOST FULL DRAINING LIQUID STOOL NO SURROUNDING ERYTHEMA OR DRAINAGE) Genitourinary: Yes: Within Normal Limits Back: Yes: Within Normal Limits Musculoskeletal: Yes: full range of Motion, Gait Steady Extremities: Yes: Within Normal Limits, Normal Capillary Refill, Normal Inspection Neurological: Yes: body team member II-XII NML intact, Fully Oriented, Alert, Motor Strength 5/5, Normal Mood/Affect Integumentary: Yes: Pale Cleared for Admission [facility] - Detox or Rehab [facility] Level of Care: Medically Supervised Detox Regimen/Protocol: Methadone/Valium Breathalyzer - Breathalyzer Breathalyzer: 0 Urine Drug Screen - Test Device Lot number: [id number] Expiration date: 07/16/20 - Control Is test valid?: Yes - Results Drug screen NEGATIVE: Yes Urine drug screen results: THC-Marijuana, EUNICE-Cocaine, FEN-Fentanyl, MOP-Opiates , OXY-Oxycodone, MTD-Methadone Inpatient Rehab Admission - Rehab Decision to Admit Inpatient rehab admission?: No
[2018-10-05] MEDS ORDERED: METHOCARBAMOL 500 MG TABLET PO PRN (12:53)
[2018-10-05] MEDS ORDERED: MELATONIN 5 MG TABLETS PO PRN (12:53)
[2018-10-05] MEDS ORDERED: diazePAM 5 MG TABLET PO PRN (12:53)
[2018-10-05] MEDS ORDERED: MAG HYDROX/AL HYDROX/SIMETH 30 ML UNIT-DOSE CUP PO PRN (12:53)
[2018-10-05] MEDS ORDERED: BISMUTH SUBSALICYLATE 524 MG/30 ML UD PO PRN (12:53)
[2018-10-05] MEDS ORDERED: MENTHOL/PHENOL 1 EACH UD MM PRN (12:53)
[2018-10-05] MEDS ORDERED: cloNIDine HCL 0.1 MG TABLET PO PRN (12:53)
[2018-10-05] MEDS ORDERED: hydrOXYzine PAMOATE 25 MG CAPSULE (FP) PO PRN (12:53)
[2018-10-05] MEDS ORDERED: MAGNESIUM HYDROX 2400MG/30ML ORAL SUSPENSION 30 ML CUP PO PRN (12:53)
[2018-10-05] MEDS ORDERED: IBUPROFEN 400 MG TABLET (FP) PO PRN (12:53)
[2018-10-05] MEDS ORDERED: MAGNESIUM CITRATE 300 ML BOTTLE PO PRN (12:53)
[2018-10-05] MEDS ORDERED: ACETAMINOPHEN 325 MG TABLET (FP) PO PRN ×2 (12:53)
[2018-10-05] MEDS: diazePAM 5 MG TABLET PO SCH ×2 (14:13→23:02)
[2018-10-05] MEDS ORDERED: METHADONE HCL 10 MG TABLET (FOR DETOX USE ONLY) PO ONE (14:15)
[2018-10-05 14:40] LABS: HEMATOCRIT 26.3 % (35.4-49); HEMOGLOBIN 8.5 GM/dL (11.7-16.9); MCH 25.4 pg (25.7-33.7); MCHC 32.5 g/dl (32.0-35.9); MEAN CELL VOLUME 78.1 fl (80-96); MEAN PLT VOLUME 7.9 fl (7.5-11.1); PLATELET COUNT 213 K/MM3 (134-434); RBC 3.36 M/mm3 (4.00-5.60); RDW 16.8 % (11.9-15.9); WHITE BLOOD COUNT 4.4 K/mm3 (4.0-10.0)
[2018-10-05] MEDS: ENALAPRIL MALEATE 10 MG TABLET (FP) PO SCH (14:59)
[2018-10-05 15:25] LABS: ALBUMIN 2.9 g/dl (3.4-5.0); BILIRUBIN,TOTAL 0.2 mg/dL (0.2-1); BLOOD UREA NITROGEN 20.3 mg/dL (7-18); CALCIUM 8.6 mg/dL (8.5-10.1); CREATININE 0.9 mg/dL (0.55-1.3); POTASSIUM 3.5 mmol/L (3.5-5.1); TOT PROT 7.1 g/dl (6.4-8.2)
[2018-10-05] MEDS ORDERED: THIAMINE HCL 100 MG TABLET (FP) PO SCH (22:00)
[2018-10-05] MEDS: TOLNAFTATE 1% POWDER 45 GM POW TP SCH (23:02)
[2018-10-06] MEDS: diazePAM 5 MG TABLET PO SCH ×2 (07:30→15:07)
[2018-10-06 09:04] VITALS: BP 145/79; PULSE 53; TEMP 98
--- NOTE | 2018-10-06 09:14 | CONSULT ---
[facility] Psychiatric Consult - Data Date of interview: 10/06/18 Psychiatric History: Patient was approached at bedside. He told narrative writer that he did not want to talk. Patient looks and sounds strange. Warehouse Record Clerk's concern was conveyed to XIOMARA Hebert
[2018-10-06] MEDS ORDERED: METHADONE HCL 5 MG TABLET (FOR DETOX USE ONLY) PO ONE (10:00)
[2018-10-06] MEDS ORDERED: PRENATAL VITAMINS W/ FOLIC ACID TABLET (FP) PO SCH (10:00)
[2018-10-06] MEDS: ENALAPRIL MALEATE 10 MG TABLET (FP) PO SCH (11:28)
[2018-10-06] MEDS: TOLNAFTATE 1% POWDER 45 GM POW TP SCH (11:28)
--- NOTE | 2018-10-06 11:40 | PN ---
S CIWA - CIWA Score Nausea/Vomitin-No Nausea/No Vomiting Muscle Tremors: 2 Anxiety: 5 Agitation: 0-Normal Activity Paroxysmal Sweats: 4-Forehead w/Sweat Beads Orientation: 4Disoriented Place/Person Tacttile Disturbances: 0-None Auditory Disturbances: 0-None Visual Disturbances: 2-Mild Sensitivity Headache: 0-None Present CIWA-Ar Total Score: 17 BHS COWS - Scale Resting Pulse: 0= [place] 80 or Below Sweatin= Beads of Sweat on Face Restless Observation: 0= Sits Still Pupil Size: 0= Normal to Room Light Bone or Joint Aches: 2= Severe Diffuse Aches Runny Nose/ Eye Tearin= None GI Upset > 30mins: 2= Nausea/Diarrhea Tremor Observation of Outstretched Hands: 2= Slight Tremor Visible Yawning Observation: 1= 1-2x During Session Anxiety or Irritability: 4=Extreme Anxiety Goose Flesh Skin: 0=Smooth Skin COWS Score: 14 S Progress Note (SOAP) Subjective: Sweating, Anxious, Fatigue, Tremors. Objective: PATIENT A & O X 1 (DISORIENTED TO CURRENT DAY / DATE AND TO CURRENT LOCATION). 10/06/18 11:36 Vital Signs Temperature 98.0 F 10/06/18 09:03 Pulse Rate 53 L 10/06/18 09:03 Respiratory Rate 18 10/06/18 09:03 Blood Pressure 145/79 10/06/18 09:03 O2 Sat by Pulse Oximetry (%) Laboratory Tests 10/05/18 10/05/18 10/05/18 13:07 13:10 13:10 WBC 4.4 RBC 3.36 L Hgb 8.5 L Hct 26.3 L D MCV 78.1 L MCH 25.4 L MCHC 32.5 RDW 16.8 H Plt Count 213 MPV 7.9 Sodium 141 Potassium 3.5 Chloride 109 H Carbon Dioxide 23 Anion Gap 8 BUN 20.3 H Creatinine 0.9 Est GFR (CKD-EPI)AfAm 122.52 Est GFR (CKD-EPI)NonAf 105.71 POC Glucometer 89 Random Glucose 75 Calcium 8.6 Total Bilirubin 0.2 AST 19 ALT 18 Alkaline Phosphatase 70 Total Protein 7.1 Albumin 2.9 L RPR Titer 10/05/18 10/05/18 13:10 16:41 WBC RBC Hgb Hct MCV MCH MCHC RDW Plt Count MPV Sodium Potassium Chloride Carbon Dioxide Anion Gap BUN Creatinine Est GFR (CKD-EPI)AfAm Est GFR (CKD-EPI)NonAf POC Glucometer 100 Random Glucose Calcium Total Bilirubin AST ALT Alkaline Phosphatase Total Protein Albumin RPR Titer Nonreactive LABS NOTED. PATIENT HAS BEEN ANEMIC ON PAST ADMISSIONS. 10/06/18 11:44 Assessment: 10/06/18 11:40 WITHDRAWAL SYMPTOMS. HYPERTENSION. ANEMIA. 10/06/18 11:43 Plan: CONTINUE DETOX. PATIENT TO BE SENT TO [facility] ER FOR FURTHER MEDICAL EVALUATION FOR SEVERE LETHARGY. SEE FOLLOWING [facility] PROGRESS NOTE.
--- NOTE | 2018-10-06 12:04 | PN ---
[facility] Progress Note Note: PATIENT OBSERVED IN BED, APPEARS TO QUITE LETHARGIC. PATIENT OPEN HIS EYES ONLY TO RESPOND BRIEFLY TO CYBER INCIDENT HANDLER'S QUESTIONS, THEN CLOSES HIS EYES IMMEDIATELY AFTER. PATIENT GIVES VERY BRIEF RESPONSES IN MUFFLED SPEECH AND HE IS DIFFICULT TO UNDERSTAND WHEN SPEAKING. PATIENT ALSO DIAPHORETIC. PATIENT A & O X 1 (DISORIENTED TO CURRENT DAY/DATE AND TO CURRENT LOCATION). PATIENT REFUSES TO CHANGE COLOSTOMY BAG. SHEETS ON BED HAVE YELLOW-COLORED SPOTTING, RN REPORTS TO BE LEAKAGE FROM LIKELY FROM COLOSTOMY BAG. PATIENT UNABLE TO GET UP WALK ON UNIT. VS: BP: 175/78; P: 72; T: 97.7: RR: 18; BGM: 375. REPORT GIVEN TO DR. MIMS AT [facility]. PATIENT TAKEN VIA AMBULANCE TO [facility] FOR FURTHER MEDICAL EVALUATION. Benito BACK NP
--- NOTE | 2018-10-06 15:47 | DS ---
[facility] Detox Discharge Summary Admission Date: 10/05/18 Discharge Date: 10/06/18 - History Present History: Alcohol Dependence, Opioid Dependence, Sedative Dependence - Physical Exam Results Vital Signs: Vital Signs Temperature 98.0 F 10/06/18 09:03 Pulse Rate 53 L 10/06/18 09:03 Respiratory Rate 18 10/06/18 09:03 Blood Pressure 145/79 10/06/18 09:03 O2 Sat by Pulse Oximetry (%) Pertinent Admission Physical Exam Findings: pt referred to [facility] ED for evaluation d/t pt feeling weak, lethargic . pt was sent and evaluated and now notes indicate that pt signed out of the ED refusing all medical attention and or medication. - Medication Discharge Medications: Ambulatory Orders Enalapril Maleate [Vasotec -] 10 mg PO DAILY #30 tablet 01/05/17 Insulin Sliding Scale [Novolog Vial Sliding Scale -] 0 units SQ ASDIR PRN Quetiapine Fumarate [Seroquel] 300 mg PO BID 07/06/18 Alprazolam [Xanax] 2 mg PO BID 10/05/18 Tramadol HCl [Ultram] 200 mg PO BID 10/05/18 - AMA Did Patient Leave Against Medical Advice: No (sent to [facility] ED)
[2018-10-07] MEDS ORDERED: diazePAM 5 MG TABLET PO SCH (06:00)
[2018-10-07] MEDS ORDERED: METHADONE HCL 10 MG TABLET (FOR DETOX USE ONLY) PO ONE (10:00)
[2018-10-08] MEDS ORDERED: diazePAM 5 MG TABLET PO ONE (06:00)
[2018-10-08] MEDS ORDERED: METHADONE HCL 5 MG TABLET (FOR DETOX USE ONLY) PO ONE (06:00)
== END 2018-10-06 14:45 | disposition short-term general hospital (02) | DRG 773 ==
LOC: YASAS 09:45 → Y6N 13:20
PROVIDERS: ADMIT Surgery; ATTEND Surgery
PROC: HZ2ZZZZ Detoxification Services for Substance Abuse Treatment (ICD-10-PCS; principal; 2018-10-05)
DX: F11.23 Opioid dependence with withdrawal (principal); F10.230 Alcohol dependence with withdrawal, uncomplicated; F13.230 Sedative, hypnotic or anxiolytic dependence with withdrawal, uncomplicated; F14.20 Cocaine dependence, uncomplicated; F17.210 Nicotine dependence, cigarettes, uncomplicated; R53.83 Other fatigue; R61 Generalized hyperhidrosis; Z93.3 Colostomy status; Z91.5 Personal history of self-harm
CPT/HCPCS: 36415; 80053; 82962; 85027; 86593

== ENCOUNTER 2018-10-06 12:10 | Inpatient (IN) | payer BC ==
--- NOTE | 2018-10-06 15:01 | PDOC ---
Documentation entered by Malcolm Sebastian SCRIBE, acting as scribe for Mitzy Mclaughlin MD. Mitzy Mclaughlin MD: This documentation has been prepared by the Romulo huggins Daniel, SCRIBE, under my direction and personally reviewed by me in its entirety. I confirm that the documentation accurately reflects all work, treatment, procedures, and medical decision making performed by me. History of Present Illness - General Stated Complaint: WEAKNESS History Source: Patient, Old Records - History of Present Illness Initial Comments: 10/06/18 13:07 The patient is a 43 year old male with a past medical history of nemia, HTN, IVDA, opioid dependence; xanax, cocaine, and nicotine dependence, Type II diabetes, and hep C here today for evaluation of somnolence. The patient was sent over from [facility] for somnolence. The patient does not answer most questions and refused care. He does endorse new back pain and denies any drug use today. Allergies: NKA Past History - Past Medical History Allergies/Adverse Reactions: Allergies Allergy/AdvReac Type Severity Reaction Status Date / Time No Known Allergies Allergy Verified 10/06/18 12:49 Home Medications: Ambulatory Orders Enalapril Maleate [Vasotec -] 10 mg PO DAILY #30 tablet 01/05/17 Insulin Sliding Scale [Novolog Vial Sliding Scale -] 0 units SQ ASDIR PRN Quetiapine Fumarate [Seroquel] 300 mg PO BID 07/06/18 Alprazolam [Xanax] 2 mg PO BID 10/05/18 Tramadol HCl [Ultram] 200 mg PO BID 10/05/18 Anemia: Yes (Iron-deficiency tpye. No current meds.) Asthma: Yes Cancer: No Cardiac Disorders: No CVA: No COPD: No CHF: No Dementia: No Diabetes: Yes (Type II) GI Disorders: Yes (Hx of colon CA pt has a colostomy in place 2013) Disorders: No HTN: Yes Hypercholesterolemia: No Kidney Stones: No Liver Disease: No Seizures: No Thyroid Disease: No - Surgical History Abdominal Surgery: Yes (colostomy bag in place since 2013 (6 surgeries)) Appendectomy: Yes (in 2013) Cardiac Surgery: No Cholecystectomy: No Lung Surgery: No Neurologic Surgery: No Orthopedic Surgery: No - Reproductive History Testicular Surgery: No - Immunization History Immunization Up to Date: No - Suicide/Smoking/Psychosocial Hx Smoking History: Current every day smoker Have you smoked in the past 12 months: Yes Number of Cigarettes Smoked Daily: 20 Cigars Per Day: 1 'Breaking Loose' booklet given: 10/05/18 Hx Alcohol Use: Yes Drug/Substance Use Hx: Yes Substance Use Type: Cocaine, Heroin, Tranquilizers (Xanax) Hx Substance Use Treatment: Yes Review of Systems - Review of Systems Able to Perform ROS?: No Comments:: 10/06/18 13:08 Limited due to patient's condition. *Physical Exam - Vital Signs Last Vital Signs Temp Pulse Resp BP Pulse Ox 99.7 F H 51 L 18 153/89 97 10/06/18 12:49 10/06/18 12:49 10/06/18 12:49 10/06/18 12:49 10/06/18 12:49 - Physical Exam Comments: 10/06/18 13:08 GENERAL: + patient is somnolent. HEAD: Normal with no signs of trauma. EYES: Pupils pinpoint, EOMI ENT: Poor dentition, Dry mucous membranes. NECK: Normal range of motion, supple, no nuchal rigidity LUNGS: Breath sounds equal, clear to auscultation bilaterally. No wheezes, and no crackles. HEART:Regular rate and rhythm, normal S1 and S2 ABDOMEN: +colostomy bag in left abdominal wall which is pink and patent. + multiple surgeries on abdomen. Soft, nontender, normoactive bowel sounds. No guarding, no rebound. EXTREMITIES: Normal range of motion, no edema. NEUROLOGICAL: Pt moves all extremities, arousable but somnolent MUSCULOSKELETAL: furnace tender to palpation (overlying rash), no CVA tenderness SKIN: erythematous macular papular rash bilaterally on lower back ED Treatment Course - LABORATORY CBC & Chemistry Diagram: 10/06/18 18:19 10/06/18 18:19 Medical Decision Making - Medical Decision Making 10/06/18 14:35 Pt refusing any intervention by staff Refusing rectal temperature Initially refusing even to have ostomy bag changed and abdomen cleaned by staff Refusing Labs Refusing EKG Refusing Medications for back pain Brief assessment reveals Pt is discheveled Pt is arousable to verbal stimuli Regular rate and rhythm Weak inspiration, but clear to auscultation Abd with multiple surgical scars, left abdominal ostomy which is pink and patent No lower extremity edema Erythematous macular papular rash on pt lower back Pt is adamant about leaving the ER He will be leaving AMA 10/06/18 16:08 Pt now stating that he is willing to be treated in the ER Unclear why he was sent here as he has not voiced any complaints to me besides, "I have back pain" and "I want Methadone" Will do labs, EKG, CXR will plan to assess Pt signed out to Dr. Hendrickson *DC/Admit/Observation/Transfer Diagnosis at time of Disposition: Polysubstance (including opioids) dependence with physiol dependence, Colostomy in place, Urinary tract infection, Sepsis - Discharge Dispostion Disposition: AGAINST MEDICAL ADVICE Condition at time of disposition: Fair Decision to Admit order: No - Referrals - Patient Instructions - Post Discharge Activity
[2018-10-06] MEDS ORDERED: CEFTRIAXONE 1,000 MG in DEXTROSE 5%-WATER - 50 ML IVPB ONE (18:22)
[2018-10-06] MEDS ORDERED: VANCOMYCIN HCL 1,250 MG in DEXTROSE 5%-WATER - 250 ML IVPB ONE (18:23)
--- NOTE | 2018-10-06 18:32 | PDOC ---
Documentation entered by Booker Flores SCRIBE, acting as scribe for Miah Hendrickson MD. Miah Hendrickson MD: This documentation has been prepared by the reeSandra Elijah, SCRIBE, under my direction and personally reviewed by me in its entirety. I confirm that the documentation accurately reflects all work, treatment, procedures, and medical decision making performed by me. *Physical Exam - Vital Signs Last Vital Signs Temp Pulse Resp BP Pulse Ox 99.7 F H 51 L 18 153/89 97 10/06/18 12:49 10/06/18 12:49 10/06/18 12:49 10/06/18 12:49 10/06/18 12:49 ED Treatment Course - LABORATORY CBC & Chemistry Diagram: 10/06/18 18:19 10/06/18 18:19 - RADIOLOGY Radiology Studies Ordered: Category Date Time Status CHEST X-RAY PORTABLE* [RAD] Stat Radiology 10/06/18 18:00 Ordered Medical Decision Making - Medical Decision Making 10/06/18 18:17 Received sign-out from Dr. Mclaughlin Patient is a 43 year old ill appearing male who presents from [facility] with AMS and Lethargy Patient initially refused all care but changed mind at sign-out Now AMS but arousable, Bradycardic w/ Low Grade fever No meningeal sins, No audible murmurs, No Rubs or gallops. no midline back deform or ttp; Moving all extremities lumbar-sacral erythematous well demarcated rash consistent with candidiasis no petechiae multiple venuepuncture wounds to UEs and LEs b/l 10/06/18 18:31 I suspect sepsis (IV drug use related endocarditis, spinal epidural abscess less likely). We'll obtain blood cultures, ESR and CRP. We'll administer IV fluids. Patient refused IV Tylenol. Will obtain chest x-ray to rule out pneumonia. We'll administer ceftriaxone vancomycin for coverage of suspected endocarditis. Will admit. 10/06/18 19:12 colostomy site uncovered. awaiting colostomy bag from [facility]. 10/06/18 19:20 10/06/18 19:38 CBC consistent leukocytosis with neutrophilia. chest x-ray reveals no evidence of infiltrate or effusion.Review of patient's previous medical record indicates Klebsiella ESBL producingobtain in 2018. Will add amikacin to the antibiotic regimen. 10/06/18 19:47 pts VS: HR-54, BP: 128/67, sat-99%; 10/06/18 19:[address] Garcia for med/surg admission. *DC/Admit/Observation/Transfer Diagnosis at time of Disposition: Polysubstance (including opioids) dependence with physiol dependence, Colostomy in place Urinary tract infection Qualifiers: Urinary tract infection type: site unspecified Hematuria presence: without hematuria Qualified Code(s): N39.0 - Urinary tract infection, site not specified Sepsis Qualifiers: Sepsis type: sepsis due to unspecified organism Sepsis acute organ dysfunction status: unspecified Qualified Code(s): A41.9 - Sepsis, unspecified organism - Discharge Dispostion Disposition: AGAINST MEDICAL ADVICE Condition at time of disposition: Fair Decision to Admit order: Yes - Referrals - Patient Instructions Printed Discharge Instructions: Substance Use Disorder, Getting Treatment for Drug Addiction Additional Instructions: Mr Ball Thank you for coming in to the ER today Please be sure to follow up with a primary care physician You should consider continuing your drug treatment - Post Discharge Activity
[2018-10-06 18:48] LABS: HEMATOCRIT 38.8 % (35.4-49); HEMOGLOBIN 12.4 GM/dL (11.7-16.9); MEAN CELL VOLUME 78.2 fl (80-96); MEAN PLT VOLUME 8.3 fl (7.5-11.1); PLATELET COUNT 331 K/MM3 (134-434); RBC 4.96 M/mm3 (4.00-5.60); RDW 16.9 % (11.9-15.9); WHITE BLOOD COUNT 16.5 K/mm3 (4.0-10.0)
[2018-10-06] MEDS ORDERED: CEFTRIAXONE 1 GM/50 ML BAG ONE (18:48)
[2018-10-06 19:20] LABS: LIPASE 175 U/L (73-393)
[2018-10-06 19:20] LABS: EPI CELLS 4.8 /HPF (0-5/HPF); HYALINE CASTS 6 /lpf (0-8); URINE APPEARANCE CLEAR; URINE BACTERIA 11.5 /hpf (NEGATIVE); URINE BILIRUBIN NEGATIVE (NEGATIVE); URINE COLOR YELLOW; URINE GLUCOSE (UA) NEGATIVE (NEGATIVE); URINE KETONE NEGATIVE (NEGATIVE); URINE LEUK ESTERASE TRACE (NEGATIVE); URINE NITRITE NEGATIVE (NEGATIVE); URINE PROTEIN 2+ (NEGATIVE); URINE RBC 2 /hpf (0-4); URINE UROBILINOGEN 0.2 mg/dL (0.2-1.0); URINE WBC 14 /hpf (0-5)
[2018-10-06 19:21] LABS: ALBUMIN 3.8 g/dl (3.4-5.0); BILIRUBIN,TOTAL 0.4 mg/dL (0.2-1); BLOOD UREA NITROGEN 13.7 mg/dL (7-18); CALCIUM 9.9 mg/dL (8.5-10.1); CREATININE 0.9 mg/dL (0.55-1.3); POTASSIUM 3.8 mmol/L (3.5-5.1); TOT PROT 9.6 g/dl (6.4-8.2)
[2018-10-06 19:34] LABS: TEAR DROP CELLS FEW
[2018-10-06] MEDS ORDERED: AMIKACIN SO4 IVPB ONE (19:37)
[2018-10-06] MEDS ORDERED: SODIUM CHLORIDE IVPB ONE (19:37)
[2018-10-06] MEDS ORDERED: ACETAMINOPHEN 1000 MG/100 ML VIAL (NON FORMULARY) IVPB ONE (20:05)
[2018-10-06 20:13] LABS: PHENCYCLIDINE,URINE NEGATIVE ng/ml (CUTOFF=25); URINE AMPHETAMINES NEGATIVE ng/ml (CUTOFF=500); URINE BARBITURATES NEGATIVE ng/ml (CUTOFF=200)
[2018-10-06 20:16] LABS: COCAINE, UR POSITIVE ng/ml (CUTOFF=300); OPIATES, URI POSITIVE ng/ml (CUTOFF=300); URINE BENZODIAZEPINES POSITIVE ng/ml (CUTOFF=200)
[2018-10-06 20:17] LABS: METHADONE, UR POSITIVE ng/ml (CUTOFF=300)
[2018-10-06] MEDS ORDERED: ACETAMINOPHEN INJECTION 100 ML IVPB ONE (20:40)
[2018-10-06] MEDS: DEXTROSE 5%-0.45% SALINE 1,000 ML IV SCH (20:50)
--- NOTE | 2018-10-06 20:51 | HP ---
Admitting History and Physical - Primary Care Physician PCP: Akila Garcia - Admission Chief Complaint: lethargy History of Present Illness: 43 year old male with a past medical history of nemia, HTN, IVDA, opioid dependence; xanax, cocaine, and nicotine dependence, Type II diabetes, and hep C here today for evaluation of somnolence. The patient was sent over from [facility] for somnolence. The patient does not answer most questions and refused care. He does endorse new back pain and denies any drug use today. - Past Medical History Cardiovascular: Yes: HTN Gastrointestinal: Yes: Other (Colitis, s/p Colostomy, Vague midabdominal pain, s /p appendectomy with multiple complications , operated a few years ago in [place]..) Hepatobiliary: Yes: Hepatitis C Psych: Yes: Addictions (see below) - Past Surgical History Past Surgical History: Yes: Colostomy - Smoking History Smoking history: Current every day smoker Have you smoked in the past 12 months: Yes Aproximately how many cigarettes per day: 20 - Alcohol/Substance Use Hx Alcohol Use: Yes History of Substance Use: reports: Cocaine, Heroin, Prescription Date of Last Use: 08/11/17 (injected heroin/cocaine right forearm) Home Medications - Allergies Allergies/Adverse Reactions: Allergies Allergy/AdvReac Type Severity Reaction Status Date / Time No Known Allergies Allergy Verified 10/06/18 12:49 - Home Medications Home Medications: Ambulatory Orders Insulin Sliding Scale [Novolog Vial Sliding Scale -] 0 units SQ ASDIR PRN Quetiapine Fumarate [Seroquel] 300 mg PO BID 07/06/18 Alprazolam [Xanax] 2 mg PO BID 10/05/18 Tramadol HCl [Ultram] 200 mg PO BID 10/05/18 Enalapril Maleate [Vasotec -] 10 mg PO DAILY #30 tablet 10/11/18 Family Disease History - Family Disease History Family Disease History: Diabetes: Father, Mother, Heart Disease: Father, Mother , Other: Grandparent (Alzheimer's Disease.) Physical Examination Vital Signs: Vital Signs Temperature 99.7 F H 10/06/18 12:49 Pulse Rate 51 L 10/06/18 12:49 Respiratory Rate 18 10/06/18 12:49 Blood Pressure 153/89 10/06/18 12:49 O2 Sat by Pulse Oximetry (%) 99 10/06/18 19:30 Constitutional: Yes: Anxious HENT: Yes: Atraumatic Neck: Yes: Supple Cardiovascular: Yes: Regular Rate and Rhythm Respiratory: Yes: CTA Bilaterally Gastrointestinal: Yes: Normal Bowel Sounds Extremities: Yes: WNL Neurological: Yes: Alert, Oriented Labs: CBC, BMP 10/06/18 18:19 10/06/18 18:19 Problem List - Problems (1) Polysubstance (including opioids) dependence with physiol dependence Assessment/Plan: on [facility] protocol for etoh detox consult Code(s): F19.20 - OTHER PSYCHOACTIVE SUBSTANCE DEPENDENCE, UNCOMPLICATED (2) Colostomy in place Code(s): Z93.3 - COLOSTOMY STATUS (3) Intravenous drug user Code(s): F19.90 - OTHER PSYCHOACTIVE SUBSTANCE USE, UNSPECIFIED, UNCOMPLICATED (4) Diabetes mellitus type II, controlled Code(s): E11.9 - TYPE 2 DIABETES MELLITUS WITHOUT COMPLICATIONS (5) Hepatitis C Code(s): B19.20 - UNSPECIFIED VIRAL HEPATITIS C WITHOUT HEPATIC COMA Qualifiers: (6) Hypertension Assessment/Plan: on meds Code(s): I10 - ESSENTIAL (PRIMARY) HYPERTENSION Qualifiers: Assessment/Plan Laboratory Tests 10/06/18 10/06/18 10/06/18 18:19 18:19 18:19 WBC 16.5 H RBC 4.96 Hgb 12.4 Hct 38.8 D MCV 78.2 L MCH 25.0 L MCHC 32.0 RDW 16.9 H Plt Count 331 D MPV 8.3 Absolute Neuts (auto) 15.0 H Total Counted 100 Neutrophils % [place] Neutrophils % (Manual) 89.0 H Band Neutrophils % 0.0 Lymphocytes % [place] Lymphocytes % (Manual) 5.0 L Monocytes % [place] Monocytes % (Manual) 6 Eosinophils % [place] Eosinophils % (Manual) 0.0 Basophils % [place] Basophils % (Manual) 0.0 Nucleated RBC % 0 Hypochromia 1+ Microcytosis 1+ Tear Drop Cells Few ESR Sodium 136 Potassium 3.8 Chloride 101 Carbon Dioxide 25 Anion Gap 11 BUN 13.7 Creatinine 0.9 Est GFR (CKD-EPI)AfAm 122.52 Est GFR (CKD-EPI)NonAf 105.71 Random Glucose 90 Lactic Acid Calcium 9.9 Total Bilirubin 0.4 AST 21 ALT 21 Alkaline Phosphatase 93 Creatine Kinase Troponin I C-Reactive Protein Total Protein 9.6 H Albumin 3.8 Total Amylase 83 Lipase Urine Color Urine Appearance Urine pH Ur Specific [place] Urine Protein Urine Glucose (UA) Urine Ketones Urine Blood Urine Nitrite Urine Bilirubin Urine Urobilinogen Ur Leukocyte Esterase Urine WBC (Auto) Urine RBC (Auto) Urine Casts (Auto) U Epithel Cells (Auto) U Sm Round Cell (Auto) Urine Bacteria (Auto) Opiates Screen Methadone Screen Barbiturate Screen Phencyclidine Screen Ur Amphetamines Screen MDMA (Ecstasy) Screen Benzodiazepines Screen Cocaine Screen U Marijuana (THC) Screen 10/06/18 10/06/18 10/06/18 18:19 18:19 18:27 WBC RBC Hgb Hct MCV MCH MCHC RDW Plt Count MPV Absolute Neuts (auto) Total Counted Neutrophils % Neutrophils % (Manual) Band Neutrophils % Lymphocytes % Lymphocytes % (Manual) Monocytes % Monocytes % (Manual) Eosinophils % Eosinophils % (Manual) Basophils % Basophils % (Manual) Nucleated RBC % Hypochromia Microcytosis Tear Drop Cells ESR 44 H Sodium Potassium Chloride Carbon Dioxide Anion Gap BUN Creatinine Est GFR (CKD-EPI)AfAm Est GFR (CKD-EPI)NonAf Random Glucose Lactic Acid 1.5 Calcium Total Bilirubin AST ALT Alkaline Phosphatase Creatine Kinase 47 Troponin I < 0.02 C-Reactive Protein 0.8 H Total Protein Albumin Total Amylase Lipase 175 Urine Color Urine Appearance Urine pH Ur Specific [place] Urine Protein Urine Glucose (UA) Urine Ketones Urine Blood Urine Nitrite Urine Bilirubin Urine Urobilinogen Ur Leukocyte Esterase Urine WBC (Auto) Urine RBC (Auto) Urine Casts (Auto) U Epithel Cells (Auto) U Sm Round Cell (Auto) Urine Bacteria (Auto) Opiates Screen Methadone Screen Barbiturate Screen Phencyclidine Screen Ur Amphetamines Screen MDMA (Ecstasy) Screen Benzodiazepines Screen Cocaine Screen U Marijuana (THC) Screen 10/06/18 10/06/18 19:01 19:01 WBC RBC Hgb Hct MCV MCH MCHC RDW Plt Count MPV Absolute Neuts (auto) Total Counted Neutrophils % Neutrophils % (Manual) Band Neutrophils % Lymphocytes % Lymphocytes % (Manual) Monocytes % Monocytes % (Manual) Eosinophils % Eosinophils % (Manual) Basophils % Basophils % (Manual) Nucleated RBC % Hypochromia Microcytosis Tear Drop Cells ESR Sodium Potassium Chloride Carbon Dioxide Anion Gap BUN Creatinine Est GFR (CKD-EPI)AfAm Est GFR (CKD-EPI)NonAf Random Glucose Lactic Acid Calcium Total Bilirubin AST ALT Alkaline Phosphatase Creatine Kinase Troponin I C-Reactive Protein Total Protein Albumin Total Amylase Lipase Urine Color Yellow Urine Appearance Clear Urine pH 5.0 Ur Specific [place] 1.020 Urine Protein 2+ H Urine Glucose (UA) Negative Urine Ketones Negative Urine Blood Negative Urine Nitrite Negative Urine Bilirubin Negative Urine Urobilinogen 0.2 Ur Leukocyte Esterase Trace Urine WBC (Auto) 14 Urine RBC (Auto) 2 Urine Casts (Auto) 6 U Epithel Cells (Auto) 4.8 U Sm Round Cell (Auto) Wbcs present Urine Bacteria (Auto) 11.5 Opiates Screen Positive A* Methadone Screen Positive A* Barbiturate Screen Negative Phencyclidine Screen Negative Ur Amphetamines Screen Negative MDMA (Ecstasy) Screen Negative Benzodiazepines Screen Positive A* Cocaine Screen Positive A* U Marijuana (THC) Screen Negative Active Medications Generic Name Dose Route Start Last Admin Trade Name Freq PRN Reason Stop Dose Admin Dextrose/Sodium Chloride 1,000 mls @ 125 mls/hr 10/06/18 20:30 10/06/18 20:50 D5-1/2ns - IV 125 mls/hr ASDIR ANTOINETTE Administration Active Medications Generic Name Dose Route Start Last Admin Trade Name Freq PRN Reason Stop Dose Admin Acetaminophen 650 mg 10/08/18 12:41 10/08/18 13:15 Tylenol - PO 650 mg Q6H PRN Administration FEVER/PAIN Chlordiazepoxide HCl 10 mg 10/11/18 05:00 10/11/18 16:34 Librium - PO 10/11/18 23:01 10 mg [id number] ANTOINETTE Administration Chlordiazepoxide HCl 10 mg 10/12/18 05:00 Librium - PO 10/12/18 17:01 Q12H ANTOINETTE Chlordiazepoxide HCl 10 mg 10/11/18 00:00 Librium - PO 10/12/18 00:00 Q4H PRN WITHDRAWAL(CONT SUBST) Chlordiazepoxide HCl 10 mg 10/13/18 05:00 Librium - PO 10/13/18 05:01 ONCE@0500 ONE Enalapril Maleate 10 mg 10/07/18 10:00 10/11/18 10:25 Vasotec - PO 10 mg DAILY ANTOINETTE Administration Heparin Sodium (Porcine) 5,000 unit 10/06/18 22:00 10/11/18 10:25 Heparin - SQ 5,000 unit BID ANTOINETTE Administration Methadone HCl 5 mg 10/13/18 06:00 Dolophine - PO 10/13/18 06:01 ONCE@0600 ONE Methadone HCl 10 mg 10/12/18 10:00 Dolophine - PO 10/12/18 10:01 ONCE ONE
[2018-10-06] MEDS ORDERED: HEPARIN NA (PORCINE) 5,000 UNITS/ML 1ML VIAL ONE (23:22)
[2018-10-06] MEDS: HEPARIN NA (PORCINE) 5,000 UNITS/ML 1ML VIAL SQ SCH (23:30)
[2018-10-07] MEDS ORDERED: PT OWN MED DRAWER 7, Y5N ONE (11:37)
--- NOTE | 2018-10-07 11:38 | EKG ---
Test Reason : Blood Pressure : / mmHG Vent. Rate : 044 BPM Atrial Rate : 044 BPM P-R Int : 144 ms QRS Dur : 094 ms QT Int : 500 ms P-R-T Axes : 059 067 057 degrees QTc Int : 427 ms POOR DATA QUALITY, INTERPRETATION MAY BE ADVERSELY AFFECTED MARKED SINUS BRADYCARDIA VOLTAGE CRITERIA FOR LEFT VENTRICULAR HYPERTROPHY ABNORMAL ECG WHEN COMPARED WITH ECG OF 06-JUL-2018 17:43, VENT. RATE HAS DECREASED BY 21 BPM T WAVE INVERSION NO LONGER EVIDENT IN INFERIOR LEADS NONSPECIFIC T WAVE ABNORMALITY NO LONGER EVIDENT IN LATERAL LEADS Confirmed by CHRISTINA HILLIARD MD ([id number]) on 10/07/2018 11:37:57 AM Referred By: Confirmed By:CHRISTINA HILLIARD MD
[2018-10-07] MEDS: ENALAPRIL MALEATE 10 MG TABLET (FP) PO SCH (12:52)
[2018-10-07] MEDS: HEPARIN NA (PORCINE) 5,000 UNITS/ML 1ML VIAL SQ SCH ×2 (12:52→22:02)
--- NOTE | 2018-10-07 16:10 | CON.ID ---
Consult Consult Specialty:: infectious diseases Referred by:: Reason for Consultation:: weakness,dirrhoea - History of Present Illness Chief Complaint: weakness,not feeling well History of Present Illness: 43 year old male with a past medical history of nemia, HTN, IVDA, opioid dependence; xanax, cocaine, and nicotine dependence, Type II diabetes, and hep C here today for evaluation of somnolence. The patient was sent over from [facility] for somnolence. . He does endorse new back pain and denies any drug use today. patient mentions that he feels like crap and currently he has pain all over the body also he has been having dirrhoea and there is loose stools in his colostomy bag denies fever,nausea or vomiting - History Source History Provided By: Patient, Medical Record Limitations to Obtaining History: No Limitations - Past Medical History Cardio/Vascular: Yes: HTN Gastrointestinal: Yes: Other (Colitis, s/p Colostomy, Vague midabdominal pain, s /p appendectomy with multiple complications , operated a few years ago in [place]..) Hepatobiliary: Yes: Hepatitis C Psych: Yes: Addictions (see below) Additional Medical History: has large ventral incisional hernia palpable - Past Surgical History Past Surgical History: Yes: Colostomy - Alcohol/Substance Use Hx Alcohol Use: Yes History of Substance Use: reports: Cocaine, Heroin, Prescription Date of Last Use: 08/11/17 (injected heroin/cocaine right forearm) - Smoking History Smoking history: Current every day smoker Have you smoked in the past 12 months: Yes Aproximately how many cigarettes per day: 20 Home Medications - Allergies Allergies/Adverse Reactions: Allergies Allergy/AdvReac Type Severity Reaction Status Date / Time No Known Allergies Allergy Verified 10/06/18 12:49 - Home Medications Home Medications: Ambulatory Orders Enalapril Maleate [Vasotec -] 10 mg PO DAILY #30 tablet 01/05/17 Insulin Sliding Scale [Novolog Vial Sliding Scale -] 0 units SQ ASDIR PRN Quetiapine Fumarate [Seroquel] 300 mg PO BID 07/06/18 Alprazolam [Xanax] 2 mg PO BID 10/05/18 Tramadol HCl [Ultram] 200 mg PO BID 10/05/18 Family Disease History - Family Disease History Family Disease History: Diabetes: Father, Mother, Heart Disease: Father, Mother , Other: Grandparent (Alzheimer's Disease.) Review of Systems - Review of Systems Constitutional: reports: Weakness, Other Eyes: reports: No Symptoms HENT: reports: No Symptoms Neck: reports: No Symptoms Cardiovascular: reports: No Symptoms Respiratory: reports: No Symptoms Gastrointestinal: reports: Diarrhea Genitourinary: reports: No Symptoms Musculoskeletal: reports: No Symptoms Integumentary: reports: No Symptoms Neurological: reports: No Symptoms Endocrine: reports: No Symptoms Hematology/Lymphatic: reports: No Symptoms Psychiatric: reports: No Symptoms Physical Exam Vital Signs: Vital Signs Temperature 99.7 F H 10/06/18 12:49 Pulse Rate 45 L 10/07/18 06:55 Respiratory Rate 18 10/07/18 09:00 Blood Pressure 155/80 10/07/18 06:55 O2 Sat by Pulse Oximetry (%) 98 10/07/18 09:00 Constitutional: Yes: Calm, Mild Distress, Thin Eyes: Yes: Conjunctiva Clear Neck: Yes: Supple, Trachea Midline Cardiovascular: Yes: Regular Rate and Rhythm Respiratory: Yes: Regular, CTA Bilaterally Gastrointestinal: Yes: Normal Bowel Sounds, Soft, Other (colostomy in place) Musculoskeletal: Yes: WNL Extremities: Yes: WNL Neurological: Yes: Alert, Oriented Psychiatric: Yes: Alert, Oriented Labs: CBC, BMP 10/06/18 18:19 10/06/18 18:19 Imaging - Results Chest X-ray: Report Reviewed, Image Reviewed Assessment/Plan Problem List - Problems (1) Polysubstance (including opioids) dependence with physiol dependence Code(s): F19.20 - OTHER PSYCHOACTIVE SUBSTANCE DEPENDENCE, UNCOMPLICATED (2) Colostomy in place Code(s): Z93.3 - COLOSTOMY STATUS (3) Intravenous drug user Code(s): F19.90 - OTHER PSYCHOACTIVE SUBSTANCE USE, UNSPECIFIED, UNCOMPLICATED (4) Diabetes mellitus type II, controlled Code(s): E11.9 - TYPE 2 DIABETES MELLITUS WITHOUT COMPLICATIONS (5) Hepatitis C Code(s): B19.20 - UNSPECIFIED VIRAL HEPATITIS C WITHOUT HEPATIC COMA Qualifiers: (6) Hypertension Code(s): I10 - ESSENTIAL (PRIMARY) HYPERTENSION Qualifiers: 7 dirrhoea plan will send stool for cdiff will start oral vanco monitor wbc rest as per the team
--- NOTE | 2018-10-07 16:51 | PN ---
Progress Note, Physician - Current Medication List Current Medications: Active Medications Enalapril Maleate (Vasotec -) 10 mg PO DAILY [facility] Last Admin: 10/07/18 12:52 Dose: Not Given Heparin Sodium (Porcine) (Heparin -) 5,000 unit SQ BID [facility] Last Admin: 10/07/18 12:52 Dose: Not Given Dextrose/Sodium Chloride (D5-1/2ns -) 1,000 mls @ 125 mls/hr IV ASDIR [facility] Last Admin: 10/06/18 20:50 Dose: 125 mls/hr Vancomycin HCl (Vancomycin Oral Solution) 125 mg PO Q6HPO [facility] - Objective Vital Signs: Vital Signs Temperature 97.1 F L 10/07/18 10:00 Pulse Rate 48 L 10/07/18 16:44 Respiratory Rate 16 10/07/18 12:00 Blood Pressure 155/88 10/07/18 16:44 O2 Sat by Pulse Oximetry (%) 100 10/07/18 16:44 Constitutional: Yes: No Distress HENT: Yes: Atraumatic Neck: Yes: Supple Cardiovascular: Yes: Regular Rate and Rhythm Respiratory: Yes: CTA Bilaterally Gastrointestinal: Yes: Normal Bowel Sounds Extremities: Yes: WNL Edema: No Peripheral Pulses WNL: Yes Neurological: Yes: Alert Labs: CBC, BMP 10/06/18 18:19 10/06/18 18:19 Problem List - Problems (1) Polysubstance (including opioids) dependence with physiol dependence Assessment/Plan: on librium protocol for etoh detox consult Code(s): F19.20 - OTHER PSYCHOACTIVE SUBSTANCE DEPENDENCE, UNCOMPLICATED (2) Colostomy in place Code(s): Z93.3 - COLOSTOMY STATUS (3) Intravenous drug user Code(s): F19.90 - OTHER PSYCHOACTIVE SUBSTANCE USE, UNSPECIFIED, UNCOMPLICATED (4) Diabetes mellitus type II, controlled Code(s): E11.9 - TYPE 2 DIABETES MELLITUS WITHOUT COMPLICATIONS (5) Hepatitis C Code(s): B19.20 - UNSPECIFIED VIRAL HEPATITIS C WITHOUT HEPATIC COMA Qualifiers: (6) Hypertension Assessment/Plan: on meds Code(s): I10 - ESSENTIAL (PRIMARY) HYPERTENSION Qualifiers:
[2018-10-07] MEDS: DEXTROSE 5%-0.45% SALINE 1,000 ML IV SCH (22:01)
[2018-10-07] MEDS: VANCOMYCIN 250 MG/5 ML ORAL SOLUTION PO SCH (22:02)
[2018-10-08] MEDS: VANCOMYCIN 250 MG/5 ML ORAL SOLUTION PO SCH ×4 (00:04→18:26)
[2018-10-08 00:52] VITALS: BMI 21.2
[2018-10-08] MEDS ORDERED: ACETAMINOPHEN 325 MG TABLET (FP) PO ONE (02:19)
--- NOTE | 2018-10-08 02:24 | HOSP ---
Subjective - Review of Symptoms Events since last encounter: Hospitalist Encounter Notified by the RN that the patient reports having generalized bodyaches. Assessment: 43 year old male with a past medical history of Anemia, HTN, IVDA, opioid dependence; xanax, cocaine, and nicotine dependence, Type II diabetes, and hep C. Admitted for Sepsis and Substance Abuse. Plan: Tylenol 650mg po x1 now Physical Examination Vital Signs: Vital Signs Temperature 97.9 F 10/08/18 00:15 Pulse Rate 60 10/08/18 00:15 Respiratory Rate 16 10/08/18 00:15 Blood Pressure 140/74 10/08/18 00:15 O2 Sat by Pulse Oximetry (%) 98 10/08/18 00:15 Labs: CBC, BMP 10/06/18 18:19 10/06/18 18:19 Laboratory Tests 10/06/18 10/06/18 10/06/18 18:19 18:19 18:19 WBC 16.5 H RBC 4.96 Hgb 12.4 Hct 38.8 D MCV 78.2 L MCH 25.0 L MCHC 32.0 RDW 16.9 H Plt Count 331 D MPV 8.3 Absolute Neuts (auto) 15.0 H Total Counted 100 Neutrophils % [place] Neutrophils % (Manual) 89.0 H Band Neutrophils % 0.0 Lymphocytes % [place] Lymphocytes % (Manual) 5.0 L Monocytes % [place] Monocytes % (Manual) 6 Eosinophils % [place] Eosinophils % (Manual) 0.0 Basophils % [place] Basophils % (Manual) 0.0 Nucleated RBC % 0 Hypochromia 1+ Microcytosis 1+ Tear Drop Cells Few ESR Sodium 136 Potassium 3.8 Chloride 101 Carbon Dioxide 25 Anion Gap 11 BUN 13.7 Creatinine 0.9 Est GFR (CKD-EPI)AfAm 122.52 Est GFR (CKD-EPI)NonAf 105.71 Random Glucose 90 Lactic Acid Calcium 9.9 Total Bilirubin 0.4 AST 21 ALT 21 Alkaline Phosphatase 93 Creatine Kinase Troponin I C-Reactive Protein Total Protein 9.6 H Albumin 3.8 Total Amylase 83 Lipase Urine Color Urine Appearance Urine pH Ur Specific [place] Urine Protein Urine Glucose (UA) Urine Ketones Urine Blood Urine Nitrite Urine Bilirubin Urine Urobilinogen Ur Leukocyte Esterase Urine WBC (Auto) Urine RBC (Auto) Urine Casts (Auto) U Epithel Cells (Auto) U Sm Round Cell (Auto) Urine Bacteria (Auto) Opiates Screen Methadone Screen Barbiturate Screen Phencyclidine Screen Ur Amphetamines Screen MDMA (Ecstasy) Screen Benzodiazepines Screen Cocaine Screen U Marijuana (THC) Screen 10/06/18 10/06/18 10/06/18 18:19 18:19 18:27 WBC RBC Hgb Hct MCV MCH MCHC RDW Plt Count MPV Absolute Neuts (auto) Total Counted Neutrophils % Neutrophils % (Manual) Band Neutrophils % Lymphocytes % Lymphocytes % (Manual) Monocytes % Monocytes % (Manual) Eosinophils % Eosinophils % (Manual) Basophils % Basophils % (Manual) Nucleated RBC % Hypochromia Microcytosis Tear Drop Cells ESR 44 H Sodium Potassium Chloride Carbon Dioxide Anion Gap BUN Creatinine Est GFR (CKD-EPI)AfAm Est GFR (CKD-EPI)NonAf Random Glucose Lactic Acid 1.5 Calcium Total Bilirubin AST ALT Alkaline Phosphatase Creatine Kinase 47 Troponin I < 0.02 C-Reactive Protein 0.8 H Total Protein Albumin Total Amylase Lipase 175 Urine Color Urine Appearance Urine pH Ur Specific [place] Urine Protein Urine Glucose (UA) Urine Ketones Urine Blood Urine Nitrite Urine Bilirubin Urine Urobilinogen Ur Leukocyte Esterase Urine WBC (Auto) Urine RBC (Auto) Urine Casts (Auto) U Epithel Cells (Auto) U Sm Round Cell (Auto) Urine Bacteria (Auto) Opiates Screen Methadone Screen Barbiturate Screen Phencyclidine Screen Ur Amphetamines Screen MDMA (Ecstasy) Screen Benzodiazepines Screen Cocaine Screen U Marijuana (THC) Screen 10/06/18 10/06/18 19:01 19:01 WBC RBC Hgb Hct MCV MCH MCHC RDW Plt Count MPV Absolute Neuts (auto) Total Counted Neutrophils % Neutrophils % (Manual) Band Neutrophils % Lymphocytes % Lymphocytes % (Manual) Monocytes % Monocytes % (Manual) Eosinophils % Eosinophils % (Manual) Basophils % Basophils % (Manual) Nucleated RBC % Hypochromia Microcytosis Tear Drop Cells ESR Sodium Potassium Chloride Carbon Dioxide Anion Gap BUN Creatinine Est GFR (CKD-EPI)AfAm Est GFR (CKD-EPI)NonAf Random Glucose Lactic Acid Calcium Total Bilirubin AST ALT Alkaline Phosphatase Creatine Kinase Troponin I C-Reactive Protein Total Protein Albumin Total Amylase Lipase Urine Color Yellow Urine Appearance Clear Urine pH 5.0 Ur Specific [place] 1.020 Urine Protein 2+ H Urine Glucose (UA) Negative Urine Ketones Negative Urine Blood Negative Urine Nitrite Negative Urine Bilirubin Negative Urine Urobilinogen 0.2 Ur Leukocyte Esterase Trace Urine WBC (Auto) 14 Urine RBC (Auto) 2 Urine Casts (Auto) 6 U Epithel Cells (Auto) 4.8 U Sm Round Cell (Auto) Wbcs present Urine Bacteria (Auto) 11.5 Opiates Screen Positive A* Methadone Screen Positive A* Barbiturate Screen Negative Phencyclidine Screen Negative Ur Amphetamines Screen Negative MDMA (Ecstasy) Screen Negative Benzodiazepines Screen Positive A* Cocaine Screen Positive A* U Marijuana (THC) Screen Negative
[2018-10-08] MEDS: DEXTROSE 5%-0.45% SALINE 1,000 ML IV SCH ×3 (06:32→21:27)
--- NOTE | 2018-10-08 08:17 | PN ---
Progress Note, Physician History of Present Illness: patient still c/o of back pain still dirrhoea - Current Medication List Current Medications: Active Medications Enalapril Maleate (Vasotec -) 10 mg PO DAILY [facility] Last Admin: 10/07/18 12:52 Dose: Not Given Heparin Sodium (Porcine) (Heparin -) 5,000 unit SQ BID [facility] Last Admin: 10/07/18 22:02 Dose: Not Given Dextrose/Sodium Chloride (D5-1/2ns -) 1,000 mls @ 125 mls/hr IV ASDIR [facility] Last Admin: 10/08/18 06:32 Dose: 125 mls/hr Vancomycin HCl (Vancomycin Oral Solution) 125 mg PO Q6HPO [facility] Last Admin: 10/08/18 06:17 Dose: 125 mg - Objective Vital Signs: Vital Signs Temperature 97.8 F 10/08/18 06:00 Pulse Rate 56 L 10/08/18 06:00 Respiratory Rate 18 10/08/18 06:00 Blood Pressure 141/73 10/08/18 06:00 O2 Sat by Pulse Oximetry (%) 98 10/08/18 00:15 Constitutional: Yes: Calm, Mild Distress Cardiovascular: Yes: Regular Rate and Rhythm Respiratory: Yes: Regular, CTA Bilaterally Gastrointestinal: Yes: Normal Bowel Sounds, Soft Musculoskeletal: Yes: WNL Extremities: Yes: WNL Neurological: Yes: Alert, Oriented Psychiatric: Yes: Alert, Oriented Labs: CBC, BMP 10/06/18 18:19 10/06/18 18:19 Assessment/Plan Problem List - Problems (1) Polysubstance (including opioids) dependence with physiol dependence Code(s): F19.20 - OTHER PSYCHOACTIVE SUBSTANCE DEPENDENCE, UNCOMPLICATED (2) Colostomy in place Code(s): Z93.3 - COLOSTOMY STATUS (3) Intravenous drug user Code(s): F19.90 - OTHER PSYCHOACTIVE SUBSTANCE USE, UNSPECIFIED, UNCOMPLICATED (4) Diabetes mellitus type II, controlled Code(s): E11.9 - TYPE 2 DIABETES MELLITUS WITHOUT COMPLICATIONS (5) Hepatitis C Code(s): B19.20 - UNSPECIFIED VIRAL HEPATITIS C WITHOUT HEPATIC COMA Qualifiers: (6) Hypertension Code(s): I10 - ESSENTIAL (PRIMARY) HYPERTENSION Qualifiers: 7 dirrhoea plan await for cx reports nutrition rest as per the team events noted
[2018-10-08 10:44] LABS: HEMATOCRIT 31.4 % (35.4-49); HEMOGLOBIN 10.5 GM/dL (11.7-16.9); MCH 25.7 pg (25.7-33.7); MCHC 33.3 g/dl (32.0-35.9); MEAN CELL VOLUME 76.9 fl (80-96); PLATELET COUNT 267 K/MM3 (134-434); RBC 4.09 M/mm3 (4.00-5.60); RDW 16.8 % (11.9-15.9); WHITE BLOOD COUNT 5.6 K/mm3 (4.0-10.0)
[2018-10-08] MEDS ORDERED: VANCOMYCIN HCL 1,500 MG in DEXTROSE 5%-WATER - 500 ML IVPB ONE (11:00)
[2018-10-08 11:09] LABS: CALCIUM 8.6 mg/dL (8.5-10.1); CREATININE 0.7 mg/dL (0.55-1.3); POTASSIUM 3.9 mmol/L (3.5-5.1)
--- NOTE | 2018-10-08 11:33 | PN ---
Progress Note, Physician - Current Medication List Current Medications: Active Medications Enalapril Maleate (Vasotec -) 10 mg PO DAILY [facility] Last Admin: 10/07/18 12:52 Dose: Not Given Heparin Sodium (Porcine) (Heparin -) 5,000 unit SQ BID [facility] Last Admin: 10/07/18 22:02 Dose: Not Given Dextrose/Sodium Chloride (D5-1/2ns -) 1,000 mls @ 125 mls/hr IV ASDIR [facility] Last Admin: 10/08/18 06:32 Dose: 125 mls/hr Vancomycin HCl 1,500 mg/ (Dextrose) 500 mls @ 250 mls/hr IVPB ONCE ONE; Protocol Stop: 10/08/18 12:59 Vancomycin HCl (Vancomycin Oral Solution) 125 mg PO Q6HPO [facility] Last Admin: 10/08/18 06:17 Dose: 125 mg - Objective Vital Signs: Vital Signs Temperature 97.8 F 10/08/18 06:00 Pulse Rate 56 L 10/08/18 06:00 Respiratory Rate 18 10/08/18 06:00 Blood Pressure 141/73 10/08/18 06:00 O2 Sat by Pulse Oximetry (%) 98 10/08/18 00:15 Constitutional: Yes: No Distress HENT: Yes: Atraumatic Neck: Yes: Supple Cardiovascular: Yes: Regular Rate and Rhythm Respiratory: Yes: CTA Bilaterally Gastrointestinal: Yes: Normal Bowel Sounds Extremities: Yes: WNL Neurological: Yes: Alert, Oriented Labs: CBC, BMP 10/08/18 10:25 10/08/18 10:25 Problem List - Problems (1) Polysubstance (including opioids) dependence with physiol dependence Assessment/Plan: on librium protocol for etoh Code(s): F19.20 - OTHER PSYCHOACTIVE SUBSTANCE DEPENDENCE, UNCOMPLICATED (2) Colostomy in place Code(s): Z93.3 - COLOSTOMY STATUS (3) Intravenous drug user Code(s): F19.90 - OTHER PSYCHOACTIVE SUBSTANCE USE, UNSPECIFIED, UNCOMPLICATED (4) Diabetes mellitus type II, controlled Code(s): E11.9 - TYPE 2 DIABETES MELLITUS WITHOUT COMPLICATIONS (5) Hepatitis C Code(s): B19.20 - UNSPECIFIED VIRAL HEPATITIS C WITHOUT HEPATIC COMA Qualifiers: (6) Hypertension Assessment/Plan: on meds Code(s): I10 - ESSENTIAL (PRIMARY) HYPERTENSION Qualifiers:
[2018-10-08] MEDS ORDERED: PT OWN MED DRAWER 7, Y5N ONE ×2 (11:43→13:06)
[2018-10-08] MEDS: ENALAPRIL MALEATE 10 MG TABLET (FP) PO SCH (11:46)
[2018-10-08] MEDS: HEPARIN NA (PORCINE) 5,000 UNITS/ML 1ML VIAL SQ SCH ×2 (11:46→21:30)
[2018-10-08] MEDS ORDERED: ACETAMINOPHEN 325 MG TABLET (FP) PO PRN (12:41)
--- NOTE | 2018-10-08 14:31 | CONSULT ---
Consult Detox [facility] Reason for Current Admission/Consult: Patient in withdrawal with multisubstance use disorder Referred by:: Susana - History History of Present Illness: Patient is a 43 year old light skinned male with a past medical history of Anemia, HTN, IVDA, opioid dependence; xanax, cocaine, and nicotine dependence, Type II diabetes, and hep C here today for evaluation of somnolence. The patient was sent over from [facility] for colostomy and watery stools. - History Source History Provided By: Patient Limitations to Obtaining History: No Limitations - Alcohol/Substance Use Hx Alcohol Use: Yes (multi alcohol usages) Hx Substance Use: Yes (cocaine, heroin, methadone on streets and xanax illicitly also) Hx Substance Use Treatment: Yes (multi substance use as above) - Current Drug/Alcohol Use Alcohol Route: Oral Frequency: 3-6 times per week Amount used: 1 pint hard liquor Age of first use: 20 Date of Last Use: 10/06/18 Cocaine Route: Inhalation Frequency: Daily Amount used: 2 grams Age of first use: 40 Date of Last Use: 10/07/18 Alprazolam (Xanax) Route: Oral Frequency: Daily Amount used: 10 mg three times daily and additional illicit use Age of first use: 40 Date of Last Use: 10/07/18 Heroin Route: Inhalation Frequency: Daily Amount used: 2 grams daily Age of first use: 40 Date of Last Use: 10/07/18 - Past Medical History Cardio/Vascular: Yes: HTN Gastrointestinal: Yes: Other (Colitis, s/p Colostomy, Vague midabdominal pain, s /p appendectomy with multiple complications , operated a few years ago in [place]..) Hepatobiliary: Yes: Hepatitis C Psych: Yes: Addictions (see below) Additional Medical History: has large ventral incisional hernia palpable - Past Surgical History Past Surgical History: Yes: Colostomy - Significant Medical Findings: Thin, cachectic appearing light skinned male. Visibly diaphoretic. Cor: Tachy, S1, S2 no murmurs Lungs: Clear to Auscultation Bilaterally Abdomen: Visible colostomy bag left lower quadrant, no rebound or tenderness, active bowel sounds. Ext: FROM, normal pulses, no deficits. CIWA Score - CIWA Score Nausea/Vomitin Muscle Tremors: 3 Anxiety: 4-Mod. Anxious/Guarded Agitation: 2 Paroxysmal Sweats: 4-Forehead w/Sweat Beads Orientation: 1-Uncertain about Date Tacttile Disturbances: 0-None Auditory Disturbances: 0-None Visual Disturbances: 1-Very Mild Sensitivity Headache: 2-Mild CIWA-Ar Total Score: 19 COWS - Scale Resting Pulse: 1= RI 81-100 Sweatin=Flushed/Facial Moisture Restless Observation: 1= Difficult to Sit Still Pupil Size: 1= Pupils >than Normal Bone or Joint Aches: 2= Severe Diffuse Aches Runny Nose/ Eye Tearin= Nasal Congestion GI Upset > 30mins: 2= Nausea/Diarrhea Tremor Observation: 1= Tremor [place], Not Seen Yawning Observation: 0= None Anxiety or Irritability: 2=Irritable/Anxious Goose Flesh Skin: 0=Smooth Skin COWS Score: 13 Assessment Plan - Plan Plan: 1. Multisubstance use disorder: Patient in obvious withdrawals. Will start Librium/Methadone Detox protocols. Keep patient comfortable and hydrated. Upon completion or when patient is stable medically, he can be transferred to either continue detox or to follow up in rehab. 2. Colon Ca with colostomy: Awaiting results of Clostridium Diff cultures. Preventive antibiotics 3. HTN: Agree with current plan and care. 4. Anxiety/ Depression: Would benefit from psych consult to see if patient needs medication assisted treatment. Dr. Kincaid - Medication Detox Regimen/Protocol: Methadone/Librium
[2018-10-08] MEDS ORDERED: METHADONE HCL 10 MG TABLET PO ONE (14:40)
[2018-10-08] MEDS ORDERED: cloNIDine HCL 0.1 MG TABLET PO PRN (14:40)
[2018-10-08] MEDS ORDERED: chlordiazePOXIDE HCL 25 MG CAPSULE PO PRN (14:40)
[2018-10-08] MEDS: chlordiazePOXIDE HCL 25 MG CAPSULE PO SCH ×2 (16:36→23:02)
[2018-10-09] MEDS: VANCOMYCIN 250 MG/5 ML ORAL SOLUTION PO SCH ×2 (00:02→05:48)
[2018-10-09] MEDS: DEXTROSE 5%-0.45% SALINE 1,000 ML IV SCH ×3 (02:13→21:33)
[2018-10-09] MEDS: chlordiazePOXIDE HCL 25 MG CAPSULE PO SCH ×4 (05:48→22:40)
--- NOTE | 2018-10-09 09:56 | PN ---
Progress Note, Physician History of Present Illness: stable no new issues improving - Current Medication List Current Medications: Active Medications Acetaminophen (Tylenol -) 650 mg PO Q6H PRN PRN Reason: FEVER/PAIN Last Admin: 10/08/18 13:15 Dose: 650 mg Chlordiazepoxide HCl (Librium -) 10 mg PO [id number] [facility] Stop: 10/11/18 23:01 Chlordiazepoxide HCl (Librium -) 10 mg PO Q12H [facility] Stop: 10/12/18 17:01 Chlordiazepoxide HCl (Librium -) 10 mg PO Q4H PRN PRN Reason: WITHDRAWAL(CONT SUBST) Stop: 10/12/18 00:00 Chlordiazepoxide HCl (Librium -) 10 mg PO ONCE@0500 ONE Stop: 10/13/18 05:01 Chlordiazepoxide HCl (Librium -) 50 mg PO [id number] [facility] Stop: 10/09/18 23:01 Last Admin: 10/09/18 05:48 Dose: 50 mg Chlordiazepoxide HCl (Librium -) 25 mg PO [id number] [facility] Stop: 10/10/18 23:01 Chlordiazepoxide HCl (Librium -) 25 mg PO Q4H PRN PRN Reason: WITHDRAWAL(CONT SUBST) Stop: 10/09/18 14:39 Clonidine (Catapres -) 0.1 mg PO Q4H PRN PRN Reason: Withdrawal Symptoms Stop: 10/10/18 23:59 Enalapril Maleate (Vasotec -) 10 mg PO DAILY [facility] Last Admin: 10/08/18 11:46 Dose: 10 mg Heparin Sodium (Porcine) (Heparin -) 5,000 unit SQ BID [facility] Last Admin: 10/08/18 21:30 Dose: 5,000 unit Dextrose/Sodium Chloride (D5-1/2ns -) 1,000 mls @ 125 mls/hr IV ASDIR [facility] Last Admin: 10/09/18 02:13 Dose: 125 mls/hr Methadone HCl 20 mg/ Methadone (HCl 5 mg) 25 mg PO ONCE ONE Stop: 10/09/18 10:01 Methadone HCl 10 mg/ Methadone (HCl 5 mg) 15 mg PO ONCE ONE Stop: 10/11/18 10:01 Methadone HCl (Dolophine -) 5 mg PO ONCE@0600 ONE Stop: 10/13/18 06:01 Methadone HCl (Dolophine -) 10 mg PO ONCE ONE Stop: 10/12/18 10:01 Methadone HCl (Dolophine -) 20 mg PO ONCE ONE Stop: 10/10/18 10:01 - Objective Vital Signs: Vital Signs Temperature 98.0 F 10/08/18 21:32 Pulse Rate 47 L 10/08/18 21:32 Respiratory Rate 18 10/08/18 21:32 Blood Pressure 116/65 10/08/18 21:32 O2 Sat by Pulse Oximetry (%) 98 10/08/18 20:50 Constitutional: Yes: No Distress, Calm, Thin Respiratory: Yes: Regular, CTA Bilaterally Gastrointestinal: Yes: Normal Bowel Sounds, Soft, Other (colostomy in place) Musculoskeletal: Yes: WNL Extremities: Yes: WNL Neurological: Yes: Alert, Oriented Psychiatric: Yes: Alert, Oriented Labs: CBC, BMP 10/08/18 10:25 10/08/18 10:25 Assessment/Plan Problem List - Problems (1) Polysubstance (including opioids) dependence with physiol dependence Code(s): F19.20 - OTHER PSYCHOACTIVE SUBSTANCE DEPENDENCE, UNCOMPLICATED (2) Colostomy in place Code(s): Z93.3 - COLOSTOMY STATUS (3) Intravenous drug user Code(s): F19.90 - OTHER PSYCHOACTIVE SUBSTANCE USE, UNSPECIFIED, UNCOMPLICATED (4) Diabetes mellitus type II, controlled Code(s): E11.9 - TYPE 2 DIABETES MELLITUS WITHOUT COMPLICATIONS (5) Hepatitis C Code(s): B19.20 - UNSPECIFIED VIRAL HEPATITIS C WITHOUT HEPATIC COMA Qualifiers: (6) Hypertension Code(s): I10 - ESSENTIAL (PRIMARY) HYPERTENSION Qualifiers: 7 dirrhoea plan all cx reports noted will stop oral vanco
[2018-10-09] MEDS ORDERED: METHADONE 20 MG, METHADONE 5 MG PO ONE (10:00)
[2018-10-09] MEDS ORDERED: METHADONE HCL 5 MG TABLET ONE (10:56)
[2018-10-09] MEDS ORDERED: METHADONE HCL 10 MG TABLET ONE (10:56)
[2018-10-09] MEDS: ENALAPRIL MALEATE 10 MG TABLET (FP) PO SCH (10:59)
[2018-10-09] MEDS: HEPARIN NA (PORCINE) 5,000 UNITS/ML 1ML VIAL SQ SCH ×2 (10:59→21:24)
--- NOTE | 2018-10-09 12:16 | PN ---
Progress Note, Physician - Current Medication List Current Medications: Active Medications Acetaminophen (Tylenol -) 650 mg PO Q6H PRN PRN Reason: FEVER/PAIN Last Admin: 10/08/18 13:15 Dose: 650 mg Chlordiazepoxide HCl (Librium -) 10 mg PO [id number] [facility] Stop: 10/11/18 23:01 Chlordiazepoxide HCl (Librium -) 10 mg PO Q12H [facility] Stop: 10/12/18 17:01 Chlordiazepoxide HCl (Librium -) 10 mg PO Q4H PRN PRN Reason: WITHDRAWAL(CONT SUBST) Stop: 10/12/18 00:00 Chlordiazepoxide HCl (Librium -) 10 mg PO ONCE@0500 ONE Stop: 10/13/18 05:01 Chlordiazepoxide HCl (Librium -) 50 mg PO [id number] [facility] Stop: 10/09/18 23:01 Last Admin: 10/09/18 10:59 Dose: 50 mg Chlordiazepoxide HCl (Librium -) 25 mg PO [id number] [facility] Stop: 10/10/18 23:01 Chlordiazepoxide HCl (Librium -) 25 mg PO Q4H PRN PRN Reason: WITHDRAWAL(CONT SUBST) Stop: 10/09/18 14:39 Clonidine (Catapres -) 0.1 mg PO Q4H PRN PRN Reason: Withdrawal Symptoms Stop: 10/10/18 23:59 Enalapril Maleate (Vasotec -) 10 mg PO DAILY [facility] Last Admin: 10/09/18 10:59 Dose: 10 mg Heparin Sodium (Porcine) (Heparin -) 5,000 unit SQ BID [facility] Last Admin: 10/09/18 10:59 Dose: 5,000 unit Dextrose/Sodium Chloride (D5-1/2ns -) 1,000 mls @ 125 mls/hr IV ASDIR [facility] Last Admin: 10/09/18 10:59 Dose: 125 mls/hr Methadone HCl 10 mg/ Methadone (HCl 5 mg) 15 mg PO ONCE ONE Stop: 10/11/18 10:01 Methadone HCl (Dolophine -) 5 mg PO ONCE@0600 ONE Stop: 10/13/18 06:01 Methadone HCl (Dolophine -) 10 mg PO ONCE ONE Stop: 10/12/18 10:01 Methadone HCl (Dolophine -) 20 mg PO ONCE ONE Stop: 10/10/18 10:01 - Objective Vital Signs: Vital Signs Temperature 98.0 F 10/08/18 21:32 Pulse Rate 47 L 10/08/18 21:32 Respiratory Rate 18 10/08/18 21:32 Blood Pressure 116/65 10/08/18 21:32 O2 Sat by Pulse Oximetry (%) 98 10/08/18 20:50 Constitutional: Yes: No Distress HENT: Yes: Atraumatic Neck: Yes: Supple Cardiovascular: Yes: Regular Rate and Rhythm Gastrointestinal: Yes: Normal Bowel Sounds Extremities: Yes: WNL Neurological: Yes: Alert, Oriented Labs: CBC, BMP 10/08/18 10:25 10/08/18 10:25 Problem List - Problems (1) Polysubstance (including opioids) dependence with physiol dependence Assessment/Plan: on librium protocol for etoh Code(s): F19.20 - OTHER PSYCHOACTIVE SUBSTANCE DEPENDENCE, UNCOMPLICATED (2) Colostomy in place Code(s): Z93.3 - COLOSTOMY STATUS (3) Intravenous drug user Code(s): F19.90 - OTHER PSYCHOACTIVE SUBSTANCE USE, UNSPECIFIED, UNCOMPLICATED (4) Diabetes mellitus type II, controlled Code(s): E11.9 - TYPE 2 DIABETES MELLITUS WITHOUT COMPLICATIONS (5) Hepatitis C Code(s): B19.20 - UNSPECIFIED VIRAL HEPATITIS C WITHOUT HEPATIC COMA Qualifiers: (6) Hypertension Assessment/Plan: on meds Code(s): I10 - ESSENTIAL (PRIMARY) HYPERTENSION Qualifiers:
[2018-10-10] MEDS: chlordiazePOXIDE HCL 25 MG CAPSULE PO SCH ×4 (05:39→22:31)
--- NOTE | 2018-10-10 08:43 | PN ---
Progress Note, Physician History of Present Illness: patient stable looks much better - Current Medication List Current Medications: Active Medications Acetaminophen (Tylenol -) 650 mg PO Q6H PRN PRN Reason: FEVER/PAIN Last Admin: 10/08/18 13:15 Dose: 650 mg Chlordiazepoxide HCl (Librium -) 10 mg PO [id number] [facility] Stop: 10/11/18 23:01 Chlordiazepoxide HCl (Librium -) 10 mg PO Q12H [facility] Stop: 10/12/18 17:01 Chlordiazepoxide HCl (Librium -) 10 mg PO Q4H PRN PRN Reason: WITHDRAWAL(CONT SUBST) Stop: 10/12/18 00:00 Chlordiazepoxide HCl (Librium -) 10 mg PO ONCE@0500 ONE Stop: 10/13/18 05:01 Chlordiazepoxide HCl (Librium -) 25 mg PO [id number] [facility] Stop: 10/10/18 23:01 Last Admin: 10/10/18 05:39 Dose: 25 mg Clonidine (Catapres -) 0.1 mg PO Q4H PRN PRN Reason: Withdrawal Symptoms Stop: 10/10/18 23:59 Enalapril Maleate (Vasotec -) 10 mg PO DAILY [facility] Last Admin: 10/09/18 10:59 Dose: 10 mg Heparin Sodium (Porcine) (Heparin -) 5,000 unit SQ BID [facility] Last Admin: 10/09/18 21:24 Dose: 5,000 unit Dextrose/Sodium Chloride (D5-1/2ns -) 1,000 mls @ 125 mls/hr IV ASDIR [facility] Last Admin: 10/09/18 21:33 Dose: 125 mls/hr Methadone HCl 10 mg/ Methadone (HCl 5 mg) 15 mg PO ONCE ONE Stop: 10/11/18 10:01 Methadone HCl (Dolophine -) 5 mg PO ONCE@0600 ONE Stop: 10/13/18 06:01 Methadone HCl (Dolophine -) 10 mg PO ONCE ONE Stop: 10/12/18 10:01 Methadone HCl (Dolophine -) 20 mg PO ONCE ONE Stop: 10/10/18 10:01 - Objective Vital Signs: Vital Signs Temperature 97.8 F 10/09/18 22:00 Pulse Rate 58 L 10/09/18 22:00 Respiratory Rate 18 10/09/18 22:00 Blood Pressure 98/48 L 10/09/18 22:00 O2 Sat by Pulse Oximetry (%) 98 10/08/18 20:50 Constitutional: Yes: No Distress, Calm Cardiovascular: Yes: Regular Rate and Rhythm Respiratory: Yes: Regular, CTA Bilaterally Gastrointestinal: Yes: Normal Bowel Sounds, Soft, Other (colostomy in place) Musculoskeletal: Yes: WNL Extremities: Yes: WNL Neurological: Yes: Alert, Oriented Psychiatric: Yes: Alert, Oriented Labs: CBC, BMP 10/08/18 10:25 10/08/18 10:25 Assessment/Plan Problem List - Problems (1) Polysubstance (including opioids) dependence with physiol dependence Code(s): F19.20 - OTHER PSYCHOACTIVE SUBSTANCE DEPENDENCE, UNCOMPLICATED (2) Colostomy in place Code(s): Z93.3 - COLOSTOMY STATUS (3) Intravenous drug user Code(s): F19.90 - OTHER PSYCHOACTIVE SUBSTANCE USE, UNSPECIFIED, UNCOMPLICATED (4) Diabetes mellitus type II, controlled Code(s): E11.9 - TYPE 2 DIABETES MELLITUS WITHOUT COMPLICATIONS (5) Hepatitis C Code(s): B19.20 - UNSPECIFIED VIRAL HEPATITIS C WITHOUT HEPATIC COMA Qualifiers: (6) Hypertension Code(s): I10 - ESSENTIAL (PRIMARY) HYPERTENSION Qualifiers: 7 dirrhoea plan nutrition continue current mgmt
[2018-10-10] MEDS ORDERED: METHADONE HCL 10 MG TABLET PO ONE (10:00)
[2018-10-10] MEDS: ENALAPRIL MALEATE 10 MG TABLET (FP) PO SCH (10:32)
[2018-10-10] MEDS: HEPARIN NA (PORCINE) 5,000 UNITS/ML 1ML VIAL SQ SCH ×2 (10:33→22:31)
--- NOTE | 2018-10-10 13:54 | PN ---
Progress Note, Physician - Current Medication List Current Medications: Active Medications Acetaminophen (Tylenol -) 650 mg PO Q6H PRN PRN Reason: FEVER/PAIN Last Admin: 10/08/18 13:15 Dose: 650 mg Chlordiazepoxide HCl (Librium -) 10 mg PO [id number] [facility] Stop: 10/11/18 23:01 Chlordiazepoxide HCl (Librium -) 10 mg PO Q12H [facility] Stop: 10/12/18 17:01 Chlordiazepoxide HCl (Librium -) 10 mg PO Q4H PRN PRN Reason: WITHDRAWAL(CONT SUBST) Stop: 10/12/18 00:00 Chlordiazepoxide HCl (Librium -) 10 mg PO ONCE@0500 ONE Stop: 10/13/18 05:01 Chlordiazepoxide HCl (Librium -) 25 mg PO [id number] [facility] Stop: 10/10/18 23:01 Last Admin: 10/10/18 10:33 Dose: 25 mg Clonidine (Catapres -) 0.1 mg PO Q4H PRN PRN Reason: Withdrawal Symptoms Stop: 10/10/18 23:59 Enalapril Maleate (Vasotec -) 10 mg PO DAILY [facility] Last Admin: 10/10/18 10:32 Dose: 10 mg Heparin Sodium (Porcine) (Heparin -) 5,000 unit SQ BID [facility] Last Admin: 10/10/18 10:33 Dose: 5,000 unit Dextrose/Sodium Chloride (D5-1/2ns -) 1,000 mls @ 125 mls/hr IV ASDIR [facility] Last Admin: 10/09/18 21:33 Dose: 125 mls/hr Methadone HCl 10 mg/ Methadone (HCl 5 mg) 15 mg PO ONCE ONE Stop: 10/11/18 10:01 Methadone HCl (Dolophine -) 5 mg PO ONCE@0600 ONE Stop: 10/13/18 06:01 Methadone HCl (Dolophine -) 10 mg PO ONCE ONE Stop: 10/12/18 10:01 - Objective Vital Signs: Vital Signs Temperature 97.8 F 10/09/18 22:00 Pulse Rate 58 L 10/09/18 22:00 Respiratory Rate 18 10/09/18 22:00 Blood Pressure 98/48 L 10/09/18 22:00 O2 Sat by Pulse Oximetry (%) 98 10/08/18 20:50 Constitutional: Yes: No Distress HENT: Yes: Atraumatic Neck: Yes: Supple Cardiovascular: Yes: Regular Rate and Rhythm Respiratory: Yes: CTA Bilaterally Gastrointestinal: Yes: Normal Bowel Sounds, Other (colostomy in place) Extremities: Yes: WNL Edema: No Neurological: Yes: Alert Labs: CBC, BMP 10/08/18 10:25 10/08/18 10:25 Problem List - Problems (1) Polysubstance (including opioids) dependence with physiol dependence Assessment/Plan: on librium taper Code(s): F19.20 - OTHER PSYCHOACTIVE SUBSTANCE DEPENDENCE, UNCOMPLICATED (2) Colostomy in place Code(s): Z93.3 - COLOSTOMY STATUS (3) Intravenous drug user Code(s): F19.90 - OTHER PSYCHOACTIVE SUBSTANCE USE, UNSPECIFIED, UNCOMPLICATED (4) Diabetes mellitus type II, controlled Code(s): E11.9 - TYPE 2 DIABETES MELLITUS WITHOUT COMPLICATIONS (5) Hepatitis C Code(s): B19.20 - UNSPECIFIED VIRAL HEPATITIS C WITHOUT HEPATIC COMA Qualifiers: (6) Hypertension Assessment/Plan: on meds Code(s): I10 - ESSENTIAL (PRIMARY) HYPERTENSION Qualifiers:
[2018-10-11] MEDS ORDERED: chlordiazePOXIDE 5 MG CAPSULE PO PRN
[2018-10-11] MEDS: chlordiazePOXIDE 5 MG CAPSULE PO SCH ×3 (05:37→16:34)
--- NOTE | 2018-10-11 08:28 | PN ---
Progress Note, Physician History of Present Illness: stable doing well no issues - Current Medication List Current Medications: Active Medications Acetaminophen (Tylenol -) 650 mg PO Q6H PRN PRN Reason: FEVER/PAIN Last Admin: 10/08/18 13:15 Dose: 650 mg Chlordiazepoxide HCl (Librium -) 10 mg PO [id number] [facility] Stop: 10/11/18 23:01 Last Admin: 10/11/18 05:37 Dose: 10 mg Chlordiazepoxide HCl (Librium -) 10 mg PO Q12H [facility] Stop: 10/12/18 17:01 Chlordiazepoxide HCl (Librium -) 10 mg PO Q4H PRN PRN Reason: WITHDRAWAL(CONT SUBST) Stop: 10/12/18 00:00 Chlordiazepoxide HCl (Librium -) 10 mg PO ONCE@0500 ONE Stop: 10/13/18 05:01 Enalapril Maleate (Vasotec -) 10 mg PO DAILY [facility] Last Admin: 10/10/18 10:32 Dose: 10 mg Heparin Sodium (Porcine) (Heparin -) 5,000 unit SQ BID [facility] Last Admin: 10/10/18 22:31 Dose: 5,000 unit Methadone HCl 10 mg/ Methadone (HCl 5 mg) 15 mg PO ONCE ONE Stop: 10/11/18 10:01 Methadone HCl (Dolophine -) 5 mg PO ONCE@0600 ONE Stop: 10/13/18 06:01 Methadone HCl (Dolophine -) 10 mg PO ONCE ONE Stop: 10/12/18 10:01 - Objective Vital Signs: Vital Signs Temperature 97.8 F 10/11/18 05:39 Pulse Rate 49 L 10/11/18 05:39 Respiratory Rate 18 10/11/18 05:39 Blood Pressure 104/54 L 10/11/18 05:39 O2 Sat by Pulse Oximetry (%) 98 10/08/18 20:50 Constitutional: Yes: No Distress, Calm Cardiovascular: Yes: S1, S2 Respiratory: Yes: Regular, CTA Bilaterally Gastrointestinal: Yes: Normal Bowel Sounds, Soft, Other (colostomy) Musculoskeletal: Yes: WNL Extremities: Yes: WNL Labs: CBC, BMP 10/08/18 10:25 10/08/18 10:25 Assessment/Plan Problem List - Problems (1) Polysubstance (including opioids) dependence with physiol dependence Code(s): F19.20 - OTHER PSYCHOACTIVE SUBSTANCE DEPENDENCE, UNCOMPLICATED (2) Colostomy in place Code(s): Z93.3 - COLOSTOMY STATUS (3) Intravenous drug user Code(s): F19.90 - OTHER PSYCHOACTIVE SUBSTANCE USE, UNSPECIFIED, UNCOMPLICATED (4) Diabetes mellitus type II, controlled Code(s): E11.9 - TYPE 2 DIABETES MELLITUS WITHOUT COMPLICATIONS (5) Hepatitis C Code(s): B19.20 - UNSPECIFIED VIRAL HEPATITIS C WITHOUT HEPATIC COMA Qualifiers: (6) Hypertension Code(s): I10 - ESSENTIAL (PRIMARY) HYPERTENSION Qualifiers: 7 dirrhoea plan nutrition continue current mgmt rest as per the team
[2018-10-11] MEDS ORDERED: METHADONE 10 MG, METHADONE 5 MG PO ONE (10:00)
[2018-10-11] MEDS ORDERED: METHADONE HCL 10 MG TABLET ONE (10:20)
[2018-10-11] MEDS ORDERED: METHADONE HCL 5 MG TABLET ONE (10:20)
[2018-10-11] MEDS: ENALAPRIL MALEATE 10 MG TABLET (FP) PO SCH (10:25)
[2018-10-11] MEDS: HEPARIN NA (PORCINE) 5,000 UNITS/ML 1ML VIAL SQ SCH (10:25)
[2018-10-11 15:22] VITALS: PULSE 80
--- NOTE | 2018-10-11 16:47 | DS ---
Physical Examination Vital Signs: Vital Signs Temperature 98.2 F 10/11/18 15:00 Pulse Rate 80 10/11/18 15:00 Respiratory Rate 18 10/11/18 15:00 Blood Pressure 110/50 L 10/11/18 15:00 O2 Sat by Pulse Oximetry (%) 98 10/08/18 20:50 Constitutional: Yes: No Distress Cardiovascular: Yes: Regular Rate and Rhythm Respiratory: Yes: CTA Bilaterally Gastrointestinal: Yes: Normal Bowel Sounds Extremities: Yes: WNL Edema: No Neurological: Yes: Alert, Oriented Labs: CBC, BMP 10/08/18 10:25 10/08/18 10:25 Discharge Summary Reason For Visit: WEAKNESS Current Active Problems Polysubstance (including opioids) dependence with physiol dependence (Acute) Sepsis (Acute) Urinary tract infection (Acute) Colostomy in place (Chronic) Condition: Fair - Instructions Disposition: AGAINST MEDICAL ADVICE - Home Medications Comprehensive Discharge Medication List: Ambulatory Orders Insulin Sliding Scale [Novolog Vial Sliding Scale -] 0 units SQ ASDIR PRN Quetiapine Fumarate [Seroquel] 300 mg PO BID 07/06/18 Alprazolam [Xanax] 2 mg PO BID 10/05/18 Tramadol HCl [Ultram] 200 mg PO BID 10/05/18 Enalapril Maleate [Vasotec -] 10 mg PO DAILY #30 tablet 10/11/18
[2018-10-11 17:08] VITALS: BP 100/52; TEMP 98.4
--- NOTE | 2018-10-11 19:28 | PN ---
Progress Note, Physician History of Present Illness: doing well - Objective Vital Signs: Vital Signs Temperature 98.4 F 10/11/18 17:06 Pulse Rate 80 10/11/18 17:06 Respiratory Rate 18 10/11/18 17:06 Blood Pressure 100/52 L 10/11/18 17:06 O2 Sat by Pulse Oximetry (%) 98 10/08/18 20:50 Constitutional: Yes: No Distress HENT: Yes: Atraumatic Neck: Yes: Supple Cardiovascular: Yes: Regular Rate and Rhythm Respiratory: Yes: CTA Bilaterally Gastrointestinal: Yes: Normal Bowel Sounds Extremities: Yes: WNL Edema: No Neurological: Yes: Alert, Oriented Labs: CBC, BMP 10/08/18 10:25 10/08/18 10:25 Problem List - Problems (1) Polysubstance (including opioids) dependence with physiol dependence Assessment/Plan: on librium taper WILL KEEP HIM UNTIL TOMORROW TO FINISH THE LIBRIUM Code(s): F19.20 - OTHER PSYCHOACTIVE SUBSTANCE DEPENDENCE, UNCOMPLICATED (2) Colostomy in place Code(s): Z93.3 - COLOSTOMY STATUS (3) Intravenous drug user Code(s): F19.90 - OTHER PSYCHOACTIVE SUBSTANCE USE, UNSPECIFIED, UNCOMPLICATED (4) Diabetes mellitus type II, controlled Code(s): E11.9 - TYPE 2 DIABETES MELLITUS WITHOUT COMPLICATIONS (5) Hepatitis C Code(s): B19.20 - UNSPECIFIED VIRAL HEPATITIS C WITHOUT HEPATIC COMA Qualifiers: (6) Hypertension Assessment/Plan: on meds Code(s): I10 - ESSENTIAL (PRIMARY) HYPERTENSION Qualifiers:
[2018-10-12] MEDS ORDERED: chlordiazePOXIDE 5 MG CAPSULE PO SCH (05:00)
[2018-10-12] MEDS ORDERED: METHADONE HCL 10 MG TABLET PO ONE (10:00)
[2018-10-13] MEDS ORDERED: chlordiazePOXIDE 5 MG CAPSULE PO ONE (05:00)
[2018-10-13] MEDS ORDERED: METHADONE HCL 5 MG TABLET PO ONE (06:00)
== END 2018-10-11 19:26 | disposition left against medical advice (07) | DRG 249 ==
LOC: JER 12:10 → INTOOBSV 19:50 → JERBED 19:50 → J8W 10-07 20:40 → OBSVTOIN 10-08 12:00
PROVIDERS: ADMIT Internal Medicine; ATTEND Internal Medicine
DX: R19.7 Diarrhea, unspecified (principal); F14.23 Cocaine dependence with withdrawal; F17.210 Nicotine dependence, cigarettes, uncomplicated; Z93.3 Colostomy status; E11.9 Type 2 diabetes mellitus without complications; Z68.21 Body mass index [BMI] 21.0-21.9, adult; B37.9 Candidiasis, unspecified; D72.829 Elevated white blood cell count, unspecified; N39.0 Urinary tract infection, site not specified; R40.0 Somnolence; I10 Essential (primary) hypertension; D64.9 Anemia, unspecified; F11.20 Opioid dependence, uncomplicated; R64 Cachexia; C18.9 Malignant neoplasm of colon, unspecified; F41.8 Other specified anxiety disorders
CPT/HCPCS: 36415; 71045-TC-FY; 80048; 80053; 80307; 81003; 82150; 82550; 83605; 83690; 84484; 85025; 85027; 85651; 86140; 87040; 87186; 87324; 87449; 93005; 93010; 99284-25; G0378; J0131; J1644